=== PATIENT | male | born 1940 | race Two or more races ===

== ENCOUNTER 2016-08-30 07:12 | Inpatient (IN) | payer MEDICARE, BC, OTHER ==
[~2016-08-30] VITALS: Ht 165.1 cm; Wt 73.2 kg
[2016-08-30] MEDS ORDERED: KETOROLAC 30 MG/ML VIAL (J1885) As Ordered ONE (07:44)
[2016-08-30] MEDS ORDERED: ONDANSETRON 4MG/2ML VIAL (J2405) As Ordered ONE (07:44)
[2016-08-30] MEDS ORDERED: MORPHINE 2 MG/ML 1ML SYRINGE As Ordered ONE ×3 (08:56→13:22)
--- NOTE | 2016-08-30 09:04 | REP ---
Lumbar spine series: Five views. History: Pain. Findings: Five views of the lumbar spine show preserved vertebral body heights and normal alignment. Degenerative disc disease is seen throughout the lumbar spine. No fracture or collapse is seen. Pedicles and posterior elements are intact. There is no evidence of spondylolysis or spondylolisthesis. The discogenic spurring is only slightly more prominent than on a comparison study of March 30, 2009. Vascular calcification is noted in a normal caliber aorta. There is a mild levoconvex curvature unchanged from the comparison study. Mild facet hypertrophy is noted at L4-5 and L5-S1 bilaterally. Sacrum and SI joints are intact. Psoas margins are symmetric. There are healed fractures visible on the right at T11 and T10 ribs proximally. These were not visible in 2009. Impression: Degenerative disc disease diffusely. Mild facet hypertrophy. Changes slightly more prominent than on the 2009 prior study. No acute bony abnormality. Old healed rib fractures noted on the right at T11 and T10. Signed by Evert Romano MD 08/30/2016 09:24 A
[2016-08-30] MEDS ORDERED: ASPI1TAB PO (11:41)
[2016-08-30] MEDS ORDERED: HYDR200T3 PO (11:41)
[2016-08-30] MEDS ORDERED: RABE1TAB PO (11:41)
[2016-08-30] MEDS ORDERED: RAMI10CA PO (11:41)
[2016-08-30] MEDS ORDERED: FOLI1TAB2 PO (11:41)
[2016-08-30] MEDS ORDERED: METH2.5TA PO (11:41)
--- NOTE | 2016-08-30 13:58 | REP ---
Right hip series: Two views. History: Pain. Findings: AP and frog-leg views of the right hip are compared with the prior study from April 15, 2012. There is femoral acetabular spurring consistent with osteoarthritis. This is radiographically unchanged from the 2012 prior study. No erosive change is seen. Periarticular soft tissues are unremarkable. Impression: Right hip osteoarthritis. No fracture seen. No acute bony abnormality. Signed by Evert Romano MD 08/30/2016 03:00 P
[2016-08-30] MEDS ORDERED: PERCOCET 5MG/325MG TAB As Ordered ONE (14:07)
[2016-08-30 14:16] LABS: ANION GAP 8 MEQ/L (8-16); BLOOD UREA NITROGEN 25 MG/DL (7-18); CALCIUM LEVEL 8.7 MG/DL (8.8-10.2); CARBON DIOXIDE LEVEL 27 MEQ/L (21-32); CHLORIDE LEVEL 111 MEQ/L (98-107); GLUCOSE, FASTING 107 MG/DL (83-110); MAGNESIUM LEVEL 2.3 MG/DL (1.8-2.4); POTASSIUM SERUM 4.2 MEQ/L (3.5-5.1); SODIUM LEVEL 146 MEQ/L (136-145)
[2016-08-30 14:25] LABS: BASO % 0.2 % (0.0-1.0); EOS # 0.2 K/mm3 (0.0-0.50); EOS % 1.3 % (0.0-3.0); LARGE UNSTAINED CELL # 0.3 K/mm3 (0.0-0.4); LARGE UNSTAINED CELL % 2.3 % (0.0-4.0); LYMPH # 1.5 K/mm3 (1.5-4.5); LYMPH % 10.8 % (24.0-44.0); MEAN CORPUSCULAR HEMOGLOBIN 30.4 pg (27.0-33.0); MEAN CORPUSCULAR HGB CONC 32.3 g/dl (32.0-36.5); MEAN CORPUSCULAR VOLUME 94.2 fl (80.0-96.0); MONO # 1.3 K/mm3 (0.0-0.8); MONO % 9.7 % (0.0-5.0); NEUTROPHILS # 10.2 K/mm3 (1.8-7.7); NEUTROPHILS % 75.8 % (36.0-66.0); PLATELET COUNT, AUTOMATED 289 k/mm3 (150-450); RED CELL DISTRIBUTION WIDTH 13.5 % (11.5-14.5); WHITE BLOOD COUNT 13.5 K/mm3 (4.0-10.0)
[2016-08-30 14:49] LABS: CREATININE FOR GFR 1.23 MG/DL (0.70-1.30); GLOMERULAR FILTRATION RATE > 60.0 (>42)
[2016-08-30 15:11] LABS: ERYTHROCYTE SEDIMENTATION RATE 65 mm/hr (0-20)
--- NOTE | 2016-08-30 15:28 | HPE ---
DATE OF ADMISSION: 08/30/2016 PRIMARY CARE PROVIDER: Dr. Severiano Gann CHIEF COMPLAINT: Right-sided back pain. HISTORY OF PRESENT ILLNESS: This is a 76-year-old male patient with underlying medical history of rheumatoid arthritis, hypertension, gastroesophageal reflux disease (GERD). The patient presented to the hospital with right-sided back pain. As per patient on Saturday, the patient when he felt a pinch of pain going down his leg. The patient denies any fall. Denies any altered mental status. The patient subsequently drove home, but for the next 24 hours the patient was in the bed not able to do much walking, with significant pain with movement of right lower extremities. The patient denies any urinary incontinence or fecal incontinence. The patient denies any trauma or any strenuous activities. Denies any fevers or chills, dysuria. Denies any chest pain, pressure or discomfort. The patient denies any back pain in the past. ALLERGIES: SULFA antibiotics. PAST MEDICAL HISTORY: Rheumatoid arthritis. Hypertension. GERD. PAST SURGICAL HISTORY: Some facial cyst removal. SOCIAL HISTORY: The patient smokes a pack per day for 50 years. Agreeable to nicotine patch. The patient drinks alcohol, one beer once a month. FAMILY HISTORY: Noncontributory. HOME MEDICATION: - aspirin 81 mg by mouth nightly - folic acid 1 mg by mouth nightly - hydroxychloroquine 200 mg by mouth nightly - methotrexate 2.5 mg tablet, 7 tablets every Saturday - Rabeprazole 20 mg by mouth nightly - Ramipril 10 mg by mouth nightly REVIEW OF SYSTEMS: The patient denies any headache, lightheadedness, vision change, hearing change. Denies any fevers, chills. Denies any nausea, vomiting, shortness of breath, cough. Denies any chest pain, pressure or discomfort. Denies any palpitations. Denies any abdominal pain, diarrhea or constipation, dysuria or hematuria. Reported right hip pain with movement of right lower extremity. Sensation intact. No paresthesias bilateral. No bleeding or bruising. No depression or suicide ideation. PHYSICAL EXAMINATION: VITAL SIGNS: Temperature 97.4, pulse 72, respirations 20, blood pressure 141/67, pulse oximetry 93% on room air. GENERAL: The patient alert and oriented times three. In no acute distress. HEENT: Normocephalic, atraumatic. PULMONARY: Bilateral clear to auscultation. CARDIAC: Regular rate and rhythm. Normal S1, S2. ABDOMEN: Soft, nontender, nondistended. EXTREMITIES: No edema bilateral lower extremities. Right lower extremity straight leg test positive for significant pain. Left lower extremity straight leg test negative. Able to raise without any limitations. Significant point tenderness around the right side of patient's back around the right hip area and right flank. LABORATORY: WBC 13.5, hemoglobin and hematocrit 12.7/39.4, platelets 289. Chemistry: Sodium 146, potassium 4.2, chloride 111, bicarbonate 27, BUN 25, creatinine pending. Magnesium 2.3. X-rays of the hip and lumbar spine shows right hip osteoarthritis. No fracture seen. No bony abnormalities. X-ray of the lumbar spine shows degenerative disc disease diffusely. Mild facet hypertrophy. Change is slightly more pronounced compared to 2008. ASSESSMENT AND PLAN: This is a 76-year-old male patient with underlying medical history of rheumatoid arthritis, GERD, hypertension, smoker presented to the hospital with right-sided back pain and right hip pain. PROBLEM LIST: 1. Right-sided back pain. Right hip pain. X-rays appreciated. Will obtain MRI of the lumbosacral as well as the right hip. Physical therapy and pain management consulted. Continue pain medication as ordered. Bowel regimen is ordered. Will continue to follow. 2. Leukocytosis. Possible reactive versus infectious. Followup UA, urine cultures, blood cultures. Followup erythrocyte sedimentation rate, CRP. 3. History of rheumatoid arthritis. Continue home medications. 4. Hypertension. Continue home medications. 5. Smoking counseling provided. Nicotine patch. 6. GERD. Continue proton pump inhibitor (PPI). 7. Deep venous thrombosis (DVT) prophylaxis. Patient on heparin subcutaneous. DISPOSITION PLANNING: Pending pain management and additional imaging studies, physical therapy.
[2016-08-30] MEDS ORDERED: ACETAMINOPHEN 325 MG TAB As Ordered ONE (15:53)
--- NOTE | 2016-08-30 16:03 | REP ---
MRI LUMBAR SPINE WITHOUT CONTRAST: HISTORY: Back pain. Decreased signal intensity on T2-weighted images is present in the lumbar intervertebral discs. The L2-3 through L5-S1 intervertebral discs are decreased in height. These findings are consistent with disc degeneration. There is no disc bulge or herniation at the L1-2 level. The L1 nerves exit the neural foramina without compression. A diffuse disc bulge is present at the L2-3 level. There is hypertrophy of the ligamenta flava and posterior articulating facets. These findings produce mild central canal stenosis. The L2 nerves exit the neural foramina without compression. A diffuse disc bulge is present at the L3-4 level. There is hypertrophy of the ligamenta flava and posterior articulating facets. These findings produce mild central canal stenosis. The L3 nerves exit the neural foramina without compression. A diffuse disc bulge is present at the L4-5 level. There is hypertrophy of the ligamenta flava and posterior articulating facets. There are 3 mm of grade 1 spondylolisthesis of L4 on L5. These findings produce moderate central canal stenosis. The L4 nerves exit the neural foramina without compression. Fluid is present in the L4-5 facet joints. A diffuse disc bulge is present at the L5-S1 level. There is no thecal sac compression. There is hypertrophy of the posterior articulating facets. The L5 nerves exit the neural foramina without compression. The conus medullaris is normal in appearance terminating at the level of the T12-L1 intervertebral disc. Normal signal intensity is present in the lumbar vertebral bodies. A 4.9 cm cyst is present in the left kidney. IMPRESSION: 1. Minimal central canal stenosis at the L2-3 and L3-4 levels secondary to disc bulge, ligamentous and facet hypertrophy. 2. Moderate central canal stenosis at the L4-5 level secondary to disc bulge, ligamentous and facet hypertrophy and grade 1 spondylolisthesis. 3. Diffuse disc bulge at the L5-S1 level without thecal sac or nerve compression. 4. 4.9 cm left renal cyst. Ultrasound may be helpful for further evaluation. Signed by Brennen Monzon MD 08/30/2016 04:10 P
--- NOTE | 2016-08-30 16:24 | REP ---
MRI right hip without contrast: History: Right hip pain and back pain. Unable to ambulate. Comparison radiographs are from this date. Technique: Coronal bilateral T1 and T2-weighted scans are acquired. Axial coronal and sagittal high-resolution smaller field of view images are acquired with T1 and T2-weighted scanning. MRI findings: Cortical and medullary bone signal intensity are normal in the proximal femurs bilaterally. There is no evidence to suggest avascular necrosis. There is some acetabular and femoral head spurring bilaterally consistent with osteoarthritis. No significant hip joint effusion is seen on either side. No periarticular bursal fluid collection is seen. Incidental note is made of edema in the right paraspinal musculature at L4-S1 on the STIR coronal images. There is a large cyst at the top of the imaging field of view in the perirenal fat on the left consistent with a lower pole renal cyst. This measures 4.5 cm. Urinary bladder seminal vesicles and prostate are unremarkable. No abdominal wall defect is seen. No pelvic mass or adenopathy is observed. Small field of view right hip images show mild chondromalacia with areas of articular cartilage thinning. There is superior acetabular spurring and some early femoral head spurring. No definite labral cartilage tear is seen. No acute intra-articular or periarticular abnormality. Impression: Skeletal muscle edema in the dorsal paraspinal skeletal muscle adjacent at L4-S1 on the right side visible on STIR images. Uncertain significance. Question muscle strain. There is some mild right hip osteoarthritis with spurring and chondromalacia. No joint effusion or other acute musculoskeletal abnormality at the hip. Signed by Evert Romano MD 08/30/2016 04:53 P
--- NOTE | 2016-08-30 16:29 | EDDOCDS ---
Nurse's Notes [facility] Name: Balbir Lizama Age: 76 yrs Sex: Male : 1940 Arrival Date: 08/30/2016 Time: 07:12 Bed 15 Private MD: Diagnosis: Low back pain Presentation: 08/30 07:17 Presenting complaint: EMS states: patient has had right back pain since Saturday - was kcs doing some re-modeling when it happened feels like a pinch and goes down his leg. Mechanism of Injury: Lifting. Adult Sepsis Screening: Patient has new or worsening altered mentation (1 point). Patient has a respiratory rate of greater than or equal to 22 (1 point). Systolic blood pressure is less than or equal to 100 (1 point). Patient has a qSOFA score of 0- Negative Sepsis Screen. Suicide/Homicide risk assessment- the patient denies having any suicidal and/or homicidal ideations and does not present with any other emotional, behavioral or mental health complaints. Status: Patient is not a gas refrigerator servicer or dependent. Transition of care: patient was not received from another setting of care. Care prior to arrival: See EMS report. 07:17 Acuity: KINA Level 4 kcs 07:17 Method Of Arrival: Ambulance kcs Triage Assessment: 07:31 General: Appears uncomfortable, well developed, well nourished, well groomed, Behavior kcs is cooperative, pleasant. Pain: Location: right low back and down right leg Pain currently is 7 out of 10 on a pain scale. Quality of pain is described as pinching. The patient is triaged at the bedside. See Assessment in Nurses Notes section of ED record. Neurological: Level of Consciousness is awake, alert. Neurological: Moves all extremities. Speech is normal. Respiratory: Airway is patent Respiratory effort is even, unlabored, Respiratory pattern is regular, symmetrical. : Denies inability to void. Derm: Skin is intact, is healthy with good turgor, Skin is dry, Skin is normal. Historical: - Allergies: No known drug Allergies; - Home Meds: 1. Methotrexate (Anti-Rheumatic) 2.5 mg Oral tab once wkly on Saturday 2. ramipril 10 mg Oral cap 1 cap once daily 3. rabeprazole 20 mg oral TbEC 1 tab once daily 4. Lescol XL 80 mg Oral once daily 5. folic acid 1 mg Oral tab 1 tab once daily 6. aspirin 81 mg Oral tab 1 tab once daily 7. hydroxychloroquine 200 mg oral tab 1 tab once daily 8. ferrous sulfate 325 mg (65 mg iron) Oral cpER daily - PMHx: GERD; Hypertension; Arthritis; - PSHx: none; - Social history: Smoking status: Patient uses tobacco products, heavy tobacco smoker. No barriers to communication noted, The patient speaks fluent Kyrgyz. - Family history: Not pertinent. - : The pt / caregiver states he / she is not on anticoagulants. Home medication list is obtained from patient list. - Exposure Risk Screening:: None identified. Screenin:11 Screening information is obtained from the patient. Fall risk: At risk due to kcs immobility. Assistance ADL's: requires no assistance with activities of daily living. Abuse/DV Screen: The patient / caregiver reports he/she is: not in a situation that causes fear, pain or injury. Nutritional screening: No deficits noted. Advance Directives: Currently, there is a health care proxy, thinks it is a dough panner in [place]. home support is adequate. Assessment: 07:53 Reassessment: Patient with snoring respirations - talking very slowly and softly SaO2 = kcs 88% on RA - 2 liters O2 via NC applied and SaO2 increased to 91% - patient responds to verbal stimuli - provider informed. Call light on rail. Siderails up and at bedside.. General:. 08:08 Reassessment: patient states his pain = 4/10.. kcs 08:35 Reassessment: Patient returned from x-ray via stretcher - states pain = 4/10. Much more kcs alert and talking easily with . SaO2 on 2 liters = 99%.. 09:04 Reassessment: Patient medicated for continued pain in right low back = 4/10. aware we kcs will attempt to walk in about 15 minutes.. 10:30 Reassessment: clinical education coordinator attempted to walk patient but he could not even sit without kcs increased low back pain. Provider informed.. 10:51 Reassessment: Patient appears in no apparent distress at this time. reports was made to kr3 move on stretcher in attempt to get up which caused pain 05/14. 11:25 Reassessment: States still with right low back pain - made worse by trying to move kcs around and sitting up. Drinking juice and retaining. Respirations easy. Color = pink. Saline lock intact to LAC. is going home.. 11:56 Reassessment: Patient sleeping. Respirations easy. . kcs 12:33 Reassessment: Patient being evaluated by Dr. Euceda.. kcs 13:21 Reassessment: patient requesting more pain meds for continued low back pain and pain to kcs right leg = 02/11.. 14:04 Reassessment: Patient states no relief of pain - still 03/14. Patient has been to x-ray kcs again and is now going to MRI.. 15:58 Reassessment: Patient returned from MRI - now with fever - medicated and attempting to kcs eat some lunch. States his back pain is down to 01/12.. 16:01 Reassessment: 5 Tremaine Albright) contacted and given patient update with temp and meds..kcs 16:22 Reassessment: Patient appeared more comfortable until repositioned in bed and then back kcs pain got worse again = 03/14. Prior patient had felt improved enough that he thought about sitting on the side of the bed. Did eat half a sandwich and some fruit. is back at bedside. . General: Appears uncomfortable, well developed, well nourished, well groomed, Behavior is cooperative, pleasant. Pain: Location: right low back and down right leg Pain currently is 8 out of 10 on a pain scale. Neurological: Level of Consciousness is awake, alert. Respiratory: Airway is patent Respiratory effort is even, unlabored, Respiratory pattern is regular, symmetrical. Derm: Skin is intact, is healthy with good turgor, Skin is dry, Skin is normal. Vital Signs: 07:21 BP 141 / 67; Pulse 72; Resp 20; Temp 97.4(O); Pulse Ox 93% on R/A; Weight 68.04 kg (R); kcs Height 5 ft. 5 in. (165.10 cm) (R); Pain 7/10; 07:55 BP 156 / 79; Pulse 76; Resp 16; Pulse Ox 91% on 2 lpm NC; kcs 09:03 BP 151 / 78; Pulse 77; Resp 18; Pulse Ox 97% on 2 lpm NC; Pain 4/10; kcs 10:41 dem1 10:51 BP 175 / 76; Pulse 80; Resp 18; Pulse Ox 96% ; Pain 10/10; kr3 11:25 BP 139 / 68; Pulse 75; Resp 18; Pulse Ox 95% on R/A; Pain 6/10; kcs 13:31 BP 165 / 77; Pulse 72; Resp 20; Pulse Ox 92% on 2 lpm NC; Pain 8/10; kcs 13:54 Pain 8/10; kr3 14:11 Temp 99.6(O); kcs 15:51 Temp 101.5(TE); kcs 16:22 BP 133 / 67; Pulse 64; Resp 20; Temp 101.6(TE); Pulse Ox 91% on R/A; Pain 8/10; kcs 07:21 Body Mass Index 24.96 (68.04 kg, 165.10 cm) kcs 10:41 Patient refused to ambulate due to pain dem1 Vitals: 07:21 Log In Time N/A - ambulance arrival. kcs ED Course: 07:13 Patient visited by Dagamr Eubanks, Garnett Feeder. deg 07:13 Patient moved to Waiting deg 07:13 Patient moved to 15 deg 07:14 Brittani Madrigal MD is Attending Physician. sd1 07:15 Patient visited by Brittani Madrigal MD. sd1 07:20 Triage Initiated kcs 07:30 Inserted saline lock: 20 gauge in left antecubital area The patient tolerated the kcs procedure well. 08:11 Patient visited by Annette Rdz PCA. ct3 09:05 Spine. Lumbosacral, Complete Returned. EDMS 09:35 Patient visited by Annette Rdz PCA. ct3 10:41 Patient visited by Berry Ruiz. dem1 11:12 Jackie Euceda is Hospitalizing Provider. sd1 13:22 Patient visited by Mervat Hercules RN. kcs 14:11 The patient / caregiver is instructed regarding the plan of care and ED course. kcs 14:37 Hip, Ap,Lat Returned. EDMS 16:22 IV is patent, is intact. No procedures done that require assistance. kcs 16:23 MRI Spine, L.S. without con Returned. EDMS Administered Medications: 07:22 CANCELLED (Other Intervention Used): morphine 4 mg IVP every 15 minutes; Document pain sd1 score/vitals after each dose (Hold if SBP < 90mmHg) x2 07:51 Drug: ketorolac 15 mg [ketorolac 30 mg/mL (1 mL) injection solution (0.5 mL)] Route: kcs IVP; Site: left antecubital; 07:52 Drug: Ondansetron 4 mg [ondansetron HCl 2 mg/mL intravenous solution (2 mL)] Route: kcs IVP; Site: left antecubital; 07:56 Drug: Diazepam 5 mg [diazepam 5 mg/mL injection syringe (1 mL)] Route: IVP; Site: left kcs antecubital; 09:02 Drug: morphine 2 mg [morphine 2 mg/mL intravenous cartridge (1 mL)] Route: IVP; Site: kcs left antecubital; 10:51 Drug: morphine 2 mg [morphine 2 mg/mL intravenous cartridge (1 mL)] Route: IVP; Site: kr3 left antecubital; 13:25 Drug: morphine 2 mg [morphine 2 mg/mL intravenous cartridge (1 mL)] Route: IVP; Site: kcs left antecubital; 13:54 Follow up: Pain 8/10 Adult; Response: No significant change. kr3 14:10 Drug: oxyCODONE-acetaminophen 1 tabs [oxycodone-acetaminophen 5 mg-325 mg tablet (1 kcs tabs)] Route: PO; 15:58 Drug: Acetaminophen 650 mg [acetaminophen 325 mg tablet (2 tabs)] Route: PO; [facility] Order Results: Lab Order: CBC with Diff; SPEC'M 08/30/16 13:54 Test: WHITE BLOOD COUNT; Value: 13.5; Range: 4.0-10.0; Abnormal: Above high normal; Units: K/mm3; Status: F Test: RED BLOOD COUNT; Value: 4.18; Range: 4.30-6.10; Abnormal: Below low normal; Units: M/mm3; Status: F Test: HEMOGLOBIN; Value: 12.7; Range: 14.0-18.0; Abnormal: Below low normal; Units: g/dl; Status: F Test: HEMATOCRIT; Value: 39.4; Range: 42.0-52.0; Abnormal: Below low normal; Units: %; Status: F Test: MEAN CORPUSCULAR VOLUME; Value: 94.2; Range: 80.0-96.0; Units: fl; Status: F Test: MEAN CORPUSCULAR HEMOGLOBIN; Value: 30.4; Range: 27.0-33.0; Units: pg; Status: F Test: MEAN CORPUSCULAR HGB CONC; Value: 32.3; Range: 32.0-36.5; Units: g/dl; Status: F Test: RED CELL DISTRIBUTION WIDTH; Value: 13.5; Range: 11.5-14.5; Units: %; Status: F Test: PLATELET COUNT, AUTOMATED; Value: 289; Range: 150-450; Units: k/mm3; Status: F Test: NEUTROPHILS %; Value: 75.8; Range: 36.0-66.0; Abnormal: Above high normal; Units: %; Status: F Test: LYMPH %; Value: 10.8; Range: 24.0-44.0; Abnormal: Below low normal; Units: %; Status: F Test: MONO %; Value: 9.7; Range: 0.0-5.0; Abnormal: Above high normal; Units: %; Status: F Test: EOS %; Value: 1.3; Range: 0.0-3.0; Units: %; Status: F Test: BASO %; Value: 0.2; Range: 0.0-1.0; Units: %; Status: F Test: LARGE UNSTAINED CELL %; Value: 2.3; Range: 0.0-4.0; Units: %; Status: F Test: NEUTROPHILS #; Value: 10.2; Range: 1.8-7.7; Abnormal: Above high normal; Units: K/mm3; Status: F Test: LYMPH #; Value: 1.5; Range: 1.5-4.5; Units: K/mm3; Status: F Test: MONO #; Value: 1.3; Range: 0.0-0.8; Abnormal: Above high normal; Units: K/mm3; Status: F Test: EOS #; Value: 0.2; Range: 0.0-0.50; Units: K/mm3; Status: F Test: BASO #; Value: 0.0; Range: 0.0-0.2; Units: K/mm3; Status: F Test: LARGE UNSTAINED CELL #; Value: 0.3; Range: 0.0-0.4; Units: K/mm3; Status: F Lab Order: Sed Rate; SPEC'M 08/30/16 13:54 Test: ERYTHROCYTE SEDIMENTATION RATE; Value: 65; Range: 0-20; Abnormal: Above high normal; Units: mm/hr; Status: F Lab Order: BASIC METABOLIC PROFILE; SPEC'M 08/30/16 13:34 Test: GLUCOSE, FASTING; Value: 107; Range: 83-110; Units: MG/DL; Status: F Test: BLOOD UREA NITROGEN; Value: 25; Range: 7-18; Abnormal: Above high normal; Units: MG/DL; Status: F Test: CREATININE FOR GFR; Value: 1.23; Range: 0.70-1.30; Units: MG/DL; Status: F Test: SODIUM LEVEL; Value: 146; Range: 136-145; Abnormal: Above high normal; Units: MEQ/L; Status: F Test: POTASSIUM SERUM; Value: 4.2; Range: 3.5-5.1; Units: MEQ/L; Status: F Test: CHLORIDE LEVEL; Value: 111; Range: 98-107; Abnormal: Above high normal; Units: MEQ/L; Status: F Test: CARBON DIOXIDE LEVEL; Value: 27; Range: 21-32; Units: MEQ/L; Status: F Test: ANION GAP; Value: 8; Range: 8-16; Units: MEQ/L; Status: F Test: CALCIUM LEVEL; Value: 8.7; Range: 8.8-10.2; Abnormal: Below low normal; Units: MG/DL; Status: F Test: GLOMERULAR FILTRATION RATE; Value: > 60.0; Range: >42; Status: F Test: SODIUM LEVEL; Value: 146; Range: 136-145; Abnormal: Above high normal; Units: MEQ/L; Status: F Test: POTASSIUM SERUM; Value: 4.2; Range: 3.5-5.1; Units: MEQ/L; Status: F Test: CHLORIDE LEVEL; Value: 111; Range: 98-107; Abnormal: Above high normal; Units: MEQ/L; Status: F Test: CARBON DIOXIDE LEVEL; Value: 27; Range: 21-32; Units: MEQ/L; Status: F Test: ANION GAP; Value: 8; Range: 8-16; Units: MEQ/L; Status: F Test: CALCIUM LEVEL; Value: 8.7; Range: 8.8-10.2; Abnormal: Below low normal; Units: MG/DL; Status: F Test Note: ; Units are mL/min/1.73 m2 Chronic Kidney Disease Staging per NKF: Stage I & II GFR >=60 Normal to Mildly Decreased Stage III GFR 30-59 Moderately Decreased Stage IV GFR 15-29 Severely Decreased Stage V GFR <15 Very Little GFR Left ESRD GFR <15 on [facility]ER Lab Order: MAGNESIUM LEVEL; SPEC'M 08/30/16 13:34 Test: MAGNESIUM LEVEL; Value: 2.3; Range: 1.8-2.4; Units: MG/DL; Status: F Radiology Order: Spine. Lumbosacral, Complete Test: Spine. Lumbosacral, Complete REASON FOR EXAMINATION: pain; Lumbar spine series: Five views.; ; History: Pain.; ; Findings: Five views of the lumbar spine show preserved vertebral body heights; and normal alignment. Degenerative disc disease is seen throughout the lumbar; spine. No fracture or collapse is seen. Pedicles and posterior elements are; intact. There is no evidence of spondylolysis or spondylolisthesis. The; discogenic spurring is only slightly more prominent than on a comparison study of; March 30, 2009. Vascular calcification is noted in a normal caliber aorta.; There is a mild levoconvex curvature unchanged from the comparison study. Mild; facet hypertrophy is noted at L4-5 and L5-S1 bilaterally. Sacrum and SI joints; are intact. Psoas margins are symmetric. There are healed fractures visible on; the right at T11 and T10 ribs proximally. These were not visible in 2008.; ; Impression:; ; Degenerative disc disease diffusely. Mild facet hypertrophy. Changes slightly; more prominent than on the 2008 prior study. No acute bony abnormality. Old; healed rib fractures noted on the right at T11 and T10.; ; ; Signed by; Evert Romano MD 08/30/2016 09:24 A; Radiology Order: Hip, Ap,Lat Test: Hip, Ap,Lat REASON FOR EXAMINATION: pain; Right hip series: Two views.; ; History: Pain.; ; Findings: AP and frog-leg views of the right hip are compared with the prior; study from April 15, 2012. There is femoral acetabular spurring consistent; with osteoarthritis. This is radiographically unchanged from the 2012 prior; study. No erosive change is seen. Periarticular soft tissues are unremarkable.; ; Impression:; ; Right hip osteoarthritis. No fracture seen. No acute bony abnormality.; ; ; Signed by; Evert Romano MD 08/30/2016 03:00 P; Radiology Order: MRI Spine, L.S. without con Test: MRI Spine, L.S. without con REASON FOR EXAMINATION: back pain; MRI LUMBAR SPINE WITHOUT CONTRAST:; ; HISTORY: Back pain.; ; Decreased signal intensity on T2-weighted images is present in the lumbar; intervertebral discs. The L2-3 through L5-S1 intervertebral discs are decreased; in height. These findings are consistent with disc degeneration.; ; There is no disc bulge or herniation at the L1-2 level. The L1 nerves exit the; neural foramina without compression.; ; A diffuse disc bulge is present at the L2-3 level. There is hypertrophy of the; ligamenta flava and posterior articulating facets. These findings produce mild; central canal stenosis. The L2 nerves exit the neural foramina without; compression.; ; A diffuse disc bulge is present at the L3-4 level. There is hypertrophy of the; ligamenta flava and posterior articulating facets. These findings produce mild; central canal stenosis. The L3 nerves exit the neural foramina without; compression.; ; A diffuse disc bulge is present at the L4-5 level. There is hypertrophy of the; ligamenta flava and posterior articulating facets. There are 3 mm of grade 1; spondylolisthesis of L4 on L5. These findings produce moderate central canal; stenosis. The L4 nerves exit the neural foramina without compression. Fluid is; present in the L4-5 facet joints.; ; A diffuse disc bulge is present at the L5-S1 level. There is no thecal sac; compression. There is hypertrophy of the posterior articulating facets. The L5; nerves exit the neural foramina without compression.; ; The conus medullaris is normal in appearance terminating at the level of the; T12-L1 intervertebral disc. Normal signal intensity is present in the lumbar; vertebral bodies. A 4.9 cm cyst is present in the left kidney.; ; IMPRESSION:; ; 1. Minimal central canal stenosis at the L2-3 and L3-4 levels secondary to disc; bulge, ligamentous and facet hypertrophy.; ; 2. Moderate central canal stenosis at the L4-5 level secondary to disc bulge,; ligamentous and facet hypertrophy and grade 1 spondylolisthesis.; ; 3. Diffuse disc bulge at the L5-S1 level without thecal sac or nerve; compression.; ; ; 4. 4.9 cm left renal cyst. Ultrasound may be helpful for further evaluation.; ; ; Signed by; Brennen Monzon MD 08/30/2016 04:10 P; Outcome: 11:12 Decision to Hospitalize by Provider. sd1 14:20 Admission hand-off: Report Faxed. kcs 16:22 Discharge Assessment: Patient awake, alert and oriented x 3. No cognitive and/or kcs functional deficits noted. Patient verbalized understanding of disposition instructions. Patient awake and alert. patient administered narcotics - yes. Patient was admitted to the hospital or transferred to another facility. The following High Risk Discharge criteria are identified: None. Admitted to Med/Surg accompanied by tech, via stretcher, with chart. Condition: stable. MRI Study completed. Property :Personal belongings accompany Pt. 16:28 Patient left the ED. kcs Signatures: Dispatcher [employer] EDMS Brittani Madrigal MD MD sd1 Mervat Hercules, RN RN kcs Dagmar Eubanks, Garnett Feeder Unit deg Anne Marie Elder,RN RN kr3 Annette Rdz, MANAGER ENGINE MANAGER ENGINE ct3 Berry Ruiz1 Corrections: (The following items were deleted from the chart) 16:02 16:01 Reassessment: 5 Penaloza contacted and given patient update with temp and meds.. kcs kcs MTDD
--- NOTE | 2016-08-30 16:29 | EDDOCDS ---
Physician Documentation [facility] Name: Balbir Lizama Age: 76 yrs Sex: Male : 1940 Arrival Date: 08/30/2016 Time: 07:12 Bed 15 Private MD: Disposition: 08/30/16 11:12 Hospitalization ordered by Jackie Euceda for Inpatient Admission. Preliminary diagnosis is Low back pain. - Bed requested for 5 Pen[place]. - Status is Inpatient Admission. kcs - Condition is Stable. - Problem is new. - Symptoms are unchanged. Historical: - Allergies: No known drug Allergies; - Home Meds: 1. Methotrexate (Anti-Rheumatic) 2.5 mg Oral tab once wkly on Saturday 2. ramipril 10 mg Oral cap 1 cap once daily 3. rabeprazole 20 mg oral TbEC 1 tab once daily 4. Lescol XL 80 mg Oral once daily 5. folic acid 1 mg Oral tab 1 tab once daily 6. aspirin 81 mg Oral tab 1 tab once daily 7. hydroxychloroquine 200 mg oral tab 1 tab once daily 8. ferrous sulfate 325 mg (65 mg iron) Oral cpER daily - PMHx: GERD; Hypertension; Arthritis; - PSHx: none; - Social history: Smoking status: Patient uses tobacco products, heavy tobacco smoker. No barriers to communication noted, The patient speaks fluent Icelandic. - Family history: Not pertinent. - : The pt / caregiver states he / she is not on anticoagulants. Home medication list is obtained from patient list. - Exposure Risk Screening:: None identified. Vital Signs: 08/30 07:21 BP 141 / 67; Pulse 72; Resp 20; Temp 97.4(O); Pulse Ox 93% on R/A; Weight 68.04 kg / kcs 150 lbs (R); Height 5 ft. 5 in. (165.10 cm) (R); Pain 7/10; 07:55 BP 156 / 79; Pulse 76; Resp 16; Pulse Ox 91% on 2 lpm NC; kcs 09:03 BP 151 / 78; Pulse 77; Resp 18; Pulse Ox 97% on 2 lpm NC; Pain 4/10; kcs 10:41 dem1 10:51 BP 175 / 76; Pulse 80; Resp 18; Pulse Ox 96% ; Pain 10/10; kr3 11:25 BP 139 / 68; Pulse 75; Resp 18; Pulse Ox 95% on R/A; Pain 6/10; kcs 13:31 BP 165 / 77; Pulse 72; Resp 20; Pulse Ox 92% on 2 lpm NC; Pain 8/10; kcs 13:54 Pain 8/10; kr3 14:11 Temp 99.6(O); kcs 15:51 Temp 101.5(TE); kcs 16:22 BP 133 / 67; Pulse 64; Resp 20; Temp 101.6(TE); Pulse Ox 91% on R/A; Pain 8/10; kcs 07:21 Body Mass Index 24.96 (68.04 kg, 165.10 cm) kcs 10:41 Patient refused to ambulate due to pain dem1 MDM: 07:20 IV Saline Lock ordered. sd1 07:20 ketorolac 15 mg IVP once ordered. sd1 07:21 Ondansetron 4 mg IVP once ordered. sd1 07:21 Spine. Lumbosacral, Complete Ordered. EDMS 07:22 Diazepam 5 mg IVP once ordered. sd1 08:41 Financial registration complete. jp5 08:49 Misc. Nursing Order ordered. sd1 08:55 morphine 2 mg IVP every 15 minutes; Document pain score/vitals after each dose (Hold if sd1 SBP < 90mmHg) x3 ordered. 10:59 BED REQUEST+ADM ordered. EDMS 11:00 CBC with Diff Ordered. EDMS 11:00 Sed Rate Ordered. EDMS 13:15 PHYSICAL THERAPY EVAL & TREAT ordered. EDMS 13:15 Hip, Ap,Lat Ordered. EDMS 13:22 Admission / Observation Status ordered. EDMS 13:22 REGULAR DIET ordered. EDMS 13:23 BASIC METABOLIC PROFILE Ordered. EDMS 13:23 MAGNESIUM LEVEL Ordered. EDMS 13:24 MRI Spine, L.S. without con Ordered. EDMS 13:24 MRI-Hip WITHOUT CONTRAST Ordered. EDMS 14:06 oxyCODONE-acetaminophen 5 mg-325 mg 1 tabs PO once ordered. kcs 14:37 URINALYSIS Ordered. EDMS 14:37 BLOOD CULTURES Ordered. EDMS 14:37 BLOOD CULTURES Ordered. EDMS 14:37 URINE CULTURE Ordered. EDMS 15:52 Acetaminophen Tablet 650 mg PO once ordered. kcs Administered Medications: 07:22 CANCELLED (Other Intervention Used): morphine 4 mg IVP every 15 minutes; Document pain sd1 score/vitals after each dose (Hold if SBP < 90mmHg) x2 07:51 Drug: ketorolac 15 mg [ketorolac 30 mg/mL (1 mL) injection solution (0.5 mL)] Route: [facility] IVP; Site: left antecubital; 07:52 Drug: Ondansetron 4 mg [ondansetron HCl 2 mg/mL intravenous solution (2 mL)] Route: [facility] IVP; Site: left antecubital; 07:56 Drug: Diazepam 5 mg [diazepam 5 mg/mL injection syringe (1 mL)] Route: IVP; Site: left kcs antecubital; 09:02 Drug: morphine 2 mg [morphine 2 mg/mL intravenous cartridge (1 mL)] Route: IVP; Site: [facility] left antecubital; 10:51 Drug: morphine 2 mg [morphine 2 mg/mL intravenous cartridge (1 mL)] Route: IVP; Site: kr3 left antecubital; 13:25 Drug: morphine 2 mg [morphine 2 mg/mL intravenous cartridge (1 mL)] Route: IVP; Site: [facility] left antecubital; 13:54 Follow up: Pain 8/10 Adult; Response: No significant change. kr3 14:10 Drug: oxyCODONE-acetaminophen 1 tabs [oxycodone-acetaminophen 5 mg-325 mg tablet (1 kcs tabs)] Route: PO; 15:58 Drug: Acetaminophen 650 mg [acetaminophen 325 mg tablet (2 tabs)] Route: PO; [facility] Signatures: Dispatcher [employer] EDMS Brittani Madrigal MD MD sd1 Mervat Hercules RN RN kcs Donoghue, Joseph, COTTON BUYER COTTON BUYER jrd Sarah Woods jp5 Serg Pandey RN RN sa Robie, Kathleen RN kr3 The chart was reviewed and I authenticate all verbal orders and agree with the evaluation and treatment provided.Corrections: (The following items were deleted from the chart) 07:22 07:21 morphine 4 mg IVP every 15 minutes; Document pain score/vitals after each dose sd1 (Hold if SBP < 90mmHg) x2 ordered. sd1 13:24 13:14 MRI Spine, L.S. with con ordered. EDMS EDMS 13:24 13:14 MRI HIP WITH CONTRAST ordered. EDMS EDMS 13:42 11:00 BASIC METABOLIC PROFILE+LAB ordered. EDMS EDMS MTDD
[2016-08-30 16:45] VITALS: BP 166/73
[2016-08-30] MEDS: PANTOPRAZOLE 40MG TAB (PROTONIX) PO SCH (17:32)
[2016-08-30] MEDS: SENOKOT S TAB PO SCH ×2 (17:32→20:32)
[2016-08-30] MEDS: NICOTINE 21MG/24HR 1 EA TRANSDERMAL TD SCH (17:32)
[2016-08-30] MEDS: HEPARIN SOD (PORCINE) 5000 UNITS/ML VIAL SC SCH ×2 (17:32→20:32)
[2016-08-30] MEDS: PERCOCET 5MG/325MG TAB PO PRN ×2 (17:33→21:56)
[2016-08-30] MEDS: FOLIC ACID 1 MG TAB PO SCH (20:32)
[2016-08-30] MEDS: ASPIRIN 81 MG ENTERIC TAB PO SCH (20:33)
[2016-08-30] MEDS: RAMIPRIL 5 MG CAP PO SCH (20:33)
[2016-08-30] MEDS: HYDROXYCHLOROQUINE 200 MG TAB PO SCH (20:33)
[2016-08-30] MEDS ORDERED: PANTOPRAZOLE 20 MG TAB PO SCH (21:00)
[2016-08-30] MEDS: ONDANSETRON 4MG/2ML VIAL (J2405) IV PRN (21:56)
[2016-08-30 22:00] VITALS: BP 161/75
[2016-08-31] MEDS: PERCOCET 5MG/325MG TAB PO PRN ×4 (05:28→23:10)
[2016-08-31] MEDS: ONDANSETRON 4MG/2ML VIAL (J2405) IV PRN ×2 (05:28→14:59)
[2016-08-31] MEDS: HEPARIN SOD (PORCINE) 5000 UNITS/ML VIAL SC SCH ×3 (05:29→20:23)
[2016-08-31 06:00] VITALS: BP 171/61
[2016-08-31] MEDS: MORPHINE 2 MG/ML 1ML SYRINGE IV PRN ×2 (06:08→08:51)
[2016-08-31 07:08] LABS: ANION GAP 10 MEQ/L (8-16); BLOOD UREA NITROGEN 27 MG/DL (7-18); CALCIUM LEVEL 8.5 MG/DL (8.8-10.2); CARBON DIOXIDE LEVEL 23 MEQ/L (21-32); CHLORIDE LEVEL 107 MEQ/L (98-107); CREATININE FOR GFR 1.11 MG/DL (0.70-1.30); GLOMERULAR FILTRATION RATE > 60.0 (>42); GLUCOSE, FASTING 134 MG/DL (83-110); MAGNESIUM LEVEL 2.3 MG/DL (1.8-2.4); POTASSIUM SERUM 4.2 MEQ/L (3.5-5.1); SODIUM LEVEL 140 MEQ/L (136-145)
[2016-08-31 07:11] LABS: MEAN CORPUSCULAR HEMOGLOBIN 30.1 pg (27.0-33.0); MEAN CORPUSCULAR HGB CONC 32.9 g/dl (32.0-36.5); MEAN CORPUSCULAR VOLUME 91.6 fl (80.0-96.0); RED CELL DISTRIBUTION WIDTH 14.4 % (11.5-14.5)
--- NOTE | 2016-08-31 08:08 | IPNPDOC ---
Assessment/Plan Date Seen The patient was seen on 08/31/16. Problems Problems: (1) Low back pain radiating down leg Status: Acute Problem Text: Has moderate spinal canal stenosis at the l4 l5 level , no nerve compression noted in the MRI of the spine. MRi of the hip shows some muscle edema in the paraspinal region with possible spam will start the patient on lidoderm patch , tizanidine and continue percocet. Pain management and PT to see the patient. (2) Rheumatoid arthritis Status: Chronic Problem Text: continue home medications (3) Hypertension Status: Chronic Problem Text: continue home medication (4) GERD (gastroesophageal reflux disease) Status: Chronic Problem Text: continue PPI Plan / VTE VTE Prophylaxis Ordered?: Yes Subjective Review of Systems CC/HPI The patient is a 76-year-old male admitted with a reason for visit of Leg Weakness. Events since last encounter still with severe pain in the right lower back and inability to ambulate. denies any trauma or any tripping , said it started suddenly while he was walking he felt a pop then the pain came. no fever or chills, no chest pain or sob ,no abdominal pain nausea or vomiting. Objective Physical Examination General Exam: Positive: Alert, No Acute Distress Eye Exam: Positive: Conjunctiva & lids normal, EOMI, PERRLA, Negative: Sclera icteric ENT Exam: Positive: Atraumatic, Mucous membr. moist/pink, Pharynx Normal Neck Exam: Positive: Supple, Negative: JVD, thyromegaly Chest Exam: Positive: Clear to auscultation, Normal air movement Heart Exam: Positive: Normal S1, Normal S2, Rate Normal, Regular Rhythm, Negative: Murmurs, Rubs Abdomen Exam: Positive: Normal bowel sounds, Soft, Negative: Hepatospenomegaly, Tenderness Extremity Exam: Positive: Normal pulses, Negative: Clubbing, Cyanosis, Edema Neuro Exam: Positive: Normal Speech, Other (SLR positive at about 40 degree on the right leg. ), Sensation Intact, Strength at 5/5 X4 ext Vital Signs/I&O Vital Signs Date Time Temp Pulse Resp B/P Pulse Ox O2 Delivery O2 Flow Rate FiO2 08/31/16 06:18 18 08/31/16 06:00 99.7 77 171/61 98 Room Air 08/30/16 21:00 2.0 I&O- Last 24 Hours up to 6 AM 08/31/16 06:00 Intake Total 240 ml Output Total 0 ml Balance 240 ml Laboratory Data Labs 24H Laboratory Tests 2 08/30/16 13:34: Anion Gap 8, Blood Urea Nitrogen 25H, Creatinine 1.23, Sodium Level 146H, Potassium Level 4.2, Chloride Level 111H, Carbon Dioxide Level 27, Calcium Level 8.7L, Glomerular Filtration Rate > 60.0, Magnesium Level 2.3 08/30/16 13:54: White Blood Count 13.5H, Red Blood Count 4.18L, Hemoglobin 12.7L, Hematocrit 39.4L, Mean Corpuscular Volume 94.2, Mean Corpuscular Hemoglobin 30.4, Mean Corpuscular Hemoglobin Concent 32.3, Red Cell Distribution Width 13.5, Platelet Count 289, Neutrophils (%) (Auto) 75.8H, Lymphocytes (%) (Auto) 10.8L, Monocytes (%) (Auto) 9.7H, Eosinophils (%) (Auto) 1.3, Basophils (%) (Auto) 0.2 , Neutrophils # (Auto) 10.2H, Lymphocytes # (Auto) 1.5, Monocytes # (Auto) 1.3H , Eosinophils # (Auto) 0.2, Basophils # (Auto) 0.0, Erythrocyte Sedimentation Rate 65H, Large Unclassified Cells # 0.3, Large Unclassified Cells % 2.3 08/31/16 06:32: Anion Gap 10, Blood Urea Nitrogen 27H, Creatinine 1.11, Sodium Level 140, Potassium Level 4.2, Chloride Level 107, Carbon Dioxide Level 23, Calcium Level 8.5L, Glomerular Filtration Rate > 60.0, Magnesium Level 2.3, C-Reactive Protein , Quantitative 21.40H CBC/BMP Laboratory Tests 08/30/16 13:34 Calcium Level 8.7 L 08/30/16 13:54 Red Blood Count 4.18 L, Mean Corpuscular Volume 94.2, Mean Corpuscular Hemoglobin 30.4, Mean Corpuscular Hemoglobin Concent 32.3, Red Cell Distribution Width 13.5, Neutrophils (%) (Auto) 75.8 H, Lymphocytes (%) (Auto) 10.8 L, Monocytes (%) (Auto) 9.7 H, Eosinophils (%) (Auto) 1.3, Basophils (%) ( Auto) 0.2, Neutrophils # (Auto) 10.2 H, Lymphocytes # (Auto) 1.5, Monocytes # ( Auto) 1.3 H, Eosinophils # (Auto) 0.2, Basophils # (Auto) 0.0 08/31/16 06:32 Calcium Level 8.5 L, Red Blood Count 3.93 L, Mean Corpuscular Volume 91.6, Mean Corpuscular Hemoglobin 30.1, Mean Corpuscular Hemoglobin Concent 32.9, Red Cell Distribution Width 14.4 Microbiology Microbiology 08/30/16 Blood Culture, Received Pending 08/30/16 Blood Culture, Received Pending ROSE MARY CASTANON MD Aug 31, 2016 08:08
[2016-08-31] MEDS: NICOTINE 21MG/24HR 1 EA TRANSDERMAL TD SCH (08:40)
[2016-08-31] MEDS: tiZANidine 4 MG TAB PO SCH ×2 (08:41→20:25)
[2016-08-31] MEDS: LIDOCAINE 5% (LIDODERM) PATCH TD SCH (08:41)
[2016-08-31] MEDS: PANTOPRAZOLE 40MG TAB (PROTONIX) PO SCH (08:41)
[2016-08-31] MEDS: SENOKOT S TAB PO SCH ×2 (08:41→20:24)
[2016-08-31] MEDS ORDERED: VANCOMYCIN HCL 1,000 MG, VIAL MATE ADAPTER 1 EACH in D5W 250 ML IV ONE (11:00)
[2016-08-31 11:12] VITALS: BP 149/69
--- NOTE | 2016-08-31 11:25 | PHACANCOPD ---
PHARMACY VANCOMYCIN DOSING Pt Demographics Demographics Patient Age:76 , Weight:88.200 , Gender: male Adjusted Body Weight Date: 08/31/16, Adjusted Body Weight: [72.2] Kg Events Past 24 Hours Events Past 24 Hours: NO: Change in CrCl, Dialysis, Diuretic Therapy, Elevation in WBC, Fever, Other, Pending Diagnostics, Pending Procedures Vancomycin Vancomycin indication: bacterimia Vancomycin Target Ranges: 15-20 mcg/ml Vancomycin Load Y/N: Yes Load Dose Date Time Vancomycin Load Dose: 1.75g Date: 08/31/16 Time: 11:00 Vancomycin Dose Date: 08/31/16. Current Vancomycin Dose: [750mg q12h] Intermittent Dosing?: No Labs Labs Item Value Date Time Creatinine 1.23 MG/DL 08/30/16 1334 Creatinine 1.11 MG/DL 08/31/16 0632 White Blood Count 13.5 K/mm3 H 08/30/16 1354 White Blood Count 17.0 K/mm3 H 08/31/16 0632 Vital Signs Label Value Date Time Patient Temperature 99.7 degrees F 08/31/16 0600 Temperature Source Core 08/31/16 0600 Patient Temperature 99.7 degrees F 08/30/16 2200 Temperature Source Tympanic 08/30/16 2200 Micro Microbiology 08/31/16 Blood Culture, Received Pending 08/31/16 Blood Culture, Received Pending 08/30/16 Blood Culture - Preliminary, Resulted 08/30/16 Blood Culture - Preliminary, Resulted Creatinine Clearance Date:08/31/16. Creatinine Clearance: [60.2ml/min]. Pending Labs 08/31/16 blood culture pending Assessment and Plan Maintaining Current Dose?: Yes Reason for dose change: No Dose Change Pharmacist Note Pharmacist Note Date: 08/31/16. Pharmacist note: Pt is a 76 Y/o male being treated for bacterimia with a target trough of 15-20mcg/ml. Pt does not have a history of vancomycin therapy at [facility]. A loading dose of 1.75g was started at 11, maintenance will be 750mg every 12 hours starting at midnight. A trough was scheduled for 2300 07/02/17 we will continue to monitor and adjust as needed. [facility] Aug 31, 2016 11:25
[2016-08-31] MEDS: SUCRALFATE SUSP 1GM/10ML UD PO SCH ×3 (12:22→20:23)
[2016-08-31] MEDS: VANCOMYCIN HCL 750 MG, VIAL MATE ADAPTER 1 EACH in D5W 250 ML IV SCH ×2 (13:45→23:10)
[2016-08-31 14:00] VITALS: BP 151/71
[2016-08-31] MEDS: D5W/0.9% SODIUM CHLORIDE 1,000 ML IV SCH (14:58)
--- NOTE | 2016-08-31 17:38 | CR ---
DATE OF CONSULTATION: 08/31/2016 REFERRING PHYSICIAN: Lucille Herrera MD CHIEF COMPLAINT: 1. Right low back pain. 2. Right thigh pain. HISTORY OF PRESENT ILLNESS: Balbir is a 76-year-old gentleman who reports sudden onset of right low back and thigh pain after getting out of his truck 4 days ago. He has never had issues of severe back pain where he has had to seek medical attention, but states he became unable to walk. He was admitted yesterday. Hospital course has been complicated with elevated white count and coffee-ground emesis today. Today he is rating pain level as a 5/10. He is unable to walk or participate in physical therapy. He does find his current medications helpful at reducing his pain. He is anxious to go home. We did discuss briefly the possibility of trying some injections to see if we could help him, but unfortunately we would be unable to do due to elevated white count and potential systemic infection. We could discuss this further with him and see how he does next week in regards to white blood count and overall generalized health. PAST MEDICAL HISTORY: Rheumatoid arthritis, hypertension, gastroesophageal reflux disease. PAST SURGICAL HISTORY: Facial cyst removed. SOCIAL HISTORY: Smokes a pack per day for 50 years. Drinks alcohol, one beer occasionally. REVIEW OF SYSTEMS: 11-point review of systems is negative except for what is described in HPI. PHYSICAL EXAMINATION: Awake, alert, pleasant. No acute distress. Vital signs: 99.7, 80, 16, BP 149/69, O2 sats 94%. Cardiac: S1, S2, normal rate and rhythm. Respiratory: Lung sounds clear. Respirations nonlabored. Inspection of spine: Relatively nontender with palpation. Mild discomfort with palpation over the right buttock. The patient is having severe pain when moving from side to side. DIAGNOSTIC DATA: MRI of the LS spine and right hip are reviewed. ASSESSMENT: 1. Lumbar disc displacement. 2. Lumbar radiculopathy - right. 3. Sacroiliac joint pain. PLAN: I would recommend he be considered for possible injection therapy next week if his medical condition stabilizes. We will revisit this next week. His current medicine seems to be helping a little bit for him although increasing tizanidine dosage may be helpful to a 4 mg three times a day dosing. Thank you for allowing us participate in the care of your patient, Balbir Lizama. Should you have any questions please do not hesitate to contact us. Sincerely, Ashlyn Gomez, Family Nurse Practitioner [facility], [facility]
[2016-08-31] MEDS: PANTOPRAZOLE 40MG INJ (PROTONIX) (C9113) IV SCH (20:23)
[2016-08-31] MEDS: RAMIPRIL 5 MG CAP PO SCH (20:24)
[2016-08-31] MEDS: HYDROXYCHLOROQUINE 200 MG TAB PO SCH (20:24)
[2016-08-31] MEDS: FOLIC ACID 1 MG TAB PO SCH (20:24)
[2016-08-31] MEDS: **NOTE PATIENT COMMENT** MISC XX SCH (20:31)
[2016-08-31] MEDS: ASPIRIN 81 MG ENTERIC TAB PO SCH (20:31)
[2016-08-31 22:00] VITALS: BP 138/72
[2016-09-01 06:00] VITALS: BP 143/67
[2016-09-01 06:13] LABS: MEAN CORPUSCULAR HEMOGLOBIN 30.2 pg (27.0-33.0); MEAN CORPUSCULAR HGB CONC 32.6 g/dl (32.0-36.5); MEAN CORPUSCULAR VOLUME 92.6 fl (80.0-96.0); RED CELL DISTRIBUTION WIDTH 14.3 % (11.5-14.5); WHITE BLOOD COUNT 14.3 K/mm3 (4.0-10.0)
[2016-09-01 06:28] LABS: ANION GAP 10 MEQ/L (8-16); BLOOD UREA NITROGEN 24 MG/DL (7-18); CALCIUM LEVEL 8.2 MG/DL (8.8-10.2); CARBON DIOXIDE LEVEL 25 MEQ/L (21-32); CHLORIDE LEVEL 105 MEQ/L (98-107); CREATININE FOR GFR 1.18 MG/DL (0.70-1.30); GLOMERULAR FILTRATION RATE > 60.0 (>42); GLUCOSE, FASTING 113 MG/DL (83-110); MAGNESIUM LEVEL 2.3 MG/DL (1.8-2.4); POTASSIUM SERUM 4.1 MEQ/L (3.5-5.1); SODIUM LEVEL 140 MEQ/L (136-145)
[2016-09-01] MEDS: HEPARIN SOD (PORCINE) 5000 UNITS/ML VIAL SC SCH (06:30)
[2016-09-01] MEDS: D5W/0.9% SODIUM CHLORIDE 1,000 ML IV SCH ×2 (06:30→20:50)
[2016-09-01] MEDS: PANTOPRAZOLE 40MG INJ (PROTONIX) (C9113) IV SCH ×2 (08:33→19:56)
[2016-09-01] MEDS: NICOTINE 21MG/24HR 1 EA TRANSDERMAL TD SCH (08:33)
[2016-09-01] MEDS: LIDOCAINE 5% (LIDODERM) PATCH TD SCH (08:33)
[2016-09-01] MEDS: SUCRALFATE SUSP 1GM/10ML UD PO SCH ×4 (08:33→19:57)
[2016-09-01] MEDS: tiZANidine 4 MG TAB PO SCH ×3 (08:33→19:56)
[2016-09-01] MEDS: PERCOCET 5MG/325MG TAB PO PRN ×2 (08:34→18:05)
[2016-09-01] MEDS: SENOKOT S TAB PO SCH ×2 (08:34→19:56)
--- NOTE | 2016-09-01 09:42 | IPNPDOC ---
Assessment/Plan Date Seen The patient was seen on 09/01/16. Problems Problems: (1) Bacteremia Status: Acute Problem Text: / bottles positive for gram positive cocci in cultures , patient does not have any metal or plastic in the body will get echo. will get ct abdomen and pelvis and ct chest. will continue with vancomycin. (2) Coffee ground emesis Status: Acute Problem Text: possibly from acute gastritis will hold heparin , monitor hh. continue PPI and sucralfate. ct abdomen and pelvis , if continues will consult GI. (3) Low back pain radiating down leg Status: Acute Problem Text: Has moderate spinal canal stenosis at the l4 l5 level , no nerve compression noted in the MRI of the spine. MRi of the hip shows some muscle edema in the paraspinal region with possible spam will start the patient on lidoderm patch , tizanidine and continue percocet. Pain management following. (4) Rheumatoid arthritis Status: Chronic Problem Text: continue home medications (5) Hypertension Status: Chronic Problem Text: continue home medication (6) GERD (gastroesophageal reflux disease) Status: Chronic Problem Text: continue PPI and sucralfate. Plan / VTE VTE Prophylaxis Ordered?: Yes Subjective Review of Systems CC/HPI The patient is a 76-year-old male admitted with a reason for visit of Leg Weakness. Events since last encounter continues to have severe back pain inability to bear weight on the right leg, blood cultures remain positive , low grade fever , no skin breakdown noted. Had nausea and coffee ground emesis twice yesterday . no drop in hh. complains of persistent hiccoughs and epigastric discomfort which he attributes to his reflux. Objective Physical Examination General Exam: Positive: Alert, No Acute Distress Eye Exam: Positive: Conjunctiva & lids normal, EOMI, PERRLA, Negative: Sclera icteric ENT Exam: Positive: Atraumatic, Mucous membr. moist/pink, Pharynx Normal Neck Exam: Positive: Supple, Negative: JVD, thyromegaly Chest Exam: Positive: Clear to auscultation, Normal air movement Heart Exam: Positive: Normal S1, Normal S2, Rate Normal, Regular Rhythm, Negative: Murmurs, Rubs Abdomen Exam: Positive: Normal bowel sounds, Soft, Negative: Hepatospenomegaly, Tenderness Extremity Exam: Positive: Normal pulses, Negative: Clubbing, Cyanosis, Edema Neuro Exam: Positive: Normal Speech, Other (SLR positive at about 40 degree on the right leg. ), Sensation Intact, Strength at 5/5 X4 ext Vital Signs/I&O Vital Signs Date Time Temp Pulse Resp B/P Pulse Ox O2 Delivery O2 Flow Rate FiO2 09/01/16 09:06 16 09/01/16 06:00 99.4 86 143/67 92 Room Air 08/31/16 10:59 2.0 I&O- Last 24 Hours up to 6 AM 09/01/16 06:00 Intake Total 120 ml Output Total 1050 ml Balance -930 ml Laboratory Data Labs 24H Laboratory Tests 2 09/01/16 04:16: Urine Amorphous Sediment , Urine Appearance HAZY, Urine Color YELLOW, Urine pH 5.0, Urine Specific [place] 1.026, Urine Protein 1+H, Urine Glucose (UA) NEGATIVE, Urine Ketones TRACEH, Urine Urobilinogen 0.2, Urine Bilirubin NEGATIVE , Urine Leukocyte Esterase NEGATIVE, Urine Bacteria (Auto) NEGATIVE, Urine Blood NEGATIVE, Urine Calcium Carbonate Cryst(Auto) , Urine Calcium Oxalate Cryst (Auto) , Urine Calcium Phosphate Gerda (Auto) , Urine Cellular Casts , Urine Cystine Crystals , Urine Granular Casts (Auto) , Urine Hyaline Casts (Auto ) 0, Urine Leucine Crystals , Urine Mucus (Auto) SMALL, Urine Nitrite NEGATIVE, Urine Oval Fat Bodies (Auto) , Urine RBC (Auto) 4H, Urine Renal Epithelial Cells , Urine Sperm (Auto) , Urine Squamous Epithelial Cells 1, Urine Transitional Epithelial Cells , Urine Trichomonas (Auto) , Urine Triple Phosphate Cryst (Auto) , Urine Tyrosine Crystals , Urine Uric Acid Crystals ( Auto) , Urine WBC (Auto) 3, Urine Waxy Casts (Auto) , Urine Yeast-Like Cells ( Auto) 09/01/16 05:53: Anion Gap 10, Blood Urea Nitrogen 24H, Creatinine 1.18, Sodium Level 140, Potassium Level 4.1, Chloride Level 105, Carbon Dioxide Level 25, Calcium Level 8.2L, Glomerular Filtration Rate > 60.0, Magnesium Level 2.3 CBC/BMP Laboratory Tests 09/01/16 05:53 Calcium Level 8.2 L, Red Blood Count 3.67 L, Mean Corpuscular Volume 92.6, Mean Corpuscular Hemoglobin 30.2, Mean Corpuscular Hemoglobin Concent 32.6, Red Cell Distribution Width 14.3 Microbiology Microbiology 08/31/16 Blood Culture - Preliminary, Resulted 08/31/16 Blood Culture - Preliminary, Resulted 08/30/16 Blood Culture - Preliminary, Resulted Staphylococcus Aureus 08/30/16 Blood Culture - Preliminary, Resulted Staphylococcus Aureus 09/01/16 Urine Culture, Received Pending ROSE MARY CASTANON MD Sep 01, 2016 09:42
[2016-09-01] MEDS ORDERED: GASTROGRAFIN SOLUTION 30ML PO ONE (10:30)
[2016-09-01] MEDS ORDERED: GASTROGRAFIN SOLUTION 30ML (Q9963) PO ONE (11:00)
[2016-09-01] MEDS ORDERED: ISOVUE-370 76% 100ML VIAL (Q9967) As Ordered ONE (12:18)
[2016-09-01] MEDS: VANCOMYCIN HCL 750 MG, VIAL MATE ADAPTER 1 EACH in D5W 250 ML IV SCH (13:00)
[2016-09-01 14:00] VITALS: BP 154/68
--- NOTE | 2016-09-01 16:36 | PHACANCOPD ---
PHARMACY VANCOMYCIN DOSING Pt Demographics Demographics Patient Age:76 , Weight:88.500 , Gender: male Adjusted Body Weight Date: 08/31/16, Adjusted Body Weight: [72.2] Kg Vancomycin Vancomycin indication: bacterimia Vancomycin Target Ranges: 15-20 mcg/ml Vancomycin Load Y/N: Yes Load Dose Date Time Vancomycin Load Dose: 1.75g Date: 08/31/16 Time: 11:00 Vancomycin Dose Date: 08/31/16. Current Vancomycin Dose: [750mg q12h] Intermittent Dosing?: No Labs Micro Microbiology 08/31/16 Blood Culture - Preliminary, Resulted Staphylococcus Aureus 08/31/16 Blood Culture - Preliminary, Resulted Staphylococcus Aureus 08/30/16 Blood Culture - Preliminary, Resulted Staphylococcus Aureus 08/30/16 Blood Culture - Preliminary, Resulted Staphylococcus Aureus 09/01/16 Urine Culture, Received Pending Creatinine Clearance Date:08/31/16. Creatinine Clearance: [60.2ml/min]. Pending Labs 08/31/16 blood culture pending Assessment and Plan Maintaining Current Dose?: Yes Reason for dose change: No Dose Change Pharmacist Note Pharmacist Note 09/01/16: Trough rescheduled for 09/02/16 @ 1100, prior to the 5th dose for patient comfort, avoiding late night lab draws. We will follow-up on trough result tomorrow and make dose adjustments as needed. Susceptibility results of blood cultures still pending. Date: 08/31/16. Pharmacist note: Pt is a 76 Y/o male being treated for bacterimia with a target trough of 15-20mcg/ml. Pt does not have a history of vancomycin therapy at [facility]. A loading dose of 1.75g was started at 11, maintenance will be 750mg every 12 hours starting at midnight. A trough was scheduled for 2300 07/02/17 we will continue to monitor and adjust as needed. SON[facility] Sep 01, 2016 16:36
--- NOTE | 2016-09-01 17:29 | EDDOCDS ---
Nurse's Notes [facility] Name: Balbir Lizama Age: 76 yrs Sex: Male : 1940 Arrival Date: 08/30/2016 Time: 07:12 Bed 15 Private MD: Diagnosis: Low back pain Presentation: 08/30 07:17 Presenting complaint: EMS states: patient has had right back pain since Saturday - was kcs doing some re-modeling when it happened feels like a pinch and goes down his leg. Mechanism of Injury: Lifting. Adult Sepsis Screening: Patient has new or worsening altered mentation (1 point). Patient has a respiratory rate of greater than or equal to 22 (1 point). Systolic blood pressure is less than or equal to 100 (1 point). Patient has a qSOFA score of 0- Negative Sepsis Screen. Suicide/Homicide risk assessment- the patient denies having any suicidal and/or homicidal ideations and does not present with any other emotional, behavioral or mental health complaints. Status: Patient is not a learning services coordinator or dependent. Transition of care: patient was not received from another setting of care. Care prior to arrival: See EMS report. 07:17 Acuity: KINA Level 4 kcs 07:17 Method Of Arrival: Ambulance kcs Triage Assessment: 07:31 General: Appears uncomfortable, well developed, well nourished, well groomed, Behavior kcs is cooperative, pleasant. Pain: Location: right low back and down right leg Pain currently is 7 out of 10 on a pain scale. Quality of pain is described as pinching. The patient is triaged at the bedside. See Assessment in Nurses Notes section of ED record. Neurological: Level of Consciousness is awake, alert. Neurological: Moves all extremities. Speech is normal. Respiratory: Airway is patent Respiratory effort is even, unlabored, Respiratory pattern is regular, symmetrical. : Denies inability to void. Derm: Skin is intact, is healthy with good turgor, Skin is dry, Skin is normal. Historical: - Allergies: No known drug Allergies; - Home Meds: 1. Methotrexate (Anti-Rheumatic) 2.5 mg Oral tab once wkly on Saturday 2. ramipril 10 mg Oral cap 1 cap once daily 3. rabeprazole 20 mg oral TbEC 1 tab once daily 4. Lescol XL 80 mg Oral once daily 5. folic acid 1 mg Oral tab 1 tab once daily 6. aspirin 81 mg Oral tab 1 tab once daily 7. hydroxychloroquine 200 mg oral tab 1 tab once daily 8. ferrous sulfate 325 mg (65 mg iron) Oral cpER daily - PMHx: GERD; Hypertension; Arthritis; - PSHx: none; - Social history: Smoking status: Patient uses tobacco products, heavy tobacco smoker. No barriers to communication noted, The patient speaks fluent [place] Islander. - Family history: Not pertinent. - : The pt / caregiver states he / she is not on anticoagulants. Home medication list is obtained from patient list. - Exposure Risk Screening:: None identified. Screenin:11 Screening information is obtained from the patient. Fall risk: At risk due to kcs immobility. Assistance ADL's: requires no assistance with activities of daily living. Abuse/DV Screen: The patient / caregiver reports he/she is: not in a situation that causes fear, pain or injury. Nutritional screening: No deficits noted. Advance Directives: Currently, there is a health care proxy, thinks it is a mold carpenter in [place]. home support is adequate. Assessment: 07:53 Reassessment: Patient with snoring respirations - talking very slowly and softly SaO2 = kcs 88% on RA - 2 liters O2 via NC applied and SaO2 increased to 91% - patient responds to verbal stimuli - provider informed. Call light on rail. Siderails up and at bedside.. General:. 08:08 Reassessment: patient states his pain = 4/10.. kcs 08:35 Reassessment: Patient returned from x-ray via stretcher - states pain = 4/10. Much more kcs alert and talking easily with . SaO2 on 2 liters = 99%.. 09:04 Reassessment: Patient medicated for continued pain in right low back = 4/10. aware we kcs will attempt to walk in about 15 minutes.. 10:30 Reassessment: tank wagon operator attempted to walk patient but he could not even sit without kcs increased low back pain. Provider informed.. 10:51 Reassessment: Patient appears in no apparent distress at this time. reports was made to kr3 move on stretcher in attempt to get up which caused pain 05/14. 11:25 Reassessment: States still with right low back pain - made worse by trying to move kcs around and sitting up. Drinking juice and retaining. Respirations easy. Color = pink. Saline lock intact to LAC. is going home.. 11:56 Reassessment: Patient sleeping. Respirations easy. . kcs 12:33 Reassessment: Patient being evaluated by Dr. Euceda.. kcs 13:21 Reassessment: patient requesting more pain meds for continued low back pain and pain to kcs right leg = 02/11.. 14:04 Reassessment: Patient states no relief of pain - still 03/14. Patient has been to x-ray kcs again and is now going to MRI.. 15:58 Reassessment: Patient returned from MRI - now with fever - medicated and attempting to kcs eat some lunch. States his back pain is down to 01/12.. 16:01 Reassessment: 5 Tremaine Albright) contacted and given patient update with temp and meds..kcs 16:22 Reassessment: Patient appeared more comfortable until repositioned in bed and then back kcs pain got worse again = 03/14. Prior patient had felt improved enough that he thought about sitting on the side of the bed. Did eat half a sandwich and some fruit. is back at bedside. . General: Appears uncomfortable, well developed, well nourished, well groomed, Behavior is cooperative, pleasant. Pain: Location: right low back and down right leg Pain currently is 8 out of 10 on a pain scale. Neurological: Level of Consciousness is awake, alert. Respiratory: Airway is patent Respiratory effort is even, unlabored, Respiratory pattern is regular, symmetrical. Derm: Skin is intact, is healthy with good turgor, Skin is dry, Skin is normal. Vital Signs: 07:21 BP 141 / 67; Pulse 72; Resp 20; Temp 97.4(O); Pulse Ox 93% on R/A; Weight 68.04 kg (R); kcs Height 5 ft. 5 in. (165.10 cm) (R); Pain 7/10; 07:55 BP 156 / 79; Pulse 76; Resp 16; Pulse Ox 91% on 2 lpm NC; kcs 09:03 BP 151 / 78; Pulse 77; Resp 18; Pulse Ox 97% on 2 lpm NC; Pain 4/10; kcs 10:41 dem1 10:51 BP 175 / 76; Pulse 80; Resp 18; Pulse Ox 96% ; Pain 10/10; kr3 11:25 BP 139 / 68; Pulse 75; Resp 18; Pulse Ox 95% on R/A; Pain 6/10; kcs 13:31 BP 165 / 77; Pulse 72; Resp 20; Pulse Ox 92% on 2 lpm NC; Pain 8/10; kcs 13:54 Pain 8/10; kr3 14:11 Temp 99.6(O); kcs 15:51 Temp 101.5(TE); kcs 16:22 BP 133 / 67; Pulse 64; Resp 20; Temp 101.6(TE); Pulse Ox 91% on R/A; Pain 8/10; kcs 07:21 Body Mass Index 24.96 (68.04 kg, 165.10 cm) kcs 10:41 Patient refused to ambulate due to pain dem1 Vitals: 07:21 Log In Time N/A - ambulance arrival. kcs ED Course: 07:13 Patient visited by Dagmar Eubanks, Breeder Hen Service Technician. deg 07:13 Patient moved to Waiting deg 07:13 Patient moved to 15 deg 07:14 Brittani Madrigal MD is Attending Physician. sd1 07:15 Patient visited by Brittani Madrigal MD. sd1 07:20 Triage Initiated kcs 07:30 Inserted saline lock: 20 gauge in left antecubital area The patient tolerated the kcs procedure well. 08:11 Patient visited by Annette Rdz PCA. ct3 09:05 Spine. Lumbosacral, Complete Returned. EDMS 09:35 Patient visited by Annette Rdz PCA. ct3 10:41 Patient visited by Berry Ruiz. dem1 11:12 Jackie Euceda is Hospitalizing Provider. sd1 13:22 Patient visited by Mervat Hercules RN. kcs 14:11 The patient / caregiver is instructed regarding the plan of care and ED course. kcs 14:37 Hip, Ap,Lat Returned. EDMS 16:22 IV is patent, is intact. No procedures done that require assistance. kcs 16:23 MRI Spine, L.S. without con Returned. EDMS 08/31 08:55 T-Sheet-- Draft Copy was scanned into [employer] and attached to record. gb Administered Medications: 08/30 07:22 CANCELLED (Other Intervention Used): morphine 4 mg IVP every 15 minutes; Document pain sd1 score/vitals after each dose (Hold if SBP < 90mmHg) x2 07:51 Drug: ketorolac 15 mg [ketorolac 30 mg/mL (1 mL) injection solution (0.5 mL)] Route: kcs IVP; Site: left antecubital; 07:52 Drug: Ondansetron 4 mg [ondansetron HCl 2 mg/mL intravenous solution (2 mL)] Route: kcs IVP; Site: left antecubital; 07:56 Drug: Diazepam 5 mg [diazepam 5 mg/mL injection syringe (1 mL)] Route: IVP; Site: left kcs antecubital; 09:02 Drug: morphine 2 mg [morphine 2 mg/mL intravenous cartridge (1 mL)] Route: IVP; Site: kcs left antecubital; 10:51 Drug: morphine 2 mg [morphine 2 mg/mL intravenous cartridge (1 mL)] Route: IVP; Site: kr3 left antecubital; 13:25 Drug: morphine 2 mg [morphine 2 mg/mL intravenous cartridge (1 mL)] Route: IVP; Site: kcs left antecubital; 13:54 Follow up: Pain 8/10 Adult; Response: No significant change. kr3 14:10 Drug: oxyCODONE-acetaminophen 1 tabs [oxycodone-acetaminophen 5 mg-325 mg tablet (1 kcs tabs)] Route: PO; 15:58 Drug: Acetaminophen 650 mg [acetaminophen 325 mg tablet (2 tabs)] Route: PO; [facility] Order Results: Lab Order: CBC with Diff; SPEC'M 08/30/16 13:54 Test: WHITE BLOOD COUNT; Value: 13.5; Range: 4.0-10.0; Abnormal: Above high normal; Units: K/mm3; Status: F Test: RED BLOOD COUNT; Value: 4.18; Range: 4.30-6.10; Abnormal: Below low normal; Units: M/mm3; Status: F Test: HEMOGLOBIN; Value: 12.7; Range: 14.0-18.0; Abnormal: Below low normal; Units: g/dl; Status: F Test: HEMATOCRIT; Value: 39.4; Range: 42.0-52.0; Abnormal: Below low normal; Units: %; Status: F Test: MEAN CORPUSCULAR VOLUME; Value: 94.2; Range: 80.0-96.0; Units: fl; Status: F Test: MEAN CORPUSCULAR HEMOGLOBIN; Value: 30.4; Range: 27.0-33.0; Units: pg; Status: F Test: MEAN CORPUSCULAR HGB CONC; Value: 32.3; Range: 32.0-36.5; Units: g/dl; Status: F Test: RED CELL DISTRIBUTION WIDTH; Value: 13.5; Range: 11.5-14.5; Units: %; Status: F Test: PLATELET COUNT, AUTOMATED; Value: 289; Range: 150-450; Units: k/mm3; Status: F Test: NEUTROPHILS %; Value: 75.8; Range: 36.0-66.0; Abnormal: Above high normal; Units: %; Status: F Test: LYMPH %; Value: 10.8; Range: 24.0-44.0; Abnormal: Below low normal; Units: %; Status: F Test: MONO %; Value: 9.7; Range: 0.0-5.0; Abnormal: Above high normal; Units: %; Status: F Test: EOS %; Value: 1.3; Range: 0.0-3.0; Units: %; Status: F Test: BASO %; Value: 0.2; Range: 0.0-1.0; Units: %; Status: F Test: LARGE UNSTAINED CELL %; Value: 2.3; Range: 0.0-4.0; Units: %; Status: F Test: NEUTROPHILS #; Value: 10.2; Range: 1.8-7.7; Abnormal: Above high normal; Units: K/mm3; Status: F Test: LYMPH #; Value: 1.5; Range: 1.5-4.5; Units: K/mm3; Status: F Test: MONO #; Value: 1.3; Range: 0.0-0.8; Abnormal: Above high normal; Units: K/mm3; Status: F Test: EOS #; Value: 0.2; Range: 0.0-0.50; Units: K/mm3; Status: F Test: BASO #; Value: 0.0; Range: 0.0-0.2; Units: K/mm3; Status: F Test: LARGE UNSTAINED CELL #; Value: 0.3; Range: 0.0-0.4; Units: K/mm3; Status: F Lab Order: Sed Rate; SPEC'M 08/30/16 13:54 Test: ERYTHROCYTE SEDIMENTATION RATE; Value: 65; Range: 0-20; Abnormal: Above high normal; Units: mm/hr; Status: F Lab Order: BASIC METABOLIC PROFILE; SPEC'M 08/30/16 13:34 Test: GLUCOSE, FASTING; Value: 107; Range: 83-110; Units: MG/DL; Status: F Test: BLOOD UREA NITROGEN; Value: 25; Range: 7-18; Abnormal: Above high normal; Units: MG/DL; Status: F Test: CREATININE FOR GFR; Value: 1.23; Range: 0.70-1.30; Units: MG/DL; Status: F Test: SODIUM LEVEL; Value: 146; Range: 136-145; Abnormal: Above high normal; Units: MEQ/L; Status: F Test: POTASSIUM SERUM; Value: 4.2; Range: 3.5-5.1; Units: MEQ/L; Status: F Test: CHLORIDE LEVEL; Value: 111; Range: 98-107; Abnormal: Above high normal; Units: MEQ/L; Status: F Test: CARBON DIOXIDE LEVEL; Value: 27; Range: 21-32; Units: MEQ/L; Status: F Test: ANION GAP; Value: 8; Range: 8-16; Units: MEQ/L; Status: F Test: CALCIUM LEVEL; Value: 8.7; Range: 8.8-10.2; Abnormal: Below low normal; Units: MG/DL; Status: F Test: GLOMERULAR FILTRATION RATE; Value: > 60.0; Range: >42; Status: F Test: SODIUM LEVEL; Value: 146; Range: 136-145; Abnormal: Above high normal; Units: MEQ/L; Status: F Test: POTASSIUM SERUM; Value: 4.2; Range: 3.5-5.1; Units: MEQ/L; Status: F Test: CHLORIDE LEVEL; Value: 111; Range: 98-107; Abnormal: Above high normal; Units: MEQ/L; Status: F Test: CARBON DIOXIDE LEVEL; Value: 27; Range: 21-32; Units: MEQ/L; Status: F Test: ANION GAP; Value: 8; Range: 8-16; Units: MEQ/L; Status: F Test: CALCIUM LEVEL; Value: 8.7; Range: 8.8-10.2; Abnormal: Below low normal; Units: MG/DL; Status: F Test Note: ; Units are mL/min/1.73 m2 Chronic Kidney Disease Staging per NKF: Stage I & II GFR >=60 Normal to Mildly Decreased Stage III GFR 30-59 Moderately Decreased Stage IV GFR 15-29 Severely Decreased Stage V GFR <15 Very Little GFR Left ESRD GFR <15 on ASSORTMENT PLANNER Lab Order: MAGNESIUM LEVEL; SPEC'M 08/30/16 13:34 Test: MAGNESIUM LEVEL; Value: 2.3; Range: 1.8-2.4; Units: MG/DL; Status: F Radiology Order: Spine. Lumbosacral, Complete Test: Spine. Lumbosacral, Complete REASON FOR EXAMINATION: pain; Lumbar spine series: Five views.; ; History: Pain.; ; Findings: Five views of the lumbar spine show preserved vertebral body heights; and normal alignment. Degenerative disc disease is seen throughout the lumbar; spine. No fracture or collapse is seen. Pedicles and posterior elements are; intact. There is no evidence of spondylolysis or spondylolisthesis. The; discogenic spurring is only slightly more prominent than on a comparison study of; March 30, 2009. Vascular calcification is noted in a normal caliber aorta.; There is a mild levoconvex curvature unchanged from the comparison study. Mild; facet hypertrophy is noted at L4-5 and L5-S1 bilaterally. Sacrum and SI joints; are intact. Psoas margins are symmetric. There are healed fractures visible on; the right at T11 and T10 ribs proximally. These were not visible in 2008.; ; Impression:; ; Degenerative disc disease diffusely. Mild facet hypertrophy. Changes slightly; more prominent than on the 2008 prior study. No acute bony abnormality. Old; healed rib fractures noted on the right at T11 and T10.; ; ; Signed by; Evert Romano MD 08/30/2016 09:24 A; Radiology Order: Hip, Ap,Lat Test: Hip, Ap,Lat REASON FOR EXAMINATION: pain; Right hip series: Two views.; ; History: Pain.; ; Findings: AP and frog-leg views of the right hip are compared with the prior; study from April 15, 2012. There is femoral acetabular spurring consistent; with osteoarthritis. This is radiographically unchanged from the 2012 prior; study. No erosive change is seen. Periarticular soft tissues are unremarkable.; ; Impression:; ; Right hip osteoarthritis. No fracture seen. No acute bony abnormality.; ; ; Signed by; Evert Romano MD 08/30/2016 03:00 P; Radiology Order: MRI Spine, L.S. without con Test: MRI Spine, L.S. without con REASON FOR EXAMINATION: back pain; MRI LUMBAR SPINE WITHOUT CONTRAST:; ; HISTORY: Back pain.; ; Decreased signal intensity on T2-weighted images is present in the lumbar; intervertebral discs. The L2-3 through L5-S1 intervertebral discs are decreased; in height. These findings are consistent with disc degeneration.; ; There is no disc bulge or herniation at the L1-2 level. The L1 nerves exit the; neural foramina without compression.; ; A diffuse disc bulge is present at the L2-3 level. There is hypertrophy of the; ligamenta flava and posterior articulating facets. These findings produce mild; central canal stenosis. The L2 nerves exit the neural foramina without; compression.; ; A diffuse disc bulge is present at the L3-4 level. There is hypertrophy of the; ligamenta flava and posterior articulating facets. These findings produce mild; central canal stenosis. The L3 nerves exit the neural foramina without; compression.; ; A diffuse disc bulge is present at the L4-5 level. There is hypertrophy of the; ligamenta flava and posterior articulating facets. There are 3 mm of grade 1; spondylolisthesis of L4 on L5. These findings produce moderate central canal; stenosis. The L4 nerves exit the neural foramina without compression. Fluid is; present in the L4-5 facet joints.; ; A diffuse disc bulge is present at the L5-S1 level. There is no thecal sac; compression. There is hypertrophy of the posterior articulating facets. The L5; nerves exit the neural foramina without compression.; ; The conus medullaris is normal in appearance terminating at the level of the; T12-L1 intervertebral disc. Normal signal intensity is present in the lumbar; vertebral bodies. A 4.9 cm cyst is present in the left kidney.; ; IMPRESSION:; ; 1. Minimal central canal stenosis at the L2-3 and L3-4 levels secondary to disc; bulge, ligamentous and facet hypertrophy.; ; 2. Moderate central canal stenosis at the L4-5 level secondary to disc bulge,; ligamentous and facet hypertrophy and grade 1 spondylolisthesis.; ; 3. Diffuse disc bulge at the L5-S1 level without thecal sac or nerve; compression.; ; ; 4. 4.9 cm left renal cyst. Ultrasound may be helpful for further evaluation.; ; ; Signed by; Brennen Monzon MD 08/30/2016 04:10 P; Outcome: 11:12 Decision to Hospitalize by Provider. sd1 14:20 Admission hand-off: Report Faxed. kcs 16:22 Discharge Assessment: Patient awake, alert and oriented x 3. No cognitive and/or kcs functional deficits noted. Patient verbalized understanding of disposition instructions. Patient awake and alert. patient administered narcotics - yes. Patient was admitted to the hospital or transferred to another facility. The following High Risk Discharge criteria are identified: None. Admitted to Med/Surg accompanied by tech, via stretcher, with chart. Condition: stable. MRI Study completed. Property :Personal belongings accompany Pt. 16:28 Patient left the ED. kcs Signatures: Dispatcher [employer] EDBrittani Ortega MD MD sd1 Mervat Hercules, RN RN kcs Dagmar Eubanks, Breeder Hen Service Technician Unit deg Jaci Manzano, Reg Reg Anne Marie JaureguiRN RN kurt3 Annette Rdz, AREA OPERATIONS DIRECTOR AREA OPERATIONS DIRECTOR ct3 Berry Ruiz1 Corrections: (The following items were deleted from the chart) 16:02 16:01 Reassessment: 5 Penaloza contacted and given patient update with temp and meds.. david hernandez Chart Complete MTDD
--- NOTE | 2016-09-01 17:29 | EDDOCDS ---
Physician Documentation [facility] Name: Balbir Lizama Age: 76 yrs Sex: Male : 1940 Arrival Date: 08/30/2016 Time: 07:12 Bed 15 Private MD: Disposition: 08/30/16 11:12 Hospitalization ordered by Jackie Euceda for Inpatient Admission. Preliminary diagnosis is Low back pain. - Bed requested for 5 Penaloza. - Status is Inpatient Admission. kcs - Condition is Stable. - Problem is new. - Symptoms are unchanged. Historical: - Allergies: No known drug Allergies; - Home Meds: 1. Methotrexate (Anti-Rheumatic) 2.5 mg Oral tab once wkly on Saturday 2. ramipril 10 mg Oral cap 1 cap once daily 3. rabeprazole 20 mg oral TbEC 1 tab once daily 4. Lescol XL 80 mg Oral once daily 5. folic acid 1 mg Oral tab 1 tab once daily 6. aspirin 81 mg Oral tab 1 tab once daily 7. hydroxychloroquine 200 mg oral tab 1 tab once daily 8. ferrous sulfate 325 mg (65 mg iron) Oral cpER daily - PMHx: GERD; Hypertension; Arthritis; - PSHx: none; - Social history: Smoking status: Patient uses tobacco products, heavy tobacco smoker. No barriers to communication noted, The patient speaks fluent [place]. - Family history: Not pertinent. - : The pt / caregiver states he / she is not on anticoagulants. Home medication list is obtained from patient list. - Exposure Risk Screening:: None identified. Vital Signs: 08/30 07:21 BP 141 / 67; Pulse 72; Resp 20; Temp 97.4(O); Pulse Ox 93% on R/A; Weight 68.04 kg / kcs 150 lbs (R); Height 5 ft. 5 in. (165.10 cm) (R); Pain 7/10; 07:55 BP 156 / 79; Pulse 76; Resp 16; Pulse Ox 91% on 2 lpm NC; kcs 09:03 BP 151 / 78; Pulse 77; Resp 18; Pulse Ox 97% on 2 lpm NC; Pain 4/10; kcs 10:41 dem1 10:51 BP 175 / 76; Pulse 80; Resp 18; Pulse Ox 96% ; Pain 10/10; kr3 11:25 BP 139 / 68; Pulse 75; Resp 18; Pulse Ox 95% on R/A; Pain 6/10; kcs 13:31 BP 165 / 77; Pulse 72; Resp 20; Pulse Ox 92% on 2 lpm NC; Pain 8/10; kcs 13:54 Pain 8/10; kr3 14:11 Temp 99.6(O); kcs 15:51 Temp 101.5(TE); kcs 16:22 BP 133 / 67; Pulse 64; Resp 20; Temp 101.6(TE); Pulse Ox 91% on R/A; Pain 8/10; kcs 07:21 Body Mass Index 24.96 (68.04 kg, 165.10 cm) kcs 10:41 Patient refused to ambulate due to pain dem1 MDM: 07:20 IV Saline Lock ordered. sd1 07:20 ketorolac 15 mg IVP once ordered. sd1 07:21 Ondansetron 4 mg IVP once ordered. sd1 07:21 Spine. Lumbosacral, Complete Ordered. EDMS 07:22 Diazepam 5 mg IVP once ordered. sd1 08:41 Financial registration complete. jp5 08:49 Misc. Nursing Order ordered. sd1 08:55 morphine 2 mg IVP every 15 minutes; Document pain score/vitals after each dose (Hold if sd1 SBP < 90mmHg) x3 ordered. 10:59 BED REQUEST+ADM ordered. EDMS 11:00 CBC with Diff Ordered. EDMS 11:00 Sed Rate Ordered. EDMS 13:15 PHYSICAL THERAPY EVAL & TREAT ordered. EDMS 13:15 Hip, Ap,Lat Ordered. EDMS 13:22 Admission / Observation Status ordered. EDMS 13:22 REGULAR DIET ordered. EDMS 13:23 BASIC METABOLIC PROFILE Ordered. EDMS 13:23 MAGNESIUM LEVEL Ordered. EDMS 13:24 MRI Spine, L.S. without con Ordered. EDMS 13:24 MRI-Hip WITHOUT CONTRAST Ordered. EDMS 14:06 oxyCODONE-acetaminophen 5 mg-325 mg 1 tabs PO once ordered. kcs 14:37 URINALYSIS Ordered. EDMS 14:37 BLOOD CULTURES Ordered. EDMS 14:37 BLOOD CULTURES Ordered. EDMS 14:37 URINE CULTURE Ordered. EDMS 15:52 Acetaminophen Tablet 650 mg PO once ordered. kcs 08/31 08:55 T-Sheet-- Draft Copy was scanned into [employer] and attached to record. gb Administered Medications: 08/30 07:22 CANCELLED (Other Intervention Used): morphine 4 mg IVP every 15 minutes; Document pain sd1 score/vitals after each dose (Hold if SBP < 90mmHg) x2 07:51 Drug: ketorolac 15 mg [ketorolac 30 mg/mL (1 mL) injection solution (0.5 mL)] Route: [facility] IVP; Site: left antecubital; 07:52 Drug: Ondansetron 4 mg [ondansetron HCl 2 mg/mL intravenous solution (2 mL)] Route: kcs IVP; Site: left antecubital; 07:56 Drug: Diazepam 5 mg [diazepam 5 mg/mL injection syringe (1 mL)] Route: IVP; Site: left kcs antecubital; 09:02 Drug: morphine 2 mg [morphine 2 mg/mL intravenous cartridge (1 mL)] Route: IVP; Site: [facility] left antecubital; 10:51 Drug: morphine 2 mg [morphine 2 mg/mL intravenous cartridge (1 mL)] Route: IVP; Site: kr3 left antecubital; 13:25 Drug: morphine 2 mg [morphine 2 mg/mL intravenous cartridge (1 mL)] Route: IVP; Site: [facility] left antecubital; 13:54 Follow up: Pain 8/10 Adult; Response: No significant change. kr3 14:10 Drug: oxyCODONE-acetaminophen 1 tabs [oxycodone-acetaminophen 5 mg-325 mg tablet (1 kcs tabs)] Route: PO; 15:58 Drug: Acetaminophen 650 mg [acetaminophen 325 mg tablet (2 tabs)] Route: PO; [facility] Signatures: Dispatcher [employer] EDMS Brittani Madrigal MD MD sd1 Mervat Hercules RN RN kcs Jaci Manzano, Reg Reg gb Robbin Sheppard, JEWEL DIAMETER GAUGER JEWEL DIAMETER GAUGER d Sarah Woods jp5 Serg Pandey RN RN sa Robie, Kathleen RN kr3 The chart was reviewed and I authenticate all verbal orders and agree with the evaluation and treatment provided.Corrections: (The following items were deleted from the chart) 07:22 07:21 morphine 4 mg IVP every 15 minutes; Document pain score/vitals after each dose sd1 (Hold if SBP < 90mmHg) x2 ordered. sd1 : 13:14 MRI Spine, L.S. with con ordered. EDMS EDMS 13:14 MRI HIP WITH CONTRAST ordered. EDMS EDMS 13:42 11:00 BASIC METABOLIC PROFILE+LAB ordered. EDMS EDMS Attachments: 08/31 08:55 T-Sheet-- Draft Copy gb Chart Complete MTDD
--- NOTE | 2016-09-01 17:29 | EDDOCDS ---
Physician Documentation [facility] Name: Balbir Lizama Age: 76 yrs Sex: Male : 1940 Arrival Date: 08/30/2016 Time: 07:12 Bed 15 Private MD: Disposition: 08/30/16 11:12 Hospitalization ordered by Jackie Euceda for Inpatient Admission. Preliminary diagnosis is Low back pain. - Bed requested for 5 Pen[place]. - Status is Inpatient Admission. kcs - Condition is Stable. - Problem is new. - Symptoms are unchanged. Historical: - Allergies: No known drug Allergies; - Home Meds: 1. Methotrexate (Anti-Rheumatic) 2.5 mg Oral tab once wkly on Saturday 2. ramipril 10 mg Oral cap 1 cap once daily 3. rabeprazole 20 mg oral TbEC 1 tab once daily 4. Lescol XL 80 mg Oral once daily 5. folic acid 1 mg Oral tab 1 tab once daily 6. aspirin 81 mg Oral tab 1 tab once daily 7. hydroxychloroquine 200 mg oral tab 1 tab once daily 8. ferrous sulfate 325 mg (65 mg iron) Oral cpER daily - PMHx: GERD; Hypertension; Arthritis; - PSHx: none; - Social history: Smoking status: Patient uses tobacco products, heavy tobacco smoker. No barriers to communication noted, The patient speaks fluent Yemeni. - Family history: Not pertinent. - : The pt / caregiver states he / she is not on anticoagulants. Home medication list is obtained from patient list. - Exposure Risk Screening:: None identified. Vital Signs: 08/30 07:21 BP 141 / 67; Pulse 72; Resp 20; Temp 97.4(O); Pulse Ox 93% on R/A; Weight 68.04 kg / kcs 150 lbs (R); Height 5 ft. 5 in. (165.10 cm) (R); Pain 7/10; 07:55 BP 156 / 79; Pulse 76; Resp 16; Pulse Ox 91% on 2 lpm NC; kcs 09:03 BP 151 / 78; Pulse 77; Resp 18; Pulse Ox 97% on 2 lpm NC; Pain 4/10; kcs 10:41 dem1 10:51 BP 175 / 76; Pulse 80; Resp 18; Pulse Ox 96% ; Pain 10/10; kr3 11:25 BP 139 / 68; Pulse 75; Resp 18; Pulse Ox 95% on R/A; Pain 6/10; kcs 13:31 BP 165 / 77; Pulse 72; Resp 20; Pulse Ox 92% on 2 lpm NC; Pain 8/10; kcs 13:54 Pain 8/10; kr3 14:11 Temp 99.6(O); kcs 15:51 Temp 101.5(TE); kcs 16:22 BP 133 / 67; Pulse 64; Resp 20; Temp 101.6(TE); Pulse Ox 91% on R/A; Pain 8/10; kcs 07:21 Body Mass Index 24.96 (68.04 kg, 165.10 cm) kcs 10:41 Patient refused to ambulate due to pain dem1 MDM: 07:20 IV Saline Lock ordered. sd1 07:20 ketorolac 15 mg IVP once ordered. sd1 07:21 Ondansetron 4 mg IVP once ordered. sd1 07:21 Spine. Lumbosacral, Complete Ordered. EDMS 07:22 Diazepam 5 mg IVP once ordered. sd1 08:41 Financial registration complete. jp5 08:49 Misc. Nursing Order ordered. sd1 08:55 morphine 2 mg IVP every 15 minutes; Document pain score/vitals after each dose (Hold if sd1 SBP < 90mmHg) x3 ordered. 10:59 BED REQUEST+ADM ordered. EDMS 11:00 CBC with Diff Ordered. EDMS 11:00 Sed Rate Ordered. EDMS 13:15 PHYSICAL THERAPY EVAL & TREAT ordered. EDMS 13:15 Hip, Ap,Lat Ordered. EDMS 13:22 Admission / Observation Status ordered. EDMS 13:22 REGULAR DIET ordered. EDMS 13:23 BASIC METABOLIC PROFILE Ordered. EDMS 13:23 MAGNESIUM LEVEL Ordered. EDMS 13:24 MRI Spine, L.S. without con Ordered. EDMS 13:24 MRI-Hip WITHOUT CONTRAST Ordered. EDMS 14:06 oxyCODONE-acetaminophen 5 mg-325 mg 1 tabs PO once ordered. kcs 14:37 URINALYSIS Ordered. EDMS 14:37 BLOOD CULTURES Ordered. EDMS 14:37 BLOOD CULTURES Ordered. EDMS 14:37 URINE CULTURE Ordered. EDMS 15:52 Acetaminophen Tablet 650 mg PO once ordered. kcs 08/31 08:55 T-Sheet-- Draft Copy was scanned into MEDHOST and attached to record. gb Administered Medications: 08/30 07:22 CANCELLED (Other Intervention Used): morphine 4 mg IVP every 15 minutes; Document pain sd1 score/vitals after each dose (Hold if SBP < 90mmHg) x2 07:51 Drug: ketorolac 15 mg [ketorolac 30 mg/mL (1 mL) injection solution (0.5 mL)] Route: [facility] IVP; Site: left antecubital; 07:52 Drug: Ondansetron 4 mg [ondansetron HCl 2 mg/mL intravenous solution (2 mL)] Route: kcs IVP; Site: left antecubital; 07:56 Drug: Diazepam 5 mg [diazepam 5 mg/mL injection syringe (1 mL)] Route: IVP; Site: left kcs antecubital; 09:02 Drug: morphine 2 mg [morphine 2 mg/mL intravenous cartridge (1 mL)] Route: IVP; Site: [facility] left antecubital; 10:51 Drug: morphine 2 mg [morphine 2 mg/mL intravenous cartridge (1 mL)] Route: IVP; Site: kr3 left antecubital; 13:25 Drug: morphine 2 mg [morphine 2 mg/mL intravenous cartridge (1 mL)] Route: IVP; Site: [facility] left antecubital; 13:54 Follow up: Pain 8/10 Adult; Response: No significant change. kr3 14:10 Drug: oxyCODONE-acetaminophen 1 tabs [oxycodone-acetaminophen 5 mg-325 mg tablet (1 kcs tabs)] Route: PO; 15:58 Drug: Acetaminophen 650 mg [acetaminophen 325 mg tablet (2 tabs)] Route: PO; [facility] Signatures: Dispatcher [employer] EDMS Brittani Madrigal MD MD sd1 Mervat Hercules RN RN kcs Jaci Manzano, Reg Reg gb Robbin Sheppard, CHARGEMASTER ANALYST CHARGEMASTER ANALYST d Sarah Woods jp5 Serg Pandey RN RN sa Robie, Kathleen RN kr3 The chart was reviewed and I authenticate all verbal orders and agree with the evaluation and treatment provided.Corrections: (The following items were deleted from the chart) 07:22 07:21 morphine 4 mg IVP every 15 minutes; Document pain score/vitals after each dose sd1 (Hold if SBP < 90mmHg) x2 ordered. sd1 : 13:14 MRI Spine, L.S. with con ordered. EDMS EDMS 13:14 MRI HIP WITH CONTRAST ordered. EDMS EDMS 13:42 11:00 BASIC METABOLIC PROFILE+LAB ordered. EDMS EDMS Attachments: 08/31 08:55 T-Sheet-- Draft Copy gb Chart Complete MTDD
[2016-09-01] MEDS: FOLIC ACID 1 MG TAB PO SCH (19:56)
[2016-09-01] MEDS: ASPIRIN 81 MG ENTERIC TAB PO SCH (19:56)
[2016-09-01] MEDS: HYDROXYCHLOROQUINE 200 MG TAB PO SCH (19:57)
[2016-09-01] MEDS: RAMIPRIL 5 MG CAP PO SCH (19:57)
[2016-09-01] MEDS: **NOTE PATIENT COMMENT** MISC XX SCH (20:02)
[2016-09-01 22:00] VITALS: BP 129/76
[2016-09-02] MEDS: VANCOMYCIN HCL 750 MG, VIAL MATE ADAPTER 1 EACH in D5W 250 ML IV SCH (00:14)
--- NOTE | 2016-09-02 00:57 | ECGEPIP ---
Stationary ECG Study [facility] Test Date: 2016-09-01 Pat Name: EMMANUEL TRUJILLO Department: Room: [place] [address] Gender: M Neck Band Operator: DAGOBERTO : 1940 Requested By: ROSE MARY CASTANON Order Number: [id number] Reading MD: Bob Steel Measurements Intervals [place] Rate: 82 P: 48 MT: 163 QRS: -16 QRSD: 105 T: 31 QT: 369 QTc: 433 Interpretive Statements SINUS RHYTHM POSSIBLE INFERIOR MYOCARDIAL INFARCTION, PROBABLY OLD No prior tracing in the system Electronically Signed On 09-02-2016 0:57:44 EST by Bob Steel
[2016-09-02] MEDS: PERCOCET 5MG/325MG TAB PO PRN ×4 (04:45→20:39)
[2016-09-02 06:00] VITALS: BP 157/73
[2016-09-02 06:06] LABS: MEAN CORPUSCULAR HEMOGLOBIN 29.8 pg (27.0-33.0); MEAN CORPUSCULAR HGB CONC 32.9 g/dl (32.0-36.5); MEAN CORPUSCULAR VOLUME 90.5 fl (80.0-96.0); RED CELL DISTRIBUTION WIDTH 14.3 % (11.5-14.5); WHITE BLOOD COUNT 11.4 K/mm3 (4.0-10.0)
[2016-09-02 06:23] LABS: ANION GAP 9 MEQ/L (8-16); BLOOD UREA NITROGEN 22 MG/DL (7-18); CALCIUM LEVEL 7.9 MG/DL (8.8-10.2); CARBON DIOXIDE LEVEL 23 MEQ/L (21-32); CHLORIDE LEVEL 106 MEQ/L (98-107); CREATININE FOR GFR 1.16 MG/DL (0.70-1.30); GLOMERULAR FILTRATION RATE > 60.0 (>42); GLUCOSE, FASTING 118 MG/DL (83-110); MAGNESIUM LEVEL 2.4 MG/DL (1.8-2.4); POTASSIUM SERUM 3.5 MEQ/L (3.5-5.1); SODIUM LEVEL 138 MEQ/L (136-145)
[2016-09-02] MEDS: SENOKOT S TAB PO SCH ×2 (08:43→21:44)
[2016-09-02] MEDS: PANTOPRAZOLE 40MG INJ (PROTONIX) (C9113) IV SCH ×2 (08:43→21:43)
[2016-09-02] MEDS: LIDOCAINE 5% (LIDODERM) PATCH TD SCH (08:43)
[2016-09-02] MEDS: SUCRALFATE SUSP 1GM/10ML UD PO SCH ×4 (08:43→21:42)
[2016-09-02] MEDS: NICOTINE 21MG/24HR 1 EA TRANSDERMAL TD SCH (08:43)
[2016-09-02] MEDS: tiZANidine 4 MG TAB PO SCH ×3 (08:43→21:44)
[2016-09-02] MEDS: NAFCILLIN SOD 2 GM in D5W MINI-BAG PLUS 100 ML IV SCH ×3 (10:39→21:43)
--- NOTE | 2016-09-02 11:36 | IPNPDOC ---
Assessment/Plan Date Seen The patient was seen on 09/02/16. Problems Problems: (1) Sepsis Status: Acute Problem Text: source unidentified till now. Has MSSA in blood will continue with nafcillin awaiting echo , ct abdomen , pelvis and chest report. (2) Bacteremia Status: Acute Problem Text: / bottles positive for MSSA, Antibiotic changed to nafcillin. patient does not have any metal or plastic in the body will get echo. will get ct abdomen and pelvis and ct chest done. (3) Coffee ground emesis Status: Acute Problem Text: possibly from acute gastritis will hold heparin , monitor hh. continue PPI and sucralfate. ct abdomen and pelvis , if continues will consult GI. (4) Low back pain radiating down leg Status: Acute Problem Text: Has moderate spinal canal stenosis at the l4 l5 level , no nerve compression noted in the MRI of the spine. MRi of the hip shows some muscle edema in the paraspinal region with possible spam will start the patient on lidoderm patch , tizanidine and continue percocet. Pain management following. (5) Rheumatoid arthritis Status: Chronic Problem Text: continue home medications (6) Hypertension Status: Chronic Problem Text: continue home medication (7) GERD (gastroesophageal reflux disease) Status: Chronic Problem Text: continue PPI and sucralfate. Plan / VTE VTE Prophylaxis Ordered?: Yes Subjective Review of Systems CC/HPI The patient is a 76-year-old male admitted with a reason for visit of Leg Weakness. Events since last encounter febrile overnight with tmax of 101.4, no further coffee ground emesis, though continues to have the hiccoughs. Blood culture positive for MSSA. still unable to bear weight on the right leg and moving it makes it very painful Objective Physical Examination General Exam: Positive: Alert, No Acute Distress Eye Exam: Positive: Conjunctiva & lids normal, EOMI, PERRLA, Negative: Sclera icteric ENT Exam: Positive: Atraumatic, Mucous membr. moist/pink, Pharynx Normal Neck Exam: Positive: Supple, Negative: JVD, thyromegaly Chest Exam: Positive: Clear to auscultation, Normal air movement Heart Exam: Positive: Normal S1, Normal S2, Rate Normal, Regular Rhythm, Negative: Murmurs, Rubs Abdomen Exam: Positive: Normal bowel sounds, Soft, Negative: Hepatospenomegaly, Tenderness Extremity Exam: Positive: Normal pulses, Negative: Clubbing, Cyanosis, Edema Neuro Exam: Positive: Normal Speech, Other (SLR positive at about 40 degree on the right leg. ), Sensation Intact, Strength at 5/5 X4 ext Vital Signs/I&O Vital Signs Date Time Temp Pulse Resp B/P Pulse Ox O2 Delivery O2 Flow Rate FiO2 09/02/16 10:49 18 09/02/16 06:00 99.8 82 157/73 95 Room Air 08/31/16 10:59 2.0 I&O- Last 24 Hours up to 6 AM 09/02/16 06:00 Intake Total 3205 ml Output Total 1400 ml Balance 1805 ml Laboratory Data Labs 24H Laboratory Tests 2 09/02/16 05:44: Anion Gap 9, Blood Urea Nitrogen 22H, Creatinine 1.16, Sodium Level 138, Potassium Level 3.5, Chloride Level 106, Carbon Dioxide Level 23, Calcium Level 7.9L, Glomerular Filtration Rate > 60.0, Magnesium Level 2.4 CBC/BMP Laboratory Tests 09/02/16 05:44 Calcium Level 7.9 L, Red Blood Count 3.32 L, Mean Corpuscular Volume 90.5, Mean Corpuscular Hemoglobin 29.8, Mean Corpuscular Hemoglobin Concent 32.9, Red Cell Distribution Width 14.3 Microbiology Microbiology 08/31/16 Blood Culture - Final, Complete Staphylococcus Aureus 08/31/16 Blood Culture - Final, Complete Staphylococcus Aureus 08/30/16 Blood Culture - Final, Complete Staphylococcus Aureus 08/30/16 Blood Culture - Final, Complete Staphylococcus Aureus 09/01/16 Urine Culture, Received Pending ROSE MARY CASTANON MD Sep 02, 2016 11:36
[2016-09-02 14:00] VITALS: BP 152/70
[2016-09-02] MEDS: **NOTE PATIENT COMMENT** MISC XX SCH (21:00)
[2016-09-02] MEDS: ACETAMINOPHEN TAB 650MG DOSE (2X325MG) PO PRN (21:35)
[2016-09-02] MEDS: RAMIPRIL 5 MG CAP PO SCH (21:43)
[2016-09-02] MEDS: FOLIC ACID 1 MG TAB PO SCH (21:44)
[2016-09-02] MEDS: ASPIRIN 81 MG ENTERIC TAB PO SCH (21:44)
[2016-09-02] MEDS: HYDROXYCHLOROQUINE 200 MG TAB PO SCH (21:44)
[2016-09-02 22:00] VITALS: BP 164/75
[2016-09-02] MEDS: diphenhydrAMINE 25 MG CAP PO PRN (22:18)
[2016-09-03] MEDS: NAFCILLIN SOD 2 GM in D5W MINI-BAG PLUS 100 ML IV SCH ×5 (03:26→23:06)
[2016-09-03 06:00] VITALS: BP 163/78
[2016-09-03 06:38] LABS: MEAN CORPUSCULAR HEMOGLOBIN 29.9 pg (27.0-33.0); MEAN CORPUSCULAR HGB CONC 33.1 g/dl (32.0-36.5); MEAN CORPUSCULAR VOLUME 90.1 fl (80.0-96.0); RED CELL DISTRIBUTION WIDTH 14.5 % (11.5-14.5); WHITE BLOOD COUNT 9.6 K/mm3 (4.0-10.0)
[2016-09-03 06:48] LABS: ANION GAP 10 MEQ/L (8-16); BLOOD UREA NITROGEN 21 MG/DL (7-18); CALCIUM LEVEL 7.9 MG/DL (8.8-10.2); CARBON DIOXIDE LEVEL 24 MEQ/L (21-32); CHLORIDE LEVEL 105 MEQ/L (98-107); CREATININE FOR GFR 1.21 MG/DL (0.70-1.30); GLOMERULAR FILTRATION RATE > 60.0 (>42); GLUCOSE, FASTING 96 MG/DL (83-110); MAGNESIUM LEVEL 2.4 MG/DL (1.8-2.4); POTASSIUM SERUM 3.3 MEQ/L (3.5-5.1); SODIUM LEVEL 139 MEQ/L (136-145)
[2016-09-03] MEDS ORDERED: POTASSIUM CHLORIDE 10 MEQ SR TABLET PO ONE (07:30)
[2016-09-03] MEDS: SUCRALFATE SUSP 1GM/10ML UD PO SCH ×4 (08:18→20:58)
[2016-09-03] MEDS: PANTOPRAZOLE 40MG INJ (PROTONIX) (C9113) IV SCH ×2 (08:18→21:03)
[2016-09-03] MEDS: NICOTINE 21MG/24HR 1 EA TRANSDERMAL TD SCH (08:19)
[2016-09-03] MEDS: SENOKOT S TAB PO SCH ×2 (08:19→20:59)
[2016-09-03] MEDS: LIDOCAINE 5% (LIDODERM) PATCH TD SCH (08:19)
[2016-09-03] MEDS: tiZANidine 4 MG TAB PO SCH ×3 (08:19→21:01)
[2016-09-03] MEDS ORDERED: LIDOCAINE VISCOUS 2% SOLN 15ML UDC SS PRN (10:45)
--- NOTE | 2016-09-03 11:02 | REP ---
CT abdomen pelvis: This is performed in conjunction with the CT of the chest utilizing the same intravenous contrast bolus. Scanning is performed from the diaphragms to the pubic symphysis. There are no comparisons. The hepatic parenchyma is unremarkable. There is a small 5 mm polyps versus adherent calculus along the anterior wall of the gallbladder. The gallbladder is otherwise unremarkable. The pancreas and spleen are unremarkable. There is no biliary duct dilatation. The adrenals are unremarkable. There are bilateral renal cortical cysts. There are parapelvic renal cysts on the left. There are no renal calculi. There are no ureteral calculi. There is no hydronephrosis. No perinephric stranding. The largest renal cortical cyst on the left is at the lower pole measuring 4.8 cm. The largest renal cortical cyst on the right is at the mid pole measuring 4.6 cm. The abdominal aorta is unremarkable except for calcified atheroma. There is no retroperitoneal adenopathy. There is no bowel distension. Pelvis: The appendix is not identified as a discrete structure, however there is no pericecal inflammation. There is no ascites or adenopathy. Bladder is unremarkable. There is diverticulosis in the proximal sigmoid colon without diverticulitis. Impression: No ascites or adenopathy. Diverticulosis without diverticulitis. Multiple renal cysts. No hydronephrosis or calculus. Polyps versus adherent calculus in the anterior wall of the gallbladder. No biliary duct dilatation. No bowel distension or obstruction. Signed by Boyd Hewitt MD 09/01/2016 01:23 P
--- NOTE | 2016-09-03 11:02 | REP ---
CT of the chest with IV contrast: Comparison is 09/04/2008. There is a right lower lobe infiltrate. There is a small left lower lobe infiltrate. There are no pleural effusions. There are no masses or nodules. There are multiple small bulla throughout the lung levy. There are multiple normal-sized mediastinal nodes, not significantly changed. There is there is right hilar lymph node enlargement, unchanged from the prior study. Left hilus is unremarkable. Thoracic aorta is unremarkable. Cardiac size normal. There is no pericardial effusion. Impression: Bilateral lower lobe infiltrates. The infiltrate on the right is larger. Chronic in the enlarged right hilar nodes measuring up to 13 mm, unchanged. Chronic nonenlarged mediastinal nodes. Signed by Boyd Hewitt MD 09/01/2016 01:18 P
[2016-09-03] MEDS: PERCOCET 5MG/325MG TAB PO PRN (11:50)
[2016-09-03] MEDS ORDERED: cefTRIAXone SOD 1 GM in D5W MINI-BAG PLUS 50 ML IV SCH ×4 (12:00)
--- NOTE | 2016-09-03 12:20 | IPNPDOC ---
Assessment/Plan Date Seen The patient was seen on 09/03/16. Problems Problems: (1) Urine culture positive Status: Acute Problem Text: patient does not have any pyuria [place] [id number], no urinary symptoms so colonisation and will not treat. (2) Sepsis Status: Acute Problem Text: source unidentified till now. Has MSSA in blood will continue with nafcillin awaiting echo , ct abdomen , pelvis and chest done consulted ID repeat blood cultures today and daily (3) Bacteremia Status: Acute Problem Text: / bottles positive for MSSA, Antibiotic changed to nafcillin. patient does not have any metal or plastic in the body will get echo. ct abdomen and pelvis and ct chest done no collection / abscess or pneumonia, has some bilateral sub segmental atelectasis. CT scans reviewed with Dr Romano. will order US of the paraspinal muscle in the site of edema to look for collection. (4) Coffee ground emesis Status: Resolved Problem Text: possibly from acute gastritis will hold heparin , monitor hh. continue PPI and sucralfate. ct abdomen and pelvis , if continues will consult GI. (5) Low back pain radiating down leg Status: Acute Problem Text: Has moderate spinal canal stenosis at the l4 l5 level , no nerve compression noted in the MRI of the spine. MRi of the hip shows some muscle edema in the paraspinal region with possible spam will start the patient on lidoderm patch , tizanidine and continue percocet. Pain management following. (6) Rheumatoid arthritis Status: Chronic Problem Text: continue home medications (7) Hypertension Status: Chronic Problem Text: continue home medication (8) GERD (gastroesophageal reflux disease) Status: Chronic Problem Text: Has persistent hiccoughs will start lidocaine viscus. continue PPI and sucralfate. 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 Events since last encounter patient continues to have hiccoughs and low grade fever, persistent hip and buttock pain and unable to bear weight. Objective Physical Examination General Exam: Positive: Alert, No Acute Distress Eye Exam: Positive: Conjunctiva & lids normal, EOMI, PERRLA, Negative: Sclera icteric ENT Exam: Positive: Atraumatic, Mucous membr. moist/pink, Pharynx Normal Neck Exam: Positive: Supple, Negative: JVD, thyromegaly Chest Exam: Positive: Clear to auscultation, Normal air movement Heart Exam: Positive: Normal S1, Normal S2, Rate Normal, Regular Rhythm, Negative: Murmurs, Rubs Abdomen Exam: Positive: Normal bowel sounds, Soft, Negative: Hepatospenomegaly, Tenderness Extremity Exam: Positive: Normal pulses, Negative: Clubbing, Cyanosis, Edema Neuro Exam: Positive: Normal Speech, Other (SLR positive at about 40 degree on the right leg. ), Sensation Intact, Strength at 5/5 X4 ext Vital Signs/I&O Vital Signs Date Time Temp Pulse Resp B/P Pulse Ox O2 Delivery O2 Flow Rate FiO2 09/03/16 11:50 18 09/03/16 10:45 100.6 09/03/16 06:00 72 163/78 94 Room Air 08/31/16 10:59 2.0 I&O- Last 24 Hours up to 6 AM 09/03/16 06:00 Intake Total 1900 ml Output Total 1725 ml Balance 175 ml Laboratory Data Labs 24H Laboratory Tests 2 09/03/16 06:17: Anion Gap 10, C-Reactive Protein, Quantitative 18.80H, Blood Urea Nitrogen 21H, Creatinine 1.21, Sodium Level 139, Potassium Level 3.3L, Chloride Level 105, Carbon Dioxide Level 24, Calcium Level 7.9L, Erythrocyte Sedimentation Rate 126H , Glomerular Filtration Rate > 60.0, Magnesium Level 2.4 CBC/BMP Laboratory Tests 09/03/16 06:17 Calcium Level 7.9 L, Red Blood Count 3.28 L, Mean Corpuscular Volume 90.1, Mean Corpuscular Hemoglobin 29.9, Mean Corpuscular Hemoglobin Concent 33.1, Red Cell Distribution Width 14.5 Microbiology Microbiology 08/31/16 Blood Culture - Final, Complete Staphylococcus Aureus 08/31/16 Blood Culture - Final, Complete Staphylococcus Aureus 08/30/16 Blood Culture - Final, Complete Staphylococcus Aureus 08/30/16 Blood Culture - Final, Complete Staphylococcus Aureus 09/01/16 Urine Culture - Final, Complete Escherichia Coli ROSE MARY CASTANON MD Sep 03, 2016 12:20
[2016-09-03 14:00] VITALS: BP 168/76
--- NOTE | 2016-09-03 14:57 | REP ---
SOFT-TISSUE MUSCULOSKELETAL ULTRASOUND RIGHT PARASPINAL SOFT TISSUES AND RIGHT HIP PERIARTICULAR SOFT TISSUES: HISTORY: Staff bacteremia. Hip MR study from August 30, 2016 showed muscle edema in the right paraspinal musculature. No abnormality corresponding to this was seen on CT study from September 01, 2016. SONOGRAPHIC FINDINGS: Right paraspinal lumbosacral spine ultrasound shows a small quantity of fluid along the posterior aspect of the right L4-5 facet joint. Bony spurring and hypertrophy are seen. A small quantity of fluid is seen 1.6 x 0.8 cm. The patient was not particularly tender to scanning here. The adjacent and superficial soft tissues are unremarkable. Scanning over the periarticular regions of the hip shows no periarticular or intramuscular abnormality. IMPRESSION: Minimal fluid surrounding a hypertrophied right L4-5 facet joint. No evidence of soft tissue abscess or other significant finding. Signed by Evret Romano MD 09/03/2016 03:21 P
[2016-09-03] MEDS: ACETAMINOPHEN TAB 650MG DOSE (2X325MG) PO PRN ×2 (16:25→20:59)
--- NOTE | 2016-09-03 17:42 | CR.PDOC ---
[facility] Consultation Consultation DATE OF SERVICE: 09/03/16 CONSULTING DOCTOR: Dr. Herrera REASON FOR CONSULT: MSSA bacteremia HISTORY OF PRESENT ILLNESS: Patient is a 76-year-old male who presented to the hospital on 08/30 with a chief complaint of back pain. Patient says that his symptoms began a week and a half ago while walking out to his truck, going down some stairs. At that time he says he felt a pop in his back. He developed back pain which was progressively getting worse. He says that he went into the ER last Saturday due to worsening pain. He was complaining of pain in his right hip with pain radiation down his right leg. He says he has never had a pain like this before. He denies any history of joint replacement or artificial heart valves. Since being hospitalized he has had a lumbar x-ray which has shown degenerative disc disease. Lumbar spine MRI which shows disc bulges. Hip x-ray which shows right hip osteoarthritis. Chest CT which shows bilateral lower lobe infiltrates and CT of abdomen and pelvis which shows diverticulosis. Patient has had 4 blood cultures positive for MSSA, urine culture which grew 60,000 colony-forming units of Escherichia coli. Patient has also had complaint of coffee-ground hematemesis while being hospitalized. ALLERGIES: Sulfa CURRENT MEDICATIONS: Tylenol 650 mg by mouth every 4 hours when necessary for pain or fever Aspirin 81 mg by mouth daily at bedtime Diphenhydramine 25 mg by mouth daily at bedtime when necessary for insomnia Folic acid 1 mg by mouth daily at bedtime Hydroxychloroquine 200 mg by mouth daily at bedtime Lidoderm patch 1 patch topical daily 2% lidocaine 5 miles swish and swallow every 4 hours when necessary for sore throat Methotrexate 17.5 mg by mouth every Saturday Morphine sulfate 2 mg IV every 2 hours when necessary for pain Nafcillin 2 g IV every 6 hours Nicotine patch 21 mcg transdermal daily Zofran 4 mg IV every 6 hours when necessary for nausea or vomiting Percocet 5/325 mg by mouth every 4 hours when necessary for pain Protonix 40 mg IV twice a day Ramipril 10 mg by mouth daily at bedtime Senokot 1 tab by mouth twice a day Carafate 1 g by mouth every before meals, daily at bedtime Tizanidine 4 mg by mouth 3 times a day PAST MEDICAL HISTORY: Rheumatoid arthritis, hypertension, GERD PAST SURGICAL HISTORY: Facial cyst removal SOCIAL HISTORY: Patient smoked one pack a day for 50 years, occasionally drinks alcohol. He denies any history of IV/recreational drug use REVIEW OF SYSTEMS: Constitutional: Positive for fevers, denies chills or night sweats HEENT: Head: denies headaches, dizziness, light-headedness. Eyes: denies blurry vision, double vision. Ears: Positive for chronic hearing loss. Nose: denies sinus pain, pressure, rhinorrhea, postnasal drip. Throat: denies sore throat, cough, difficulty swallowing Cardiovascular: denies chest discomfort/pain, palpitations Respiratory: Positive for shortness of breath with activity Gastrointestinal: denies nausea, vomiting, diarrhea, constipation, abdominal pain, melena, hematochezia : denies dysuria, hematuria Musculoskeletal: Positive for right hip pain which patient said is improving but still having pain with activity Neurological: denies numbness, tingling, paresthesias Lymphatics: denies palpable lymph nodes or swollen glands Integumentary: denies any cuts, rashes, bruises Endocrine: denies polyuria, polydipsia. PHYSICAL EXAMINATION: Vitals: Temperature 99.3, pulse 72, respiratory rate 16, blood pressure 168/76, pulse ox 96% on room air General: Patient awake in bed, alert and oriented, verbal and able to answer questions appropriately. He does not appear to be in any acute distress HEENT: Head: normocephalic, atraumatic. Eyes: pupils equally reactive to light , conjunctiva are pink, sclera are nonicteric. Throat: buccal mucosa is pink and moist with no lesions in the oropharynx Respiratory: clear to auscultation bilaterally with no wheezes, rales, or rhonchi. Cardiovascular: regular rate and rhythm, with no murmurs, rubs or gallops. Abdomen: soft, nontender, nondistended, no hepatosplenomegaly appreciated. Bowel sounds present. Extremities: 5/5 strength in upper and lower extremities bilaterally, no swelling in either lower extremity bilaterally. Right SI joint tender to palpation, no fluctuant areas present over right hip or right SI joint. Dystrophic toenails present in upper and lower extremities Neurological: sensation intact and symmetrical in upper and lower extremities bilaterally Lymphatics: no palpable lymph nodes, swollen glands Integumentary: skin free from rashes, lesions, abrasions Vascular: pulses palpable and symmetrical in upper and lower extremities bilaterally LABORATORY DATA: CBC: White blood cells 9.6, H&H 9.8/29.6, platelets 233 ESR 126, up from 68 and 08/31 C-reactive protein 18.8, down from 21.4 on 08/31 Chemistry: Sodium 139, potassium 3.3, chloride 105, carbon index of 24, BUN 21, creatinine 1.21, glucose 96, calcium 7.9, magnesium 2.4 Urine analysis from 09/01: Color yellow, appearance hazy, pH 5.0, specific gravity 1.026, 1+ protein, trace ketones, 0.2 urobilinogen, 3 white blood cells , 4 red blood cells, 1 squamous epithelial cell. Negative for all of the following: Glucose, blood, nitrites, bilirubin, leukocyte esterase, bacteria MICROBOIOLOGY: Blood cultures 2 from 08/30 MSSA 1 cultures 2 from 08/31 MSSA Urine culture from 09/01 60,000 colony-forming units of Escherichia coli Blood cultures 2 from 09/03 pending ASSESSMENT: Patient is a 76-year-old male with MSSA bacteremia with unidentified source. PLAN: #1: MSSA bacteremia: Frequency of nafcillin will be increased to 2 g IV every 4 hours. We will decrease patient's weekly methotrexate as this is an immunosuppressive agent and could be exacerbating his symptoms. We will call patient's duck farmer tomorrow for further discussion about care. Patient will be requiring extended course of IV antibiotics and will require a PICC line once patient has negative cultures. #2: Coffee-ground hematemesis: Patient with complaint of episode of coffee- ground hematemesis. Patient will be further evaluated with stool Hemoccult, continue daily IV Protonix. #3: Asymptomatic bacteriuria: Patient's urine culture grew 60,000 colony- forming units of Escherichia coli: This represents asymptomatic bacteriuria, patient is not complaining of any urinary symptoms. No further treatment necessary. My preceptor for this patient encounter was physically present in the building during the encounter and was fully available. As needed, all aspects of the patient interview, examination, medical decision making process, and medical care plan development were reviewed and approved by the preceptor. Preceptor is aware and concurs with the plan as stated in the body of this note and will attest to such by his/her cosignature. Allergies Coded Allergies: Sulfa Antibiotics (Verified Allergy, Unknown, HIVES, 04/14/14) Home Medications Scheduled (Rabeprazole Sodium) 20 Mg Tab 20 MG PO QHS (Reported) Aspirin (Aspirin 81) 81 Mg Tab 81 MG PO QHS (Reported) Folic Acid (Folic Acid) 1 Mg Tab 1 MG PO QHS (Reported) Hydroxychloroquine Sulfate (Hydroxychloroquine Sulfat) 200 Mg Tab 200 MG PO QHS (Reported) Methotrexate (Methotrexate) 2.5 Mg Tab 7 TABS PO QWEEK (Reported) TUESDAYS Ramipril (Ramipril) 10 Mg Cap 10 MG PO QHS (Reported) RAFITA MADDEN DO Sep 03, 2016 17:42
--- NOTE | 2016-09-03 19:28 | ECHO ---
DATE OF PROCEDURE: 09/03/2016 REFERRING PHYSICIAN: Lucille Herrera MD INDICATION: Bacteremia. HEIGHT: 165 cm WEIGHT: 89 kg DIMENSIONS: IVS: 1.0 LV: 4.6 LVPW: 1.0 LA: 3.8 Aorta: 3.2 FINDINGS: The study is of good technical quality. Left ventricle is normal size and systolic function with estimated ejection fraction (EF) of 60-65%. Right ventricle is also normal size and systolic function. Both atria are probably mildly enlarged. Aortic valve is minimally sclerotic, but has normal mobility. Mitral valve, tricuspid valve and pulmonic valves all appear normal for patient's age. No pericardial effusion is noted. Inferior vena cava was reasonably well seen and is normal caliber. Aortic root is normal. Aortic arch and abdominal aorta were not well seen. Doppler interrogation reveals no aortic stenosis and minimal insufficiency. There is also trace mitral and trace tricuspid insufficiency. Calculated pulmonary artery pressure is in 30s corresponding to mild pulmonary hypertension. Pulmonic valve is functionally competent. Mitral inflow pattern and tissue Doppler imaging of mitral annulus reveal grade 2 diastolic dysfunction. CONCLUSIONS: 1. Study is of good technical quality. 2. Normal LV size and systolic function, grade 2 diastolic dysfunction. 3. Aortic sclerosis resulting in no significant stenosis and trace insufficiency. 4. Trace mitral insufficiency. 5. Trace tricuspid insufficiency, mild pulmonary hypertension. 6. Probably normal central venous pressure. COMMENT: Subacute bacterial endocarditis (SBE) prophylaxis is not recommended. No vegetations were seen. If high clinical suspicion for bacterial endocarditis is present then transesophageal echocardiogram will provide more detail.
[2016-09-03] MEDS: **NOTE PATIENT COMMENT** MISC XX SCH (21:00)
[2016-09-03] MEDS: ASPIRIN 81 MG ENTERIC TAB PO SCH (21:01)
[2016-09-03] MEDS: RAMIPRIL 5 MG CAP PO SCH (21:01)
[2016-09-03] MEDS: HYDROXYCHLOROQUINE 200 MG TAB PO SCH (21:02)
[2016-09-03] MEDS: FOLIC ACID 1 MG TAB PO SCH (21:03)
[2016-09-03] MEDS: diphenhydrAMINE 25 MG CAP PO PRN (21:05)
[2016-09-03 22:00] VITALS: BP 118/76
[2016-09-04] MEDS: NAFCILLIN SOD 2 GM in D5W MINI-BAG PLUS 100 ML IV SCH ×6 (03:24→22:49)
[2016-09-04 06:00] VITALS: BP 207/92
[2016-09-04 06:50] LABS: ANION GAP 10 MEQ/L (8-16); BLOOD UREA NITROGEN 17 MG/DL (7-18); CALCIUM LEVEL 8.4 MG/DL (8.8-10.2); CARBON DIOXIDE LEVEL 25 MEQ/L (21-32); CHLORIDE LEVEL 103 MEQ/L (98-107); CREATININE FOR GFR 1.14 MG/DL (0.70-1.30); GLOMERULAR FILTRATION RATE > 60.0 (>42); GLUCOSE, FASTING 95 MG/DL (83-110); MAGNESIUM LEVEL 2.3 MG/DL (1.8-2.4); POTASSIUM SERUM 3.3 MEQ/L (3.5-5.1); SODIUM LEVEL 138 MEQ/L (136-145)
[2016-09-04 07:00] LABS: MEAN CORPUSCULAR HEMOGLOBIN 29.7 pg (27.0-33.0); MEAN CORPUSCULAR HGB CONC 32.5 g/dl (32.0-36.5); MEAN CORPUSCULAR VOLUME 91.3 fl (80.0-96.0); RED CELL DISTRIBUTION WIDTH 14.4 % (11.5-14.5); WHITE BLOOD COUNT 11.5 K/mm3 (4.0-10.0)
[2016-09-04] MEDS: tiZANidine 4 MG TAB PO SCH ×3 (08:46→20:11)
[2016-09-04] MEDS: SUCRALFATE SUSP 1GM/10ML UD PO SCH ×4 (08:46→20:10)
[2016-09-04] MEDS: NICOTINE 21MG/24HR 1 EA TRANSDERMAL TD SCH (08:47)
[2016-09-04] MEDS: LIDOCAINE 5% (LIDODERM) PATCH TD SCH (08:47)
[2016-09-04] MEDS: SENOKOT S TAB PO SCH ×2 (08:48→20:11)
[2016-09-04] MEDS ORDERED: METHOTREXATE 2.5 MG TAB (J8610) PO SCH (09:00)
[2016-09-04] MEDS: PANTOPRAZOLE 40MG INJ (PROTONIX) (C9113) IV SCH ×2 (09:14→20:10)
[2016-09-04] MEDS: PERCOCET 5MG/325MG TAB PO PRN ×2 (09:24→20:11)
[2016-09-04] MEDS ORDERED: POTASSIUM CHLORIDE 10 MEQ SR TABLET PO ONE (12:45)
[2016-09-04 14:42] VITALS: BP 203/89
[2016-09-04] MEDS: ACETAMINOPHEN TAB 650MG DOSE (2X325MG) PO PRN (14:48)
[2016-09-04] MEDS: HYDROXYCHLOROQUINE 200 MG TAB PO SCH (20:11)
[2016-09-04] MEDS: RAMIPRIL 5 MG CAP PO SCH (20:11)
[2016-09-04] MEDS: ASPIRIN 81 MG ENTERIC TAB PO SCH (20:11)
[2016-09-04] MEDS: FOLIC ACID 1 MG TAB PO SCH (20:11)
[2016-09-04] MEDS: **NOTE PATIENT COMMENT** MISC XX SCH (20:11)
--- NOTE | 2016-09-04 21:55 | IPNPDOC ---
Assessment/Plan Date Seen The patient was seen on 09/04/16. Problems Problems: (1) Bacteremia Status: Acute Problem Text: 4/4 bottles positive for MSSA, Antibiotic changed to nafcillin. patient does not have any metal or plastic in the body (2) Urine culture positive Status: Acute Problem Text: patient does not have any pyuria [place] [id number], ecoli continue antibiotics (3) Sepsis Status: Resolved Problem Text: source unidentified till now. Has MSSA in blood will continue with nafcillin consulted ID (4) Coffee ground emesis Status: Resolved Problem Text: possibly from acute gastritis will hold heparin , monitor hh. continue PPI and sucralfate. hg stable, (5) Low back pain radiating down leg Status: Acute Problem Text: Has moderate spinal canal stenosis at the l4 l5 level , no nerve compression noted in the MRI of the spine. MRi of the hip shows some muscle edema in the paraspinal region with possible spam will start the patient on lidoderm patch , tizanidine and continue percocet. Pain management following. (6) Rheumatoid arthritis Status: Chronic Problem Text: continue home medications (7) Hypertension Status: Chronic Problem Text: continue home medication (8) GERD (gastroesophageal reflux disease) Status: Chronic Problem Text: Has persistent hiccoughs will start lidocaine viscus. continue PPI and sucralfate. 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 Constitutional: Denies: Chills, Fever, Malaise, Night Sweats, Weakness Objective Physical Examination General Exam: Positive: Alert, No Acute Distress Eye Exam: Positive: Conjunctiva & lids normal, EOMI, PERRLA, Negative: Sclera icteric ENT Exam: Positive: Atraumatic, Mucous membr. moist/pink, Pharynx Normal Neck Exam: Positive: Supple, Negative: JVD, thyromegaly Chest Exam: Positive: Clear to auscultation, Normal air movement Heart Exam: Positive: Normal S1, Normal S2, Rate Normal, Regular Rhythm, Negative: Murmurs, Rubs Abdomen Exam: Positive: Normal bowel sounds, Soft, Negative: Hepatospenomegaly, Tenderness Extremity Exam: Positive: Normal pulses, Negative: Clubbing, Cyanosis, Edema Neuro Exam: Positive: Normal Speech, Other (SLR positive at about 40 degree on the right leg. ), Sensation Intact, Strength at 5/5 X4 ext Vital Signs/I&O Vital Signs Date Time Temp Pulse Resp B/P Pulse Ox O2 Delivery O2 Flow Rate FiO2 09/04/16 20:44 18 09/04/16 20:11 203/89 09/04/16 16:05 100.1 09/04/16 14:42 78 98 Room Air 08/31/16 10:59 2.0 I&O- Last 24 Hours up to 6 AM 09/04/16 06:00 Intake Total 1910 ml Output Total 800 ml Balance 1110 ml Laboratory Data Labs 24H Laboratory Tests 2 09/04/16 06:28: Anion Gap 10, Blood Urea Nitrogen 17, Creatinine 1.14, Sodium Level 138, Potassium Level 3.3L, Chloride Level 103, Carbon Dioxide Level 25, Calcium Level 8.4L, Glomerular Filtration Rate > 60.0, Magnesium Level 2.3 CBC/BMP Laboratory Tests 09/04/16 06:28 Calcium Level 8.4 L, Red Blood Count 3.88 L, Mean Corpuscular Volume 91.3, Mean Corpuscular Hemoglobin 29.7, Mean Corpuscular Hemoglobin Concent 32.5, Red Cell Distribution Width 14.4 Microbiology Microbiology 09/04/16 Blood Culture, Received Pending 09/03/16 Blood Culture - Preliminary, Resulted No growth after 24 hours . All specim... 09/03/16 Blood Culture - Preliminary, Resulted No growth after 24 hours . All specim... 08/31/16 Blood Culture - Final, Complete Staphylococcus Aureus 08/31/16 Blood Culture - Final, Complete Staphylococcus Aureus 08/30/16 Blood Culture - Final, Complete Staphylococcus Aureus 08/30/16 Blood Culture - Final, Complete Staphylococcus Aureus 09/04/16 Stool Occult Blood (NEIL) - Final, Complete 09/01/16 Urine Culture - Final, Complete Escherichia Coli ESTHER PANDEY DO Sep 04, 2016 21:55 Staphylococcus Aureus 09/04/16 Stool Occult Blood (NEIL) - Final, Complete 09/01/16 Urine Culture - Final, Complete Escherichia Coli ESTHER PANDEY DO Sep 04, 2016 21:55
[2016-09-04 22:00] VITALS: BP 172/83
[2016-09-05] MEDS: diphenhydrAMINE 25 MG CAP PO PRN (02:07)
[2016-09-05] MEDS: ACETAMINOPHEN TAB 650MG DOSE (2X325MG) PO PRN ×4 (02:07→20:15)
[2016-09-05] MEDS: NAFCILLIN SOD 2 GM in D5W MINI-BAG PLUS 100 ML IV SCH ×6 (02:59→22:46)
[2016-09-05 06:00] VITALS: BP 158/73
[2016-09-05 06:49] LABS: MEAN CORPUSCULAR HEMOGLOBIN 29.3 pg (27.0-33.0); MEAN CORPUSCULAR HGB CONC 32.3 g/dl (32.0-36.5); MEAN CORPUSCULAR VOLUME 90.8 fl (80.0-96.0); RED CELL DISTRIBUTION WIDTH 13.5 % (11.5-14.5); WHITE BLOOD COUNT 11.4 K/mm3 (4.0-10.0)
[2016-09-05 07:04] LABS: ANION GAP 10 MEQ/L (8-16); BLOOD UREA NITROGEN 13 MG/DL (7-18); CARBON DIOXIDE LEVEL 25 MEQ/L (21-32); CHLORIDE LEVEL 105 MEQ/L (98-107); CREATININE FOR GFR 1.11 MG/DL (0.70-1.30); GLOMERULAR FILTRATION RATE > 60.0 (>42); GLUCOSE, FASTING 93 MG/DL (83-110); MAGNESIUM LEVEL 2.3 MG/DL (1.8-2.4); POTASSIUM SERUM 3.4 MEQ/L (3.5-5.1); SODIUM LEVEL 140 MEQ/L (136-145)
[2016-09-05] MEDS: SUCRALFATE SUSP 1GM/10ML UD PO SCH ×4 (07:27→20:09)
--- NOTE | 2016-09-05 07:54 | IPN ---
DATE: 09/04/2016 Mr. Lizama continues to complain of significant right-sided hip pain, where he describes the pain as mostly in the sacroiliac joint on the right side. He has difficulty stepping and walking as well. He has less difficulty sitting up. He has no nausea, vomiting or diarrhea. He had a temperature of 101.1 and feels very hot right now. Temperature is 101.1, pulse 78, respirations 16, blood pressure 203/89, oxygen saturation 98% on room air. Heart: Normal S1, S2. No murmurs appreciated. Lungs: Clear. No wheezes, rales or rhonchi. Abdomen: Soft, nontender. No hepatosplenomegaly. Right sacroiliac joint is significantly tender. Right hip: Patient has full hip flexion, abduction and adduction without difficulty, except for some tenderness. Knee flexion and extension are normal. Discs: No tenderness along midthoracic to lumbosacral spine. Labs: White count is 11.5, hemoglobin 11.5, hematocrit 35.4, platelets 220. Sedimentation rate is 126, increased from 68. Sodium 138, potassium 3.3, chloride 103, bicarbonate 25, BUN 17, creatinine 1.14, glucose 95, calcium 8.4, magnesium 2.3. Blood cultures, on 08/30/2016, two sets were positive for methicillin-susceptible Staphylococcus aureus (MSSA). 08/31/2016, there were also two sets positive for MSSA. On 09/03/2016, blood cultures were no growth after 24 hours. Stool hemoccult is positive. Urine culture had 60,000 Escherichia (E) coli, but patient is asymptomatic. Urinalysis had only 3 white cells. ASSESSMENT: 1. Staphylococcus aureus sepsis. Cultures positive for MSSA over 24 hours. He has four positive cultures with imaging study that is nonrevealing, although clinically the patient has right sacroiliitis and that could be possibly the joint that is infected, the sacroiliac joint. MRI of the right hip without contrast shows skeletal muscle edema in the dorsal paraspinal skeletal muscles adjacent to the L4 to S1. On the right side uncertain significance, question muscle strain. There is some mild right hip osteoarthritis and spurring and chondromalacia. No joint effusions are noted. No evidence of avascular necrosis. CT of the abdomen and pelvis showed no ascites, adenopathy, diverticulosis but no diverticulitis. Multiple renal cysts and a polyp, and a gallbladder. No bowel extension. Echocardiogram, done by Dr. Clayton, shows normal LV size, grade 2 diastolic dysfunction, aortic sclerosis, trace mitral insufficiency, trace tricuspid insufficiency. 2. Guiaic positive stool. The patient did complain of hematemesis with black vomiting most likely from peptic ulcer disease. He is on Protonix IV as well as Carafate 1 gram before meals and nightly. He has never had an endoscopy. PLAN: The patient will be continued on nafcillin 2 grams IV every 4 hours. Repeat blood cultures are negative in 24 hours. Discontinue all immunosuppressive therapy, including methotrexate and Remicade, for at least the next 8 weeks. The patient could continue on Plaquenil. Nafcillin 2 grams IV every 4 hours will be continued. He will need a peripherally inserted central catheter (PICC) line, home IV antibiotic. I would re-admit his right hip in the next couple of days. Please also consult orthopedics surgery to evaluate him. Sometimes imaging may be delayed and infection does not show up on imaging until 3 or 4 days after patient presents to the hospital. I would definitely look back into his right sacroiliac joint whether this is the source of infection. I will also order a PICC line for the morning for the morning.
[2016-09-05 08:30] VITALS: BP 157/79
[2016-09-05] MEDS: tiZANidine 4 MG TAB PO SCH ×3 (08:30→20:10)
[2016-09-05] MEDS: LIDOCAINE 5% (LIDODERM) PATCH TD SCH (08:31)
[2016-09-05] MEDS: NICOTINE 21MG/24HR 1 EA TRANSDERMAL TD SCH (08:34)
[2016-09-05] MEDS: SENOKOT S TAB PO SCH ×2 (09:00→20:09)
[2016-09-05] MEDS ORDERED: POTASSIUM CHLORIDE 10 MEQ SR TABLET PO ONE (12:15)
[2016-09-05] MEDS: PANTOPRAZOLE 40MG INJ (PROTONIX) (C9113) IV SCH ×2 (13:20→20:10)
[2016-09-05 14:00] VITALS: BP 151/82
[2016-09-05] MEDS ORDERED: SODIUM CHLORIDE 0.9% INJ 10 ML SYR IV PRN (14:00)
--- NOTE | 2016-09-05 16:34 | REP ---
Procedure: PICC line insertion with Jaci-Cristopher The procedure was performed under the direct supervision of Dr. Romano. The risks and benefits of the procedure were explained to the patient and informed consent was obtained. The right basilic vein was localized using ultrasound guidance. The skin was prepped and draped in a sterile fashion. 2% lidocaine was used as a local anesthetic. Using ultrasound guidance the basilic vein was cannulated and a 0.018 guidewire was inserted and advanced to the SVC using fluoroscopic guidance. The needle was removed and a 5.5 [place] dilator and peel-away sheath was inserted over the guide wire. A 5.5 [place] dual lumen catheter was cut to length of 44 cm. The dilator was removed and the catheter was inserted over the guide wire with the tip ending in the SVC. The peel-away sheath was removed and the catheter was flushed with heparinized saline as per Hospital protocol. The catheter was affixed to the skin and a sterile dressing was applied. The the patient tolerated the procedure well and there were no immediate complications. 0.2 minutes of fluoro time was utilized for this procedure. Reviewed by KAITLIN Chaudhary 09/05/2016 03:17 PSigned by Evert Romano MD 09/05/2016 04:25 P
[2016-09-05] MEDS: SODIUM CHLORIDE 0.9% INJ 10 ML SYR IV SCH (18:00)
[2016-09-05] MEDS: HYDROXYCHLOROQUINE 200 MG TAB PO SCH (20:09)
[2016-09-05] MEDS: ASPIRIN 81 MG ENTERIC TAB PO SCH (20:10)
[2016-09-05] MEDS: **NOTE PATIENT COMMENT** MISC XX SCH (20:10)
[2016-09-05] MEDS: FOLIC ACID 1 MG TAB PO SCH (20:10)
[2016-09-05] MEDS: RAMIPRIL 5 MG CAP PO SCH (20:15)
[2016-09-05 20:30] VITALS: BP 157/79
[2016-09-06] MEDS: NAFCILLIN SOD 2 GM in D5W MINI-BAG PLUS 100 ML IV SCH ×6 (03:28→22:55)
[2016-09-06 06:00] VITALS: BP 163/78
[2016-09-06] MEDS: SODIUM CHLORIDE 0.9% INJ 10 ML SYR IV SCH ×2 (06:53→12:04)
[2016-09-06] MEDS: SUCRALFATE SUSP 1GM/10ML UD PO SCH ×4 (06:54→21:08)
[2016-09-06] MEDS: ACETAMINOPHEN TAB 650MG DOSE (2X325MG) PO PRN ×2 (06:56→21:09)
[2016-09-06 06:57] LABS: MEAN CORPUSCULAR HEMOGLOBIN 29.3 pg (27.0-33.0); MEAN CORPUSCULAR HGB CONC 32.3 g/dl (32.0-36.5); MEAN CORPUSCULAR VOLUME 90.8 fl (80.0-96.0); RED CELL DISTRIBUTION WIDTH 13.5 % (11.5-14.5); WHITE BLOOD COUNT 13.2 K/mm3 (4.0-10.0)
[2016-09-06 07:21] LABS: ANION GAP 10 MEQ/L (8-16); BLOOD UREA NITROGEN 9 MG/DL (7-18); CALCIUM LEVEL 8.5 MG/DL (8.8-10.2); CARBON DIOXIDE LEVEL 25 MEQ/L (21-32); CHLORIDE LEVEL 104 MEQ/L (98-107); CREATININE FOR GFR 1.05 MG/DL (0.70-1.30); GLOMERULAR FILTRATION RATE > 60.0 (>42); GLUCOSE, FASTING 98 MG/DL (83-110); MAGNESIUM LEVEL 2.3 MG/DL (1.8-2.4); POTASSIUM SERUM 3.5 MEQ/L (3.5-5.1); SODIUM LEVEL 139 MEQ/L (136-145)
[2016-09-06] MEDS: LIDOCAINE 5% (LIDODERM) PATCH TD SCH (08:39)
[2016-09-06] MEDS: tiZANidine 4 MG TAB PO SCH ×3 (08:40→21:08)
[2016-09-06] MEDS: PERCOCET 5MG/325MG TAB PO PRN ×2 (08:40→13:48)
[2016-09-06] MEDS: NICOTINE 21MG/24HR 1 EA TRANSDERMAL TD SCH (08:40)
[2016-09-06] MEDS: SENOKOT S TAB PO SCH ×2 (09:00→21:00)
[2016-09-06] MEDS: PANTOPRAZOLE 40MG INJ (PROTONIX) (C9113) IV SCH ×2 (09:31→21:09)
[2016-09-06 14:00] VITALS: BP 170/81
--- NOTE | 2016-09-06 15:18 | IPNPDOC ---
Assessment/Plan Date Seen The patient was seen on 09/06/16. Problems Problems: (1) Bacteremia Status: Acute Problem Text: / bottles positive for MSSA, Antibiotic changed to nafcillin. patient does not have any metal or plastic in the body echo is negative ct abdomen and pelvis and ct chest done no collection / abscess or pneumonia, has some bilateral sub segmental atelectasis. MRI of the hip showed mild arthritis s/p picc line yesterday, will continue nafcillin (2) Urine culture positive Status: Acute Problem Text: patient does not have any pyuria [place] 10149, ecoli continue antibiotics (3) Sepsis Status: Resolved (4) Coffee ground emesis Status: Resolved Problem Text: possibly from acute gastritis (5) Low back pain radiating down leg Status: Acute Problem Text: Has moderate spinal canal stenosis at the l4 l5 level , no nerve compression noted in the MRI of the spine. MRi of the hip shows some muscle edema in the paraspinal region with possible spam will start the patient on lidoderm patch , tizanidine and continue percocet. Pain management following. (6) Rheumatoid arthritis Status: Chronic Problem Text: continue home medications (7) Hypertension Status: Chronic Problem Text: continue home medication (8) GERD (gastroesophageal reflux disease) Status: Chronic Problem Text: Has persistent hiccoughs continue lidocaine viscus. continue PPI and sucralfate. 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 Events since last encounter pt seen and examined, doing well, but still complaining of hip pain, had fever yesterday 101.1 General: Denies: Chills, Fatigue, Malaise, Night Sweats, Normal Appetite, Other Symptoms, ROS Unobtainable Constitutional: Reports: Chills, Fever Musculoskeletal: Reports: Joint Pain, Leg Pain Objective Physical Examination General Exam: Positive: Alert, No Acute Distress Eye Exam: Positive: Conjunctiva & lids normal, EOMI, PERRLA, Negative: Sclera icteric ENT Exam: Positive: Atraumatic, Mucous membr. moist/pink, Pharynx Normal Neck Exam: Positive: Supple, Negative: JVD, thyromegaly Chest Exam: Positive: Clear to auscultation, Normal air movement Heart Exam: Positive: Normal S1, Normal S2, Rate Normal, Regular Rhythm, Negative: Murmurs, Rubs Abdomen Exam: Positive: Normal bowel sounds, Soft, Negative: Hepatospenomegaly, Tenderness Extremity Exam: Positive: Normal pulses, Negative: Clubbing, Cyanosis, Edema Neuro Exam: Positive: Normal Speech, Other (SLR positive at about 40 degree on the right leg. ), Sensation Intact, Strength at 5/5 X4 ext Vital Signs/I&O Vital Signs Date Time Temp Pulse Resp B/P Pulse Ox O2 Delivery O2 Flow Rate FiO2 09/06/16 14:00 98.9 69 18 170/81 94 Room Air 08/31/16 10:59 2.0 I&O- Last 24 Hours up to 6 AM 09/06/16 06:00 Intake Total 140 ml Output Total 500 ml Balance -360 ml Laboratory Data Labs 24H Laboratory Tests 2 09/06/16 06:38: Anion Gap 10, Calcium Level 8.5L, Glomerular Filtration Rate > 60.0, Magnesium Level 2.3 CBC/BMP Laboratory Tests 09/06/16 06:38 Red Blood Count 3.86 L, Mean Corpuscular Volume 90.8, Mean Corpuscular Hemoglobin 29.3, Mean Corpuscular Hemoglobin Concent 32.3, Red Cell Distribution Width 13.5 Microbiology Microbiology 09/04/16 Blood Culture - Preliminary, Resulted No Growth after 48 hours. All Specime... 09/03/16 Blood Culture - Preliminary, Resulted No Growth after 72 hours. All specime... 09/03/16 Blood Culture - Preliminary, Resulted No Growth after 72 hours. All specime... 08/31/16 Blood Culture - Final, Complete Staphylococcus Aureus 08/31/16 Blood Culture - Final, Complete Staphylococcus Aureus 08/30/16 Blood Culture - Final, Complete Staphylococcus Aureus 08/30/16 Blood Culture - Final, Complete Staphylococcus Aureus 09/04/16 Stool Occult Blood (NEIL) - Final, Complete 09/01/16 Urine Culture - Final, Complete Escherichia Coli ESTHER PANDEY DO Sep 06, 2016 15:18
[2016-09-06 15:45] LABS: ALBUMIN 2.5 GM/DL (3.2-5.2); ALBUMIN/GLOBULIN RATIO 0.48 (1.00-1.93); ALKALINE PHOSPHATASE 72 U/L (45-117); ALT/SGPT 37 U/L (12-78); AST/SGOT 31 U/L (15-37); BILIRUBIN,DIRECT 0.1 MG/DL (0.0-0.2); BILIRUBIN,TOTAL 0.5 MG/DL (0.2-1.0); TOTAL PROTEIN 7.7 GM/DL (6.4-8.2)
[2016-09-06] MEDS: chlorproMAZINE 25 MG TAB (Q0161) PO SCH ×2 (16:36→21:09)
--- NOTE | 2016-09-06 19:47 | CR ---
DATE OF CONSULTATION: 09/06/2016 REASON FOR CONSULTATION: Right buttock pain with methicillin-sensitive Staphylococcus aureus sepsis. HISTORY OF THE PRESENT ILLNESS: He is a 76-year-old male who has a significant history of rheumatoid arthritis and psoriasis who is on methotrexate, Remicade, ramipril, and hydroxychloroquine, who is followed by his student support advisor, Dr. Carrillo, who has not really had troubles with hip pain or back pain in the past that he can recall but about a week or so prior to admission, he got out of his truck and he felt a pop sensation and he points to his right buttock area, posteriorly, and got back into his truck, drove home, hung out for a couple of days, his pain did not get better and eventually called the ambulance from [facility] and they took him to [facility] on Saturday where he was admitted, and complaining of pain in the right side of his back and buttock area, sometimes radiating down the back of his leg to some degree but without tingling or numbness into his toes. No bowel or bladder problems otherwise. There was no associated fevers or chills upon admission and so he was admitted to the hospital and found to have a white blood count of 13.5 and his C-reactive protein (CRP) was elevated at 18. Imaging studies in the emergency room of the hip showed some mild arthritis on the right side and lumbar spine shows some lower lumbar spondylosis in the posterior aspects of his back. He did have a back x-ray back in 2008, which was reviewed, so he has had some chronic back troubles in the past. During his hospital course, blood cultures came back positive for methicillin-sensitive Staphylococcus aureus. His sedimentation (sed) is 126, and he has continued to spike fevers. As of yesterday, his maximum temperature (T max) is 101.6. There has been no further fever since yesterday and CRP is trending down. But because of his persisting fevers and pain that was unexplained, Dr. Lemos from infectious disease asked me to consult. Otherwise, his past medical history is per the present illness, but he also has a history of high blood pressure and gastric reflux. Dr. Gann cares for him medically. Past surgical history is some facial cysts. He has been a smoker. He does not drink alcohol excessively. He is retired. HOME MEDICATIONS: - baby aspirin - folate - hydroxychloroquine - methotrexate - rabeprazole - ramipril - Remicade infusions REVIEW OF SYSTEMS: Health survey is otherwise unremarkable. PHYSICAL EXAMINATION: When I examined him in his hospital bed, he is a pleasant male. Presently, he is afebrile with stable vital signs. He complains mainly of pain into his right buttock area, somewhat around laterally at times where he has a lidocaine patch. He can do straight leg raising bilaterally, but the right side does cause discomfort and pain in the back of his right buttock area, just lateral to the ischial tuberosity. Distal neurovascular exam was normal. He has normal strength in dorsiflexion and plantar flexion of his feet. Normal sensation. Good pulses. No swelling of his ankles. No significant irritability with internal/external rotation of the right hip, but there is some mild soreness in the buttock when I do so. I had him stand and walk, and I examined his lumbar spine, it is nontender. There is some tenderness over the right sacroiliac (SI) joint and right buttock area. It is not tender over the trochanter. He can heel walk and toe walk. Imaging studies were reviewed in detail with the radiologist, Dr. Romano. We reviewed his MR scan and CT scan of his lumbar spine and right hip and really there are relatively benign findings. There is no definitive abscess that we could identify, there was no hip joint fluid that is consistent with an abscess or a septic hip. There are some renal cysts noted, which are chronic compared to prior CT scans done several years ago. There may be some mild fluid in one of the paralumbar muscles, but it is a soft call; we only see it on the coronal images of the MR scan, we do not really see it well on sagittal or axial imaging on the right side. LABORATORY STUDIES: His white count today is still elevated at 13.2, but his CRP is down to 12 and his blood cultures from 08/31/2016 were positive for Staphylococcus aureus and he had a urine culture the day after on 09/01/2016, positive for Escherichia (E) coli. IMPRESSION: Staphylococcus aureus sepsis with right buttock pain without clear evidence of abscess or source. It is unclear whether or not this episode of pain in his hip is related to the infection; it is still possible, but he seems to be getting somewhat better. He feels that he is better today than he was a couple of days ago and his CRP is trending down. I think it is best probably to continue to observe and keep on the present course of the IV antibiotics of nafcillin and trend his CRPs and follow him along clinically, and if he continues to improve, will continue to follow this. If he deteriorates or gets worse, or continues to have fevers, we should re-image with an MR scan of the right buttock and hip area. I discussed this in length and detail with Dr. Romano and Dr. Lemos and the infectious disease team. JOAN
--- NOTE | 2016-09-06 20:33 | IPN ---
DATE: 09/06/2016 SUBJECTIVE: The patient is a 76-year-old male who was admitted on 08/30/2016 with right sided hip pain and found to have methicillin sensitive Staphylococcus aureus (MSSA) bacteremia. He was seen today for infectious disease consultation. The patient was seen and examined at bedside. The patient says that he is feeling a little bit better today. He is still having some pain in his back and right hip. He does however say that he was able to walk a couple loops around the unit today and this is the first time that he has been able to do that. He has been having nightly fevers, but denies any redness or swelling around his hip or the buttock. OBJECTIVE: VITAL SIGNS: Temperature 98.9, maximum temperature (t-max) 101.6, heart rate 69 , respiratory rate 16, blood pressure 170/81, pulse oximetry 94% on room air. GENERAL: The patient is sitting up in bed, awake, alert and oriented. Verbal and able to answer questions appropriately. He does appear to have some pain with movement with transition. HEART: Regular rate and rhythm. S1, S2. No murmurs, rubs, clicks, or gallops. LUNGS: Clear to auscultation bilaterally. No wheezes, rales, or rhonchi. ABDOMEN: Active bowel sounds. Soft, nontender. No masses to palpation. EXTREMITIES: Right sided sacroiliac joint pain with movement, right sacroiliac joint and hip are nontender to palpation. SKIN: No erythema or skin changes present over right hip, right sacroiliac joint. LABORATORY DATA: Complete blood count (CBC) white blood cells 13.2, hemoglobin and hematocrit 11.3 and 35.0, platelets 411. Chemistry: Sodium 139, potassium 3.5, chloride 104, creatinine 1.05, glucose 98 , calcium 8.5. Liver profile: ALT 31, AST 37, alkaline phosphatase 72, total bilirubin 0.5, direct bilirubin 0.1, protein 7.7, albumin 2.5. C-reactive protein 12.1, this is down from 18.8 on 09/03/2016. Microbiology: Blood cultures times two from 09/03/2016 with no growth after 72 hours, blood culture times one from 09/04/2016 with no growth after 48 hours. ASSESSMENT: The patient with methicillin sensitive Staphylococcus aureus (MSSA) positive blood cultures. The patient is clinically improving, has been up and able to walk. PLAN: 1. MSSA positive blood culture. Repeat blood cultures at 72 hours and 48 hours are both negative. The patient is having some improvement. He is able to walk, was walking a couple of loops around the unit earlier today. C-reactive protein is improving. The patient has continued to have nightly fevers and white blood cell count is up today, up to 13.2. Due to the patient's continued fevers and leukocytosis, order was placed for orthopedic consultation for further evaluation. We will check daily C-reactive protein. We will continue to monitor the patient's laboratories. If the patient does not continue to improve over the weekend, we will revisit reimaging the patient on Saturday. The patient will continue on current dose of nafcillin 2 grams intravenously every 4 hours. 2. Intractable hiccups. Order placed for chlorpromazine 25 mg by mouth three times a day. My preceptor for this patient encounter was Dr. Lemos. The preceptor was physically present in the building during the encounter and was fully available. As needed, all aspects of the patient interview, examination, medical decision making process, and medical care plan development were reviewed and approved by the preceptor. The preceptor is aware and concurs with the plan as stated in the body of this note and will attest to such by his/her cosignature. JOAN
[2016-09-06] MEDS: **NOTE PATIENT COMMENT** MISC XX SCH (21:00)
[2016-09-06] MEDS: HYDROXYCHLOROQUINE 200 MG TAB PO SCH (21:08)
[2016-09-06 21:09] VITALS: BP 162/75
[2016-09-06] MEDS: FOLIC ACID 1 MG TAB PO SCH (21:09)
[2016-09-06] MEDS: RAMIPRIL 5 MG CAP PO SCH (21:09)
[2016-09-06] MEDS: ASPIRIN 81 MG ENTERIC TAB PO SCH (21:09)
[2016-09-06 22:00] VITALS: BP 162/75
[2016-09-07] MEDS: NAFCILLIN SOD 2 GM in D5W MINI-BAG PLUS 100 ML IV SCH ×3 (03:42→10:58)
[2016-09-07] MEDS: SODIUM CHLORIDE 0.9% INJ 10 ML SYR IV SCH (05:31)
[2016-09-07 06:00] VITALS: BP 160/79
[2016-09-07 06:06] LABS: BASO % 0.3 % (0.0-1.0); EOS # 0.7 K/mm3 (0.0-0.50); EOS % 5.7 % (0.0-3.0); LARGE UNSTAINED CELL # 0.4 K/mm3 (0.0-0.4); LYMPH # 2.1 K/mm3 (1.5-4.5); LYMPH % 17.1 % (24.0-44.0); MEAN CORPUSCULAR HEMOGLOBIN 29.4 pg (27.0-33.0); MEAN CORPUSCULAR HGB CONC 32.3 g/dl (32.0-36.5); MEAN CORPUSCULAR VOLUME 91.2 fl (80.0-96.0); PLATELET COUNT, AUTOMATED 459 k/mm3 (150-450); RED CELL DISTRIBUTION WIDTH 13.7 % (11.5-14.5); WHITE BLOOD COUNT 12.2 K/mm3 (4.0-10.0)
[2016-09-07 06:26] LABS: ALBUMIN 2.3 GM/DL (3.2-5.2); ALBUMIN/GLOBULIN RATIO 0.51 (1.00-1.93); ALKALINE PHOSPHATASE 66 U/L (45-117); ALT/SGPT 32 U/L (12-78); ANION GAP 11 MEQ/L (8-16); AST/SGOT 22 U/L (15-37); BILIRUBIN,TOTAL 0.5 MG/DL (0.2-1.0); BLOOD UREA NITROGEN 11 MG/DL (7-18); CALCIUM LEVEL 8.4 MG/DL (8.8-10.2); CARBON DIOXIDE LEVEL 24 MEQ/L (21-32); CHLORIDE LEVEL 106 MEQ/L (98-107); CREATININE FOR GFR 1.01 MG/DL (0.70-1.30); GLOMERULAR FILTRATION RATE > 60.0 (>42); GLUCOSE, FASTING 109 MG/DL (83-110); MAGNESIUM LEVEL 2.2 MG/DL (1.8-2.4); POTASSIUM SERUM 3.8 MEQ/L (3.5-5.1); SODIUM LEVEL 141 MEQ/L (136-145); TOTAL PROTEIN 6.8 GM/DL (6.4-8.2)
[2016-09-07] MEDS: ACETAMINOPHEN TAB 650MG DOSE (2X325MG) PO PRN (06:58)
[2016-09-07] MEDS: SUCRALFATE SUSP 1GM/10ML UD PO SCH ×2 (06:58→12:05)
[2016-09-07] MEDS: chlorproMAZINE 25 MG TAB (Q0161) PO SCH ×2 (08:03→15:01)
[2016-09-07] MEDS: tiZANidine 4 MG TAB PO SCH (10:58)
[2016-09-07] MEDS: SENOKOT S TAB PO SCH (10:58)
[2016-09-07] MEDS: PANTOPRAZOLE 40MG INJ (PROTONIX) (C9113) IV SCH (10:58)
[2016-09-07] MEDS: NICOTINE 21MG/24HR 1 EA TRANSDERMAL TD SCH (10:59)
[2016-09-07] MEDS: LIDOCAINE 5% (LIDODERM) PATCH TD SCH (11:00)
[2016-09-07 11:18] VITALS: BP 127/64
--- NOTE | 2016-09-07 13:11 | IPN ---
DATE: 09/07/2016 Mr. Lizama is anxious to go home. He wanted to go home today. He denies any nausea, vomiting or diarrhea. His hiccups seem to have improved. He had no fever last night, maximum temperature (t-max) was 99.6 and currently 97.7, pulse 80, respirations 20, blood pressure 127/64, oxygen sat 98% on room air. HEART: Normal S1, S2. No murmurs, rubs or gallops. LUNGS: Clear. No wheezes, rales, or rhonchi. ABDOMEN: Soft, nontender. No hepatosplenomegaly. BACK: No costovertebral angle tenderness. No lumbosacral tenderness, but he does have right sacroiliac tenderness along the sacroiliac joint. EXTREMITIES: No clubbing, cyanosis or edema. No calf tenderness. Straight leg raising on the right side is positive at 40 degrees, but he is much stronger. Hip joint and knee joint with full range of motion. SKIN: Psoriatic skin changes with multiple cracks, peeling of both palms, severe dystrophic changes of all nails. IMPRESSION: 1. Staphylococcus aureus sepsis with positive blood cultures and sacroiliac pain suggestive of the infected sacroiliitis. The patient has improved with IV nafcillin. Blood cultures were negative on September 03 and the patient will be continued on four weeks of IV antibiotics or negative culture, which would be 10/01/2016 end of therapy. C-reactive protein has decreased from 18.8 to 11. From an infectious disease standpoint, the patient is able to go home. 2. Rheumatoid arthritis. On Remicade and methotrexate, both have been held. Methotrexate has been held by himself 2 weeks prior to admission and Remicade was due to be given this week and it will need to be on hold for the next 4 to 6 weeks. 3. 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 The patient needs to followup with dermatology. He has not seen Rebeka Mills in over one year. That is probably the portal of entry of Staphylococcus aureus. Planned consult at [facility] for home IV antibiotics. The patient will be needing nafcillin 12 grams continuous infusion for a total of 4 weeks, negative culture on 09/03/2016, end of treatment 10/01/2016. Monitor weekly laboratories, including CBC, BMP, C-reactive protein and sedimentation rate. Followup with dermatology for psoriasis. Hold off on Remicade for the next 6 weeks. The case has been discussed with Dr. Pryor.
[2016-09-07] MEDS ORDERED: CHLOR25TA PO (13:31)
[2016-09-07] MEDS ORDERED: SUCR1SUS PO (13:31)
[2016-09-07 14:00] VITALS: BP 155/78
[2016-09-07] MEDS ORDERED: [UNRECOGNIZED DRUG - OTHER] TD (14:17)
--- NOTE | 2016-10-03 05:51 | DSES ---
DATE OF ADMISSION: 09/30/2016 DATE OF DISCHARGE: 09/07/2016 REASON FOR ADMISSION: Right side back pain. FINAL DIAGNOSES: 1. Bacteremia. 2. Positive urine culture. 3. Sepsis. SECONDARY DIAGNOSES: 1. Coffee-ground emesis. 2. Low back pain radiating down his legs. 3. Rheumatoid arthritis. 4. Hypertension. 5. Gastroesophageal reflux disease (GERD). 6. History of psoriasis. HISTORY OF PRESENT ILLNESS (HPI): Patient is a 76-year-old male presented to the hospital complaining of right-sided back pain. Patient stated he felt a pinch of pain going down his leg. Denied any falls. Denied any altered mental status. He was driving home that within the next 24 hours he was in bed, unable to toe walk, had significant pain with movement, particularly in the right lower extremity. Denies any urinary incontinence or fecal incontinence. Denies any trauma or strenuous activities. He denies any fevers, chills, dysuria. Denies any chest pain or pressure. He was admitted under hospitalist service. HOSPITAL COURSE: MRI was done of his back, which showed moderate spinal canal stenosis at L4-L5 but no nerve compression. MRI of the hip was also done, which showed some muscular edema and paraspinal region with possible spasms. He was started on a Lidoderm patch and a muscle relaxer as well as some Percocet. Pain management and physical therapy were also consulted for the patient. The following day patient had a mild temperature of 100.4. Blood cultures were obtained on 08/30/2016 and he was found to have Staphylococcus aureus in the blood times two sets. At that point, an echocardiogram was ordered. It was read by Dr. Clayton, which did not show any evidence of bacterial endocarditis as far as any valvular involvement. He says subacute bacterial endocarditis (SBE) prophylaxis was not recommended. No vegetations were seen. However, it was recommended if highly suspicious of bacterial endocarditis, which there was no need at this time. Repeat blood cultures were done on . Continued to showed two positive blood cultures of Staphylococcus aureus. At that time, Dr. Lemos was consulted for infectious disease. Patient was started on nafcillin and it was increased to 2 grams IV every 4 hours. His methotrexate was decreased. Peripherally inserted central catheter (PICC) line to be ordered once the blood cultures became negative. Patient also had positive urine culture for Escherichia (E) coli and he was also started on antibiotics. First set of blood cultures were negative on 09/03/2016. PICC line was placed at that time. He was felt to maybe having sacral iliac pain secondary to possible infected sacroiliitis. Orthopedic surgery was also consulted but felt like there was no need for any surgical intervention at this time. Patient was to continue IV antibiotics for 4 weeks. C-reactive protein started to trend down. If he was to get worse, we were going to re-image patient's hip. However, he continued to improve and re-imaging was not necessary. Once the patient's symptoms had improved and he was afebrile for more than 48 hours, he was discharged home. DISCHARGE INSTRUCTIONS: Patient was to followup with primary care provider in 1 week. He is to followup with Dr. Lemos. Diet: Low-sodium diet. Activities as tolerated. Discharge medications include chlorpromazine 25 mg by mouth three times a day for 20 tablets, nicotine kit, Carafate 1 gram by mouth before meals and at bedtime. Continue medications included aspirin 81 mg by mouth daily, folic acid 1 mg by mouth at bedtime, hydroxychloroquine 200 mg at bedtime, ramipril 10 mg at bedtime, rabeprazole 20 mg at bedtime. His methotrexate was discontinued and nafcillin was given four injections per Dr. Lemos's instruction. Discharge condition was stable.
== END 2016-09-07 18:10 | disposition home health service (06) | DRG 872 ==
LOC: M ED 07:12 → M ED INP 13:16 → M MS5PR 16:42
PROVIDERS: ADMIT Hospitalist; ATTEND Internal Medicine
PROC: 05HB33Z Insertion of Infusion Device into Right Basilic Vein, Percutaneous Approach (ICD-10-PCS; principal; 2016-09-05)
DX: A41.01 Sepsis due to Methicillin susceptible Staphylococcus aureus (principal); K92.0 Hematemesis; K28.9 Gastrojejunal ulcer, unspecified as acute or chronic, without hemorrhage or perforation; K29.00 Acute gastritis without bleeding; M51.16 Intervertebral disc disorders with radiculopathy, lumbar region; F17.210 Nicotine dependence, cigarettes, uncomplicated; M06.9 Rheumatoid arthritis, unspecified; I10 Essential (primary) hypertension; K21.9 Gastro-esophageal reflux disease without esophagitis; M16.11 Unilateral primary osteoarthritis, right hip; M51.36 Other intervertebral disc degeneration, lumbar region; L40.9 Psoriasis, unspecified; H91.93 Unspecified hearing loss, bilateral; M46.1 Sacroiliitis, not elsewhere classified; M43.16 Spondylolisthesis, lumbar region; R06.6 Hiccough; Z79.82 Long term (current) use of aspirin; Z79.899 Other long term (current) drug therapy

== ENCOUNTER → 2016-09-14 | Outpatient (REF) | payer MEDICARE, OTHER ==
[~2016-09-14] MED LIST: ASPI1TAB PO; CHLOR25TA PO; FOLI1TAB2 PO; HYDR200T3 PO; METH2.5TA PO; RABE1TAB PO; RAMI10CA PO; SUCR1SUS PO; [UNRECOGNIZED DRUG - OTHER] TD
[2016-09-14 14:29] LABS: BASO % 0.4 % (0.0-1.0); EOS # 0.4 K/mm3 (0.0-0.50); EOS % 4.6 % (0.0-3.0); LARGE UNSTAINED CELL # 0.3 K/mm3 (0.0-0.4); LYMPH # 1.4 K/mm3 (1.5-4.5); MEAN CORPUSCULAR HGB CONC 30.7 g/dl (32.0-36.5); MEAN CORPUSCULAR VOLUME 94.4 fl (80.0-96.0); MONO # 0.7 K/mm3 (0.0-0.8); MONO % 7.6 % (0.0-5.0); NEUTROPHILS # 5.9 K/mm3 (1.8-7.7); NEUTROPHILS % 68.4 % (36.0-66.0); PLATELET COUNT, AUTOMATED 744 k/mm3 (150-450); RED CELL DISTRIBUTION WIDTH 14.3 % (11.5-14.5); WHITE BLOOD COUNT 8.7 K/mm3 (4.0-10.0)
[2016-09-14 14:52] LABS: ANION GAP 8 MEQ/L (8-16); BLOOD UREA NITROGEN 19 MG/DL (7-18); CALCIUM LEVEL 8.6 MG/DL (8.8-10.2); CARBON DIOXIDE LEVEL 27 MEQ/L (21-32); CHLORIDE LEVEL 108 MEQ/L (98-107); CREATININE FOR GFR 1.17 MG/DL (0.70-1.30); GLOMERULAR FILTRATION RATE > 60.0 (>42); GLUCOSE, FASTING 155 MG/DL (83-110); POTASSIUM SERUM 4.4 MEQ/L (3.5-5.1); SODIUM LEVEL 143 MEQ/L (136-145)
[2016-09-14 15:25] LABS: ERYTHROCYTE SEDIMENTATION RATE 116 mm/hr (0-20)
== END | disposition home or self-care (01) ==
LOC: M SHH 14:14
PROVIDERS: ATTEND Internal Medicine Infectious Disease
DX: A41.01 Sepsis due to Methicillin susceptible Staphylococcus aureus (principal)

== ENCOUNTER → 2016-09-21 | Outpatient (REF) | payer MEDICARE, OTHER ==
[2016-09-21 14:48] LABS: BASO % 0.4 % (0.0-1.0); EOS # 0.6 K/mm3 (0.0-0.50); LARGE UNSTAINED CELL # 0.3 K/mm3 (0.0-0.4); LARGE UNSTAINED CELL % 4.1 % (0.0-4.0); LYMPH # 1.4 K/mm3 (1.5-4.5); LYMPH % 16.7 % (24.0-44.0); MEAN CORPUSCULAR HEMOGLOBIN 29.3 pg (27.0-33.0); MEAN CORPUSCULAR HGB CONC 31.5 g/dl (32.0-36.5); MONO # 0.8 K/mm3 (0.0-0.8); MONO % 9.8 % (0.0-5.0); NEUTROPHILS # 5.2 K/mm3 (1.8-7.7); PLATELET COUNT, AUTOMATED 474 k/mm3 (150-450); RED CELL DISTRIBUTION WIDTH 14.7 % (11.5-14.5); WHITE BLOOD COUNT 8.4 K/mm3 (4.0-10.0)
[2016-09-21 15:07] LABS: ANION GAP 8 MEQ/L (8-16); BLOOD UREA NITROGEN 14 MG/DL (7-18); CALCIUM LEVEL 8.4 MG/DL (8.8-10.2); CARBON DIOXIDE LEVEL 26 MEQ/L (21-32); CHLORIDE LEVEL 109 MEQ/L (98-107); CREATININE FOR GFR 1.09 MG/DL (0.70-1.30); GLOMERULAR FILTRATION RATE > 60.0 (>42); GLUCOSE, FASTING 90 MG/DL (83-110); POTASSIUM SERUM 4.4 MEQ/L (3.5-5.1); SODIUM LEVEL 143 MEQ/L (136-145)
[2016-09-21 15:21] LABS: ERYTHROCYTE SEDIMENTATION RATE 106 mm/hr (0-20)
== END | disposition home or self-care (01) ==
LOC: M SHH 14:33
PROVIDERS: ATTEND Internal Medicine Infectious Disease
DX: A41.01 Sepsis due to Methicillin susceptible Staphylococcus aureus (principal)

== ENCOUNTER → 2016-09-28 | Outpatient (REF) | payer MEDICARE, OTHER ==
[2016-09-28 14:09] LABS: BASO % 0.6 % (0.0-1.0); EOS # 0.9 K/mm3 (0.0-0.50); EOS % 12.2 % (0.0-3.0); LARGE UNSTAINED CELL # 0.2 K/mm3 (0.0-0.4); LARGE UNSTAINED CELL % 3.2 % (0.0-4.0); LYMPH % 13.1 % (24.0-44.0); MEAN CORPUSCULAR VOLUME 93.3 fl (80.0-96.0); MONO # 0.7 K/mm3 (0.0-0.8); MONO % 9.1 % (0.0-5.0); NEUTROPHILS # 4.7 K/mm3 (1.8-7.7); NEUTROPHILS % 61.7 % (36.0-66.0); PLATELET COUNT, AUTOMATED 333 k/mm3 (150-450); WHITE BLOOD COUNT 7.6 K/mm3 (4.0-10.0)
[2016-09-28 14:26] LABS: ERYTHROCYTE SEDIMENTATION RATE 77 mm/hr (0-20)
[2016-09-28 14:38] LABS: ANION GAP 10 MEQ/L (8-16); BLOOD UREA NITROGEN 11 MG/DL (7-18); CALCIUM LEVEL 8.1 MG/DL (8.8-10.2); CARBON DIOXIDE LEVEL 24 MEQ/L (21-32); CHLORIDE LEVEL 108 MEQ/L (98-107); CREATININE FOR GFR 1.12 MG/DL (0.70-1.30); GLOMERULAR FILTRATION RATE > 60.0 (>42); GLUCOSE, FASTING 176 MG/DL (83-110); POTASSIUM SERUM 3.9 MEQ/L (3.5-5.1); SODIUM LEVEL 142 MEQ/L (136-145)
== END ==
LOC: M SHH 13:42
PROVIDERS: ATTEND Internal Medicine Infectious Disease
DX: A41.2 Sepsis due to unspecified staphylococcus (principal)

== ENCOUNTER → 2016-10-18 | Outpatient (REF) | payer MEDICARE, OTHER ==
[2016-10-18 13:24] LABS: BASO % 0.4 % (0.0-1.0); EOS # 0.7 K/mm3 (0.0-0.50); EOS % 6.4 % (0.0-3.0); LARGE UNSTAINED CELL # 0.2 K/mm3 (0.0-0.4); LARGE UNSTAINED CELL % 1.9 % (0.0-4.0); LYMPH # 1.6 K/mm3 (1.5-4.5); LYMPH % 14.6 % (24.0-44.0); MEAN CORPUSCULAR HEMOGLOBIN 29.1 pg (27.0-33.0); MEAN CORPUSCULAR HGB CONC 30.8 g/dl (32.0-36.5); MEAN CORPUSCULAR VOLUME 94.5 fl (80.0-96.0); MONO # 0.9 K/mm3 (0.0-0.8); MONO % 8.2 % (0.0-5.0); NEUTROPHILS # 7.3 K/mm3 (1.8-7.7); NEUTROPHILS % 68.7 % (36.0-66.0); PLATELET COUNT, AUTOMATED 496 k/mm3 (150-450); RED CELL DISTRIBUTION WIDTH 14.9 % (11.5-14.5); WHITE BLOOD COUNT 10.6 K/mm3 (4.0-10.0)
[2016-10-18 13:57] LABS: ERYTHROCYTE SEDIMENTATION RATE 126 mm/hr (0-20)
== END ==
LOC: M SFHCPLAZ 11:16
PROVIDERS: ATTEND Internal Medicine Infectious Disease
DX: A41.01 Sepsis due to Methicillin susceptible Staphylococcus aureus (principal)
CPT/HCPCS: 36415; 85025; 85652; 86140; G0463

== ENCOUNTER → 2016-10-19 | Outpatient (CLI) | payer MEDICARE, OTHER ==
[2016-10-19 17:30] LABS: BASO % 0.4 % (0.0-1.0); EOS # 0.7 K/mm3 (0.0-0.50); EOS % 6.4 % (0.0-3.0); LARGE UNSTAINED CELL # 0.2 K/mm3 (0.0-0.4); LARGE UNSTAINED CELL % 1.9 % (0.0-4.0); LYMPH # 1.9 K/mm3 (1.5-4.5); LYMPH % 17.1 % (24.0-44.0); MEAN CORPUSCULAR HEMOGLOBIN 29.6 pg (27.0-33.0); MEAN CORPUSCULAR HGB CONC 31.5 g/dl (32.0-36.5); MEAN CORPUSCULAR VOLUME 94.2 fl (80.0-96.0); MONO # 0.8 K/mm3 (0.0-0.8); MONO % 7.3 % (0.0-5.0); NEUTROPHILS # 7.3 K/mm3 (1.8-7.7); NEUTROPHILS % 66.9 % (36.0-66.0); PLATELET COUNT, AUTOMATED 508 k/mm3 (150-450); RED CELL DISTRIBUTION WIDTH 14.9 % (11.5-14.5)
[2016-10-19 17:34] LABS: ANION GAP 8 MEQ/L (8-16); BLOOD UREA NITROGEN 13 MG/DL (7-18); CALCIUM LEVEL 8.3 MG/DL (8.8-10.2); CARBON DIOXIDE LEVEL 26 MEQ/L (21-32); CHLORIDE LEVEL 109 MEQ/L (98-107); CREATININE FOR GFR 1.07 MG/DL (0.70-1.30); GLOMERULAR FILTRATION RATE > 60.0 (>42); GLUCOSE, FASTING 99 MG/DL (83-110); POTASSIUM SERUM 4.2 MEQ/L (3.5-5.1); SODIUM LEVEL 143 MEQ/L (136-145)
== END ==
LOC: M WUC 13:54
PROVIDERS: ATTEND Internal Medicine Rheumatology
DX: L40.59 Other psoriatic arthropathy (principal); Z79.899 Other long term (current) drug therapy

== ENCOUNTER → 2016-10-23 | Outpatient (REF) | payer MEDICARE, OTHER ==
[2016-10-23 15:33] LABS: ALBUMIN 2.8 GM/DL (3.2-5.2); ALBUMIN/GLOBULIN RATIO 0.57 (1.00-1.93); ALKALINE PHOSPHATASE 72 U/L (45-117); ALT/SGPT 12 U/L (12-78); AST/SGOT 12 U/L (15-37); BILIRUBIN,DIRECT < 0.1 MG/DL (0.0-0.2); BILIRUBIN,TOTAL 0.4 MG/DL (0.2-1.0); TOTAL PROTEIN 7.7 GM/DL (6.4-8.2)
== END ==
LOC: M LABDRAWP 15:09
PROVIDERS: ATTEND Internal Medicine Rheumatology
DX: Z51.81 Encounter for therapeutic drug level monitoring (principal); Z79.899 Other long term (current) drug therapy; L40.59 Other psoriatic arthropathy

== ENCOUNTER → 2016-10-23 | Outpatient (REF) | payer MEDICARE, OTHER ==
[2016-10-23 15:29] LABS: BASO % 0.4 % (0.0-1.0); EOS # 0.8 K/mm3 (0.0-0.50); EOS % 6.9 % (0.0-3.0); LARGE UNSTAINED CELL # 0.2 K/mm3 (0.0-0.4); LARGE UNSTAINED CELL % 1.4 % (0.0-4.0); LYMPH % 15.3 % (24.0-44.0); MEAN CORPUSCULAR HGB CONC 31.8 g/dl (32.0-36.5); MEAN CORPUSCULAR VOLUME 94.4 fl (80.0-96.0); MONO % 8.7 % (0.0-5.0); NEUTROPHILS % 67.3 % (36.0-66.0); PLATELET COUNT, AUTOMATED 441 k/mm3 (150-450); RED CELL DISTRIBUTION WIDTH 14.5 % (11.5-14.5); WHITE BLOOD COUNT 11.9 K/mm3 (4.0-10.0)
[2016-10-23 16:09] LABS: ERYTHROCYTE SEDIMENTATION RATE 106 mm/hr (0-20)
== END ==
LOC: M LABDRAWP 15:11
PROVIDERS: ATTEND Internal Medicine Infectious Disease
DX: A41.01 Sepsis due to Methicillin susceptible Staphylococcus aureus (principal)

== ENCOUNTER → 2016-10-24 | Outpatient (CLI) | payer MEDICARE, OTHER ==
--- NOTE | 2016-10-24 10:29 | REP ---
Clinical: Pain. Technique: AP, lateral, bilateral oblique and sunrise views of the right and left knee. Comparison: 04/15/2012. Findings: Moderate tricompartmental changes including increase sclerosis to the tibial plateau and posterior margin of the patella with associated medial and patellofemoral joint space narrowing. Subtle cortical irregularities and early spurring/osteophyte formation along the margins of the joint identified bilaterally (left greater than right). No effusion. No evidence for acute fracture or dislocation. Impression: Moderate bilateral tricompartmental degenerative changes minimally more prominent of the left knee. Signed by Demetrius Delcid MD 10/24/2016 10:20 A
== END ==
LOC: M WUC 09:06
PROVIDERS: ATTEND Internal Medicine Rheumatology
DX: M25.561 Pain in right knee (principal); M17.0 Bilateral primary osteoarthritis of knee

== ENCOUNTER → 2016-10-30 | Outpatient (CLI) | payer MEDICARE, BC, OTHER ==
--- NOTE | 2016-10-30 19:38 | ECHO ---
DATE OF PROCEDURE: 10/30/2016 REFERRING PHYSICIAN: Dr. Lemos INDICATIONS: Methicillin susceptible Staphylococcus aureus septicemia. HEIGHT: 165 cm WEIGHT: 68 kg DIMENSIONS: IVS: 1.2 LV: 3.7 LVPW: 1.1 LA: 3.4 Aorta: 3.2 Mitral E velocity 56.3 cm/sec. E-prime septal velocity 6.0 cm/sec E-prime lateral velocity 7.9 cm/sec FINDINGS: Study is of excellent technical quality. Left ventricle is normal size and systolic function with estimated ejection fraction (EF) approximately 60-65% . Right ventricle is also of normal size and systolic function. Both atria appear normal. Aortic valve is tricuspid. It appears normal. I do not appreciate any distinct vegetations. Mitral valve also appears normal. Same applies for tricuspid and pulmonic valve. No pericardial effusion is noted. Inferior vena cava is normal size. Aortic root and aortic arch appear normal. Abdominal aorta was not well seen. Doppler interrogation reveals no aortic stenosis and mild insufficiency. There is also mild mitral insufficiency and no tricuspid and trace pulmonic insufficiency. Mitral inflow pattern and tissue Doppler imaging of mitral annulus reveal grade 1 diastolic dysfunction. CONCLUSIONS: 1. Study is of excellent technical quality. 2. Normal left ventricle (LV) size and systolic function, grade 1 diastolic dysfunction. 3. Trace aortic insufficiency. 4. Mild mitral insufficiency. 5. Trace pulmonic insufficiency under COMMENTS: No obvious vegetation is seen. Subacute bacterial endocarditis (SBE) prophylaxis is not recommended. If very high clinical suspicion for bacterial endocarditis is present, then transesophageal echocardiogram will provide more anatomical details. Compared to echocardiogram from 09/03/2016, there is no significant change. [facility]
== END ==
LOC: M CARPUL 09:28
PROVIDERS: ATTEND Internal Medicine Infectious Disease
DX: A41.01 Sepsis due to Methicillin susceptible Staphylococcus aureus (principal)

== ENCOUNTER → 2016-11-26 | Outpatient (CLI) | payer MEDICARE, BC, OTHER ==
[2016-11-26 18:25] LABS: ALBUMIN 3.1 GM/DL (3.2-5.2); ALBUMIN/GLOBULIN RATIO 0.76 (1.00-1.93); ALKALINE PHOSPHATASE 68 U/L (45-117); ALT/SGPT 16 U/L (12-78); ANION GAP 7 MEQ/L (8-16); AST/SGOT 10 U/L (15-37); BILIRUBIN,TOTAL 0.2 MG/DL (0.2-1.0); BLOOD UREA NITROGEN 18 MG/DL (7-18); CALCIUM LEVEL 8.1 MG/DL (8.8-10.2); CARBON DIOXIDE LEVEL 27 MEQ/L (21-32); CHLORIDE LEVEL 110 MEQ/L (98-107); CREATININE FOR GFR 1.16 MG/DL (0.70-1.30); GLOMERULAR FILTRATION RATE > 60.0 (>42); GLUCOSE, FASTING 105 MG/DL (83-110); POTASSIUM SERUM 4.2 MEQ/L (3.5-5.1); SODIUM LEVEL 144 MEQ/L (136-145); TOTAL PROTEIN 7.2 GM/DL (6.4-8.2)
[2016-11-26 18:44] LABS: BASO % 0.1 % (0.0-1.0); EOS # 0.2 K/mm3 (0.0-0.50); EOS % 1.5 % (0.0-3.0); LARGE UNSTAINED CELL # 0.1 K/mm3 (0.0-0.4); LARGE UNSTAINED CELL % 0.6 % (0.0-4.0); LYMPH # 1.1 K/mm3 (1.5-4.5); LYMPH % 7.9 % (24.0-44.0); MEAN CORPUSCULAR HEMOGLOBIN 27.5 pg (27.0-33.0); MEAN CORPUSCULAR VOLUME 91.7 fl (80.0-96.0); MONO # 0.6 K/mm3 (0.0-0.8); MONO % 4.7 % (0.0-5.0); NEUTROPHILS # 11.4 K/mm3 (1.8-7.7); NEUTROPHILS % 85.2 % (36.0-66.0); PLATELET COUNT, AUTOMATED 360 k/mm3 (150-450); RED CELL DISTRIBUTION WIDTH 15.6 % (11.5-14.5); WHITE BLOOD COUNT 13.4 K/mm3 (4.0-10.0)
[2016-11-26 19:33] LABS: ERYTHROCYTE SEDIMENTATION RATE 70 mm/hr (0-20)
== END ==
LOC: M WUC 10:58
PROVIDERS: ATTEND Internal Medicine Rheumatology
DX: Z51.81 Encounter for therapeutic drug level monitoring (principal); Z79.899 Other long term (current) drug therapy; L40.59 Other psoriatic arthropathy

== ENCOUNTER → 2017-01-10 | Outpatient (CLI) | payer MEDICARE, BC, OTHER ==
[2017-01-10 17:27] LABS: ALBUMIN 3.6 GM/DL (3.2-5.2); ALT/SGPT 18 U/L (12-78); BLOOD UREA NITROGEN 16 MG/DL (7-18); GLOMERULAR FILTRATION RATE > 60.0 (>42)
[2017-01-10 17:58] LABS: BASO % 0.2 % (0.0-1.0); EOS # 0.1 K/mm3 (0.0-0.50); EOS % 0.8 % (0.0-3.0); LARGE UNSTAINED CELL # 0.1 K/mm3 (0.0-0.4); LARGE UNSTAINED CELL % 1.2 % (0.0-4.0); LYMPH # 1.3 K/mm3 (1.5-4.5); LYMPH % 11.5 % (24.0-44.0); MEAN CORPUSCULAR HEMOGLOBIN 27.1 pg (27.0-33.0); MEAN CORPUSCULAR HGB CONC 30.2 g/dl (32.0-36.5); MEAN CORPUSCULAR VOLUME 89.8 fl (80.0-96.0); MONO # 0.6 K/mm3 (0.0-0.8); MONO % 5.1 % (0.0-5.0); NEUTROPHILS % 81.2 % (36.0-66.0); PLATELET COUNT, AUTOMATED 484 k/mm3 (150-450); RED CELL DISTRIBUTION WIDTH 16.8 % (11.5-14.5)
[2017-01-10 19:06] LABS: ERYTHROCYTE SEDIMENTATION RATE 62 mm/hr (0-20)
== END ==
LOC: M WUC 11:44
PROVIDERS: ATTEND Internal Medicine Rheumatology
DX: Z51.81 Encounter for therapeutic drug level monitoring (principal); Z79.899 Other long term (current) drug therapy; L40.59 Other psoriatic arthropathy

== ENCOUNTER → 2017-02-11 | Outpatient (CLI) | payer MEDICARE, BC, OTHER ==
[~2017-02-11] MED LIST changes: -FOLI1TAB2 PO; +FOLI1TAB4 PO; +NICO1KIT TD; -[UNRECOGNIZED DRUG - OTHER] TD
[2017-02-11 19:14] LABS: BASO % 0.3 % (0.0-1.0); EOS # 0.1 K/mm3 (0.0-0.50); EOS % 0.7 % (0.0-3.0); LARGE UNSTAINED CELL # 0.1 K/mm3 (0.0-0.4); MEAN CORPUSCULAR HEMOGLOBIN 25.9 pg (27.0-33.0); MEAN CORPUSCULAR HGB CONC 30.4 g/dl (32.0-36.5); MONO # 0.3 K/mm3 (0.0-0.8); MONO % 2.7 % (0.0-5.0); NEUTROPHILS # 10.6 K/mm3 (1.8-7.7); NEUTROPHILS % 87.3 % (36.0-66.0); PLATELET COUNT, AUTOMATED 425 k/mm3 (150-450); RED CELL DISTRIBUTION WIDTH 17.4 % (11.5-14.5); WHITE BLOOD COUNT 12.2 K/mm3 (4.0-10.0)
[2017-02-11 19:27] LABS: ALBUMIN 3.4 GM/DL (3.2-5.2); ALBUMIN/GLOBULIN RATIO 0.85 (1.00-1.93); BILIRUBIN,TOTAL 0.2 MG/DL (0.2-1.0); CALCIUM LEVEL 8.6 MG/DL (8.8-10.2); CREATININE FOR GFR 1.27 MG/DL (0.70-1.30); POTASSIUM SERUM 4.5 MEQ/L (3.5-5.1); TOTAL PROTEIN 7.4 GM/DL (6.4-8.2)
== END ==
LOC: M WUC 12:36
PROVIDERS: ATTEND Internal Medicine Rheumatology
DX: Z51.81 Encounter for therapeutic drug level monitoring (principal); Z79.899 Other long term (current) drug therapy; M05.79 Rheumatoid arthritis with rheumatoid factor of multiple sites without organ or systems involvement

== ENCOUNTER → 2017-03-14 | Outpatient (CLI) | payer MEDICARE, BC, OTHER ==
--- NOTE | 2017-03-14 10:33 | REP ---
LUMBAR SPINE, FIVE VIEWS: HISTORY: Osteoporosis. COMPARISON: 08/30/2016 There is no acute fracture. The intervertebral discs are decreased in height consistent with disc degeneration. Osteophytes are present throughout the lumbar spine. There is narrowing of the L5-S1 facet joints. There are 3 mm of grade 1 spondylolisthesis of L4 on L5. There are old fractures of the right T11 and T12 ribs. IMPRESSION: Degenerative change as described above. Signed by Brennen Monzon MD 03/14/2017 10:41 A
--- NOTE | 2017-03-14 10:45 | REP ---
RIGHT HIP, TWO VIEWS: HISTORY: Osteoporosis. COMPARISON: 08/30/2016. There is no acute fracture or dislocation. There is narrowing of the joint space with associated osteophyte formation. IMPRESSION: Degenerative change as described above. LEFT HIP, TWO VIEWS: There is no acute fracture or dislocation. There is narrowing of the joint space with associated osteophyte formation. IMPRESSION: Degenerative change as described above. Signed by Brennen Monzon MD 03/14/2017 10:49 A
== END ==
LOC: M WUC 09:19
PROVIDERS: ATTEND Internal Medicine Rheumatology
DX: M81.0 Age-related osteoporosis without current pathological fracture (principal); M16.0 Bilateral primary osteoarthritis of hip; M43.16 Spondylolisthesis, lumbar region; M25.78 Osteophyte, vertebrae

== ENCOUNTER → 2017-03-15 | Outpatient (CLI) | payer MEDICARE, BC, OTHER ==
[2017-03-15 14:10] LABS: ALBUMIN 3.3 GM/DL (3.2-5.2); ALT/SGPT 15 U/L (12-78); ANION GAP 6 MEQ/L (8-16); BLOOD UREA NITROGEN 19 MG/DL (7-18); CALCIUM LEVEL 8.3 MG/DL (8.8-10.2); CARBON DIOXIDE LEVEL 26 MEQ/L (21-32); CHLORIDE LEVEL 112 MEQ/L (98-107); CREATININE FOR GFR 1.11 MG/DL (0.70-1.30); GLOMERULAR FILTRATION RATE > 60.0 (>42); GLUCOSE, FASTING 103 MG/DL (83-110); POTASSIUM SERUM 4.4 MEQ/L (3.5-5.1); SODIUM LEVEL 144 MEQ/L (136-145)
[2017-03-15 14:15] LABS: BASO % 0.3 % (0.0-1.0); EOS # 0.2 K/mm3 (0.0-0.50); EOS % 2.6 % (0.0-3.0); LARGE UNSTAINED CELL # 0.1 K/mm3 (0.0-0.4); LARGE UNSTAINED CELL % 0.8 % (0.0-4.0); LYMPH # 1.5 K/mm3 (1.5-4.5); LYMPH % 15.9 % (24.0-44.0); MEAN CORPUSCULAR HEMOGLOBIN 26.1 pg (27.0-33.0); MEAN CORPUSCULAR HGB CONC 30.4 g/dl (32.0-36.5); MEAN CORPUSCULAR VOLUME 85.9 fl (80.0-96.0); MONO # 0.7 K/mm3 (0.0-0.8); MONO % 7.1 % (0.0-5.0); NEUTROPHILS # 6.7 K/mm3 (1.8-7.7); NEUTROPHILS % 73.3 % (36.0-66.0); PLATELET COUNT, AUTOMATED 400 k/mm3 (150-450); RED CELL DISTRIBUTION WIDTH 18.7 % (11.5-14.5); WHITE BLOOD COUNT 9.1 K/mm3 (4.0-10.0)
[2017-03-15 14:52] LABS: ERYTHROCYTE SEDIMENTATION RATE 70 mm/hr (0-20)
== END ==
LOC: M WUC 08:44
PROVIDERS: ATTEND Internal Medicine Rheumatology
DX: E11.9 Type 2 diabetes mellitus without complications (principal); L40.59 Other psoriatic arthropathy; Z79.899 Other long term (current) drug therapy; M81.0 Age-related osteoporosis without current pathological fracture

== ENCOUNTER → 2017-04-12 | Outpatient (CLI) | payer MEDICARE, BC, OTHER ==
[2017-04-12 09:26] LABS: BASO % 0.4 % (0.0-1.0); EOS # 0.3 K/mm3 (0.0-0.50); EOS % 3.6 % (0.0-3.0); LARGE UNSTAINED CELL # 0.2 K/mm3 (0.0-0.4); LARGE UNSTAINED CELL % 1.9 % (0.0-4.0); LYMPH # 1.1 K/mm3 (1.5-4.5); LYMPH % 13.8 % (24.0-44.0); MEAN CORPUSCULAR HEMOGLOBIN 25.9 pg (27.0-33.0); MEAN CORPUSCULAR HGB CONC 30.6 g/dl (32.0-36.5); MEAN CORPUSCULAR VOLUME 84.7 fl (80.0-96.0); MONO # 0.5 K/mm3 (0.0-0.8); MONO % 6.4 % (0.0-5.0); NEUTROPHILS # 6.1 K/mm3 (1.8-7.7); NEUTROPHILS % 73.9 % (36.0-66.0); PLATELET COUNT, AUTOMATED 387 k/mm3 (150-450); RED CELL DISTRIBUTION WIDTH 18.3 % (11.5-14.5); WHITE BLOOD COUNT 8.2 K/mm3 (4.0-10.0)
[2017-04-12 09:38] LABS: ALBUMIN 3.3 GM/DL (3.2-5.2); ALT/SGPT 18 U/L (12-78); BLOOD UREA NITROGEN 18 MG/DL (7-18); CREATININE FOR GFR 1.12 MG/DL (0.70-1.30); GLOMERULAR FILTRATION RATE > 60.0 (>42)
[2017-04-12 10:00] LABS: ERYTHROCYTE SEDIMENTATION RATE 62 mm/hr (0-20)
== END ==
LOC: M WUC 08:04
PROVIDERS: ATTEND Internal Medicine Rheumatology
DX: L40.59 Other psoriatic arthropathy (principal); Z79.899 Other long term (current) drug therapy

== ENCOUNTER → 2017-05-09 | Outpatient (CLI) | payer MEDICARE, BC, OTHER | LOC: M WUC 11:34 | PROVIDERS: ATTEND Internal Medicine Rheumatology | DX: R53.83 Other fatigue (principal); M06.09 Rheumatoid arthritis without rheumatoid factor, multiple sites; Z51.81 Encounter for therapeutic drug level monitoring; Z79.899 Other long term (current) drug therapy; D64.9 Anemia, unspecified ==

== ENCOUNTER → 2017-05-09 | Outpatient (CLI) | payer MEDICARE, BC, OTHER ==
[2017-05-09 17:36] LABS: FERRITIN 16 NG/ML (26-388); PERCENT SATURATION 24.4 % (19.7-50.0); TOTAL IRON BINDING CAPACITY 398 UG/DL (250-450)
[2017-05-09 17:38] LABS: FOLATE > 24.0 NG/ML (>5.4); VITAMIN B12 LEVEL 345 PG/ML (247-911)
[2017-05-09 17:46] LABS: RETIC HEMOGLOBIN EQUIVALENT 26.6 pg (24-36)
== END ==
LOC: M WUC 11:38
PROVIDERS: ATTEND Family Medicine
DX: D64.9 Anemia, unspecified (principal)

== ENCOUNTER → 2017-06-14 | Outpatient (CLI) | payer MEDICARE, BC, OTHER ==
[2017-06-14 12:33] LABS: BASO # 0.1 10^3/uL (0.0-0.2); BASO % 0.4 % (0.0-1.0); EOS # 0.3 10^3/uL (0.0-0.50); EOS % 2.3 % (0.0-3.0); IMMATURE GRANULOCYTE % 0.6 % (0-0); LYMPH # 1.6 10^3/uL (1.5-4.5); MEAN CORPUSCULAR HEMOGLOBIN 26.4 pg (27.0-33.0); MEAN CORPUSCULAR HGB CONC 29.9 g/dl (32.0-36.5); MEAN CORPUSCULAR VOLUME 88.3 fl (80.0-96.0); MONO # 1.2 10^3/uL (0.0-0.8); MONO % 8.7 % (0.0-5.0); NEUTROPHILS # 10.1 10^3/uL (1.8-7.7); PLATELET COUNT, AUTOMATED 362 10^3/uL (150-450); RED CELL DISTRIBUTION WIDTH 21.2 % (11.5-14.5); WHITE BLOOD COUNT 13.2 10^3/uL (4.0-10.0)
[2017-06-14 12:43] LABS: ALBUMIN 3.5 GM/DL (3.2-5.2); BLOOD UREA NITROGEN 15 MG/DL (7-18); CREATININE FOR GFR 1.07 MG/DL (0.70-1.30); GLOMERULAR FILTRATION RATE > 60.0 (>42)
[2017-06-14 13:22] LABS: ERYTHROCYTE SEDIMENTATION RATE 51 mm/hr (0-20)
== END ==
LOC: M WUC 09:40
PROVIDERS: ATTEND Internal Medicine Rheumatology
DX: Z51.81 Encounter for therapeutic drug level monitoring (principal); Z79.899 Other long term (current) drug therapy; L40.59 Other psoriatic arthropathy

== ENCOUNTER → 2017-07-05 | Outpatient (REF) | payer MEDICARE, OTHER ==
[2017-07-05 14:52] LABS: RETIC HEMOGLOBIN EQUIVALENT 30.5 pg (24-36); RETICULOCYTE % 1.3 % (0.5-1.5)
[2017-07-05 14:56] LABS: REASON FOR REVIEW COMPREHENSIVE REVIEW
[2017-07-05 15:07] LABS: FERRITIN 16 NG/ML (26-388); PERCENT SATURATION 31.9 % (19.7-50.0); TOTAL IRON BINDING CAPACITY 427 UG/DL (250-450); TOTAL PROTEIN 7.6 GM/DL (6.4-8.2)
[2017-07-05 15:11] LABS: VITAMIN B12 LEVEL 345 PG/ML (247-911)
[2017-07-05 16:42] LABS: PRETREATED FOLATE FOR RBCFOL 19.6 NG/ML
[2017-07-08 14:04] LABS: ALBUMIN 4.14 GM/DL (3.29-5.55); ALBUMIN % 54.5 % (55.8-66.1)
[2017-07-11 00:06] LABS: FREE KAPPA LIGHT CHAINS SERUM 22.2 mg/L (3.3-19.4); FREE LAMBDA LIGHT CHAINS SERUM 16.2 mg/L (5.7-26.3); KAPPA/LAMBDA RATIO SERUM 1.37 (0.26-1.65); SOLUBLE TRANSFERRIN RECEPTOR 34.4 nmol/L (12.2-27.3)
== END ==
LOC: M LAB REF 12:27
PROVIDERS: ATTEND Internal Medicine Medical Oncology
DX: D64.9 Anemia, unspecified (principal)

== ENCOUNTER → 2017-07-19 | Outpatient (CLI) | payer MEDICARE, OTHER ==
[2017-07-19 13:43] LABS: ANION GAP 7 MEQ/L (8-16); BLOOD UREA NITROGEN 20 MG/DL (7-18); CALCIUM LEVEL 8.9 MG/DL (8.8-10.2); CARBON DIOXIDE LEVEL 28 MEQ/L (21-32); CHLORIDE LEVEL 108 MEQ/L (98-107); CREATININE FOR GFR 1.16 MG/DL (0.70-1.30); GLOMERULAR FILTRATION RATE > 60.0 (>42); GLUCOSE, FASTING 101 MG/DL (83-110); POTASSIUM SERUM 4.3 MEQ/L (3.5-5.1); SODIUM LEVEL 143 MEQ/L (136-145)
== END ==
LOC: M WUC 10:21
PROVIDERS: ATTEND Internal Medicine Endocrinology, Diabetes & Metabolism
DX: M85.89 Other specified disorders of bone density and structure, multiple sites (principal)

== ENCOUNTER → 2017-07-19 | Outpatient (CLI) | payer MEDICARE, OTHER ==
--- NOTE | 2017-07-19 12:03 | REP ---
PA and lateral chest: Comparison is 11/15/2015. The lung levy are clear. The cardiac size is normal The addy, mediastinum, and bony thorax are unremarkable. Impression: Negative PA and lateral chest. There is no interval change. Signed by Boyd Hewitt MD 07/19/2017 11:55 A
== END ==
LOC: M WUC 10:12
PROVIDERS: ATTEND Internal Medicine Rheumatology
DX: M35.9 Systemic involvement of connective tissue, unspecified (principal); M85.89 Other specified disorders of bone density and structure, multiple sites

== ENCOUNTER → 2017-08-23 | Outpatient (CLI) | payer MEDICARE, OTHER ==
[2017-08-23 20:41] LABS: BLOOD UREA NITROGEN 19 MG/DL (7-18)
[2017-08-23 20:41] LABS: C REACTIVE PROTEIN QUANTITATIV 0.88 MG/DL (0.00-0.30); CREATININE FOR GFR 1.25 MG/DL (0.70-1.30); GLOMERULAR FILTRATION RATE 59.9 (>42)
[2017-08-23 21:00] LABS: BASO % 0.3 % (0.0-1.0); EOS # 0.1 10^3/uL (0.0-0.50); EOS % 1.2 % (0.0-3.0); HEMATOCRIT 33.6 % (42.0-52.0); HEMOGLOBIN 10.2 g/dl (14.0-18.0); IMMATURE GRANULOCYTE % 0.3 % (0-0); LYMPH # 1.6 10^3/uL (1.5-4.5); LYMPH % 17.6 % (24.0-44.0); MEAN CORPUSCULAR HEMOGLOBIN 27.2 pg (27.0-33.0); MEAN CORPUSCULAR HGB CONC 30.4 g/dl (32.0-36.5); MEAN CORPUSCULAR VOLUME 89.6 fl (80.0-96.0); MONO # 0.8 10^3/uL (0.0-0.8); MONO % 8.9 % (0.0-5.0); NEUTROPHILS # 6.5 10^3/uL (1.8-7.7); NEUTROPHILS % 71.7 % (36.0-66.0); PLATELET COUNT, AUTOMATED 386 10^3/uL (150-450); RED BLOOD COUNT 3.75 10^6/uL (4.30-6.10); RED CELL DISTRIBUTION WIDTH 18.7 % (11.5-14.5)
[2017-08-23 21:23] LABS: ERYTHROCYTE SEDIMENTATION RATE 46 mm/hr (0-20)
== END ==
LOC: M WUC 16:16
DX: L40.59 Other psoriatic arthropathy (principal); Z51.81 Encounter for therapeutic drug level monitoring; Z79.899 Other long term (current) drug therapy; M85.89 Other specified disorders of bone density and structure, multiple sites
CPT/HCPCS: 82040

== ENCOUNTER → 2017-08-23 | Outpatient (CLI) | payer MEDICARE, OTHER ==
[2017-08-23 20:59] LABS: ANION GAP 8 MEQ/L (8-16); BLOOD UREA NITROGEN 20 MG/DL (7-18); CALCIUM LEVEL 8.9 MG/DL (8.8-10.2); CARBON DIOXIDE LEVEL 26 MEQ/L (21-32); CHLORIDE LEVEL 110 MEQ/L (98-107); CREATININE FOR GFR 1.21 MG/DL (0.70-1.30); GLOMERULAR FILTRATION RATE > 60.0 (>42); GLUCOSE, FASTING 92 MG/DL (83-110); POTASSIUM SERUM 4.4 MEQ/L (3.5-5.1); SODIUM LEVEL 144 MEQ/L (136-145)
== END ==
LOC: M WUC 16:12
DX: M85.89 Other specified disorders of bone density and structure, multiple sites (principal)

== ENCOUNTER 2017-08-30 10:05 | Outpatient (CLI) | payer BC, MEDICARE, OTHER ==
[2017-08-30] MEDS: ZOLEDRONIC ACID 5 MG in APPROPRIATE DILUENT 1 EA IV (10:31)
== END 2017-08-30 11:40 | disposition home or self-care (01) ==
LOC: M INFU 10:05
DX: M85.89 Other specified disorders of bone density and structure, multiple sites (principal); Z79.82 Long term (current) use of aspirin; Z79.52 Long term (current) use of systemic steroids; Z79.899 Other long term (current) drug therapy; Z88.2 Allergy status to sulfonamides
CPT/HCPCS: 96365

== ENCOUNTER → 2017-11-07 | Outpatient (REF) | payer MEDICARE, OTHER ==
[2017-11-07 15:48] LABS: ANION GAP 9 MEQ/L (8-16); BLOOD UREA NITROGEN 18 MG/DL (7-18); CALCIUM LEVEL 8.3 MG/DL (8.8-10.2); CARBON DIOXIDE LEVEL 25 MEQ/L (21-32); CHLORIDE LEVEL 110 MEQ/L (98-107); CREATININE FOR GFR 1.29 MG/DL (0.70-1.30); GLOMERULAR FILTRATION RATE 57.8 (>42); GLUCOSE, FASTING 221 MG/DL (70-100); POTASSIUM SERUM 4.4 MEQ/L (3.5-5.1); SODIUM LEVEL 144 MEQ/L (136-145)
== END ==
LOC: M LABDRAW1 14:16
DX: M85.89 Other specified disorders of bone density and structure, multiple sites (principal); M05.70 Rheumatoid arthritis with rheumatoid factor of unspecified site without organ or systems involvement
CPT/HCPCS: 82306

== ENCOUNTER → 2017-11-08 | Outpatient (REF) | payer MEDICARE, OTHER ==
[2017-11-08 14:19] LABS: VITAMIN B12 LEVEL 552 PG/ML (247-911)
[2017-11-08 14:33] LABS: FERRITIN 14 NG/ML (26-388); IRON (FE) 93 UG/DL (65-175); PERCENT SATURATION 20.8 % (19.7-50.0); TOTAL IRON BINDING CAPACITY 447 UG/DL (250-450)
[2017-11-12 00:06] LABS: HOMOCYST(E)INE SERUM 13.6 umol/L (0.0-15.0)
[2017-11-12 00:06] LABS: METHYLMALONIC ACID 270 nmol/L (0-378)
== END ==
LOC: M LAB REF 13:32
DX: D64.9 Anemia, unspecified (principal)
CPT/HCPCS: 83550

== ENCOUNTER → 2018-06-05 | Outpatient (REF) | payer MEDICARE, OTHER ==
[2018-06-05 14:10] LABS: BASO % 0.3 % (0.0-1.0); EOS # 0.3 10^3/uL (0.0-0.50); EOS % 3.6 % (0.0-3.0); HEMOGLOBIN 10.4 g/dl (13.5-17.5); IMMATURE GRANULOCYTE % 0.8 % (0-3.0); LYMPH % 11.3 % (24.0-44.0); MEAN CORPUSCULAR HEMOGLOBIN 28.3 pg (27.0-33.0); MEAN CORPUSCULAR HGB CONC 31.5 g/dl (32.0-36.5); MEAN CORPUSCULAR VOLUME 89.9 fl (80.0-96.0); MONO # 1.4 10^3/uL (0.0-0.8); MONO % 15.6 % (0.0-5.0); NEUTROPHILS # 6.3 10^3/uL (1.8-7.7); NEUTROPHILS % 68.4 % (36.0-66.0); PLATELET COUNT, AUTOMATED 355 10^3/uL (150-450); RED BLOOD COUNT 3.67 10^6/uL (4.30-6.10); RED CELL DISTRIBUTION WIDTH 20.2 % (11.5-14.5); WHITE BLOOD COUNT 9.2 10^3/uL (4.0-10.0)
[2018-06-05 14:21] LABS: ALBUMIN 3.4 GM/DL (3.2-5.2); ALBUMIN/GLOBULIN RATIO 0.87 (1.00-1.93); ALKALINE PHOSPHATASE 85 U/L (45-117); ALT/SGPT 40 U/L (12-78); ANION GAP 7 MEQ/L (8-16); AST/SGOT 28 U/L (7-37); BILIRUBIN,TOTAL 0.3 MG/DL (0.2-1.0); BLOOD UREA NITROGEN 21 MG/DL (7-18); C REACTIVE PROTEIN QUANTITATIV 1.28 MG/DL (0.00-0.30); CALCIUM LEVEL 8.5 MG/DL (8.8-10.2); CARBON DIOXIDE LEVEL 25 MEQ/L (21-32); CHLORIDE LEVEL 112 MEQ/L (98-107); CREATININE FOR GFR 1.14 MG/DL (0.70-1.30); GLOMERULAR FILTRATION RATE > 60.0 (>42); GLUCOSE, FASTING 85 MG/DL (70-100); POTASSIUM SERUM 4.8 MEQ/L (3.5-5.1); SODIUM LEVEL 144 MEQ/L (136-145); TOTAL PROTEIN 7.3 GM/DL (6.4-8.2)
[2018-06-05 14:49] LABS: ERYTHROCYTE SEDIMENTATION RATE 63 mm/hr (0-20)
[2018-06-06 09:30] LABS: HEPATITIS B SURFACE ANTIBODY NEGATIVE (POSITIVE)
[2018-06-06 09:41] LABS: HEPATITIS B SURFACE ANTIGEN NEGATIVE (NEGATIVE)
[2018-06-06 10:09] LABS: HEPATITIS C VIRUS ABY INDEX 0.1 INDEX (<0.8)
[2018-06-07 00:08] LABS: ANTI-SMOOTH MUSCLE ANTIBODY 14 Units (0-19)
[2018-06-07 00:08] LABS: ANA (HEP2) Negative (.); HEPATITIS B CORE ANTIBODY IGG Negative (Negative)
== END ==
LOC: M SFHCLERA 10:20
DX: M06.09 Rheumatoid arthritis without rheumatoid factor, multiple sites (principal)
CPT/HCPCS: 80053

== ENCOUNTER → 2018-06-05 | Outpatient (CLI) | payer MEDICARE, OTHER | LOC: M LRY 10:34 | DX: M19.041 Primary osteoarthritis, right hand (principal); M25.741 Osteophyte, right hand; M19.042 Primary osteoarthritis, left hand; M06.09 Rheumatoid arthritis without rheumatoid factor, multiple sites; R05 Cough | CPT/HCPCS: 71046; 80053 ==

== ENCOUNTER → 2018-09-01 | Outpatient (REF) | payer MEDICARE, OTHER ==
[~2018-09-01] MED LIST changes: +CHLO25TA38 PO; +FOLI1TAB11 PO; -FOLI1TAB4 PO; +HYDROCODONE PO; +METH2.5T48 PO; -METH2.5TA PO; +METH50IN8 IM; +PRED5TA PO; -RAMI10CA PO; +RAMI1CAP26 PO; +VITATAB74 PO
[2018-09-01 19:08] LABS: BASO # 0.1 10^3/uL (0.0-0.2); BASO % 0.6 % (0.0-1.0); EOS # 0.6 10^3/uL (0.0-0.50); EOS % 6.8 % (0.0-3.0); HEMATOCRIT 33.4 % (42.0-52.0); HEMOGLOBIN 10.2 g/dl (13.5-17.5); LYMPH # 1.8 10^3/uL (1.5-4.5); LYMPH % 19.7 % (24.0-44.0); MEAN CORPUSCULAR HEMOGLOBIN 26.9 pg (27.0-33.0); MEAN CORPUSCULAR HGB CONC 30.5 g/dl (32.0-36.5); MEAN CORPUSCULAR VOLUME 88.1 fl (80.0-96.0); MONO # 0.7 10^3/uL (0.0-0.8); MONO % 8.1 % (0.0-5.0); NEUTROPHILS # 5.8 10^3/uL (1.8-7.7); NEUTROPHILS % 64.5 % (36.0-66.0); PLATELET COUNT, AUTOMATED 390 10^3/uL (150-450); RED BLOOD COUNT 3.79 10^6/uL (4.30-6.10)
[2018-09-01 19:09] LABS: ALBUMIN 3.6 GM/DL (3.2-5.2); ALT/SGPT 20 U/L (12-78); BILIRUBIN,TOTAL 0.2 MG/DL (0.2-1.0); BLOOD UREA NITROGEN 17 MG/DL (7-18); C REACTIVE PROTEIN QUANTITATIV 0.72 MG/DL (0.00-0.30); CALCIUM LEVEL 8.5 MG/DL (8.8-10.2); CARBON DIOXIDE LEVEL 24 MEQ/L (21-32); CHLORIDE LEVEL 115 MEQ/L (98-107); CREATININE FOR GFR 1.16 MG/DL (0.70-1.30); GLOMERULAR FILTRATION RATE > 60.0 (>42); GLUCOSE, FASTING 74 MG/DL (70-100); POTASSIUM SERUM 4.6 MEQ/L (3.5-5.1); SODIUM LEVEL 146 MEQ/L (136-145); TOTAL PROTEIN 7.2 GM/DL (6.4-8.2)
[2018-09-01 21:59] LABS: ERYTHROCYTE SEDIMENTATION RATE 52 mm/hr (0-20)
== END ==
LOC: M SFHCPLAZ 14:29
PROVIDERS: ATTEND Internal Medicine Rheumatology
DX: M06.09 Rheumatoid arthritis without rheumatoid factor, multiple sites (principal)
CPT/HCPCS: 36415; 80053; 85025; 85652; 86140; G0463

== ENCOUNTER → 2018-09-11 | Outpatient (CLI) | payer MEDICARE, BC, OTHER ==
--- NOTE | 2018-09-12 10:01 | REP ---
CT CHEST WITHOUT CONTRAST: HISTORY: Shortness of breath. Comparison chest x-ray is from June 05, 2018. CT FINDINGS: There are mild emphysematous changes in the lung apices. There is mild hyperinflation. Minimal interstitial and linear fibrotic changes are seen in the bases bilaterally. There are subpleural interstitial fibrotic areas in the right upper lobe posterolaterally in the right lower lobe. No significant pulmonary nodule is seen. There is a granulomatous calcification in the right lower lobe posteriorly. No pleural or pericardial effusion is seen. Vascular calcification is noted extensively at the coronary arteries. No hilar or mediastinal mass or adenopathy is observed. No extrathoracic mass is seen. There are cysts in the kidneys bilaterally. Normal adrenals are seen. Visualized upper abdominal structures are otherwise unremarkable. No bony destructive lesion is appreciated. IMPRESSION: Evidence of COPD changes with scattered areas of fibrosis. Coronary artery vascular calcification. No acute cardiopulmonary disease seen. Electronically Signed by Evert Romano MD 09/12/2018 03:32 P
== END ==
LOC: M RAD 14:16
PROVIDERS: ATTEND Internal Medicine Rheumatology
DX: R06.09 Other forms of dyspnea (principal)

== ENCOUNTER → 2018-09-25 | Outpatient (CLI) | payer MEDICARE, BC, OTHER ==
--- NOTE | 2018-09-25 08:24 | PFTRPT ---
Height: 65.00 Inches Weight: 148.00 Lbs BSA: 1.74 Diagnosis: R06.02 DATE OF PROCEDURE: 09/25/2018 ORDERED BY: Dr. Naomi Ndiaye Spirometry: Study of excellent technical quality. Forced vital capacity normal. FEV1 in proportion. Obstructive index is, therefore, normal. Flow Volume Loop: Expiratory limb of the flow volume loop is normal. Lung Volumes: Total lung capacity normal. Residual volume is generally in proportion. Diffusing Capacity: Diffusing capacity is significantly reduced but does correct for alveolar volume. Hemoglobin: No hemoglobin available for correction. IMPRESSION: Mild diffusing capacity impairment requires clinical correlation. MTDD
== END ==
LOC: M CARPUL 07:41
PROVIDERS: ATTEND Internal Medicine Rheumatology
DX: R06.02 Shortness of breath (principal)

== ENCOUNTER → 2018-10-10 | Outpatient (CLI) | payer MEDICARE, BC, OTHER ==
[2018-10-10 12:42] LABS: BASO % 0.5 % (0.0-1.0); EOS # 0.5 10^3/uL (0.0-0.50); HEMATOCRIT 33.6 % (42.0-52.0); HEMOGLOBIN 10.2 g/dl (13.5-17.5); LYMPH # 1.4 10^3/uL (1.5-4.5); LYMPH % 18.6 % (24.0-44.0); MEAN CORPUSCULAR HEMOGLOBIN 27.1 pg (27.0-33.0); MEAN CORPUSCULAR HGB CONC 30.4 g/dl (32.0-36.5); MEAN CORPUSCULAR VOLUME 89.1 fl (80.0-96.0); MONO # 0.8 10^3/uL (0.0-0.8); MONO % 9.9 % (0.0-5.0); NEUTROPHILS % 64.6 % (36.0-66.0); PLATELET COUNT, AUTOMATED 299 10^3/uL (150-450); RED BLOOD COUNT 3.77 10^6/uL (4.30-6.10); WHITE BLOOD COUNT 7.7 10^3/uL (4.0-10.0)
[2018-10-10 13:00] LABS: ALBUMIN 3.2 GM/DL (3.2-5.2); BILIRUBIN,TOTAL 0.2 MG/DL (0.2-1.0); C REACTIVE PROTEIN QUANTITATIV 0.48 MG/DL (0.00-0.30); CALCIUM LEVEL 8.2 MG/DL (8.8-10.2); CREATININE FOR GFR 1.45 MG/DL (0.70-1.30); GLOMERULAR FILTRATION RATE 50.4 (>42); POTASSIUM SERUM 4.1 MEQ/L (3.5-5.1); TOTAL PROTEIN 6.9 GM/DL (6.4-8.2)
[2018-10-10 13:52] LABS: ERYTHROCYTE SEDIMENTATION RATE 51 mm/hr (0-20)
== END ==
LOC: M WUC 09:01
PROVIDERS: ATTEND Internal Medicine Rheumatology
DX: M06.09 Rheumatoid arthritis without rheumatoid factor, multiple sites (principal)

== ENCOUNTER → 2018-11-28 | Outpatient (CLI) | payer MEDICARE, BC, OTHER ==
[~2018-11-28] MED LIST changes: -ASPI1TAB PO; +ASPI81TA26 PO
--- NOTE | 2018-12-05 08:20 | SLEEPHOME ---
DATE OF PROCEDURE: 11/28/2018 ORDERED BY: Dr. Villela. Diagnostic home sleep testing was performed due to concern for the obstructive sleep apnea syndrome. For testing, a nocturnal T3 respiratory monitoring device was used. Continuous record was made of pulse, oxygen saturation, airflow, chest and abdominal strain, and body position. 10 hours and 59 minutes of data were reviewed. There were 7 hours and 27 minutes marked as time in bed. During the interval marked time in bed, there were 232 respiratory events identified of 10 seconds in duration or greater for a respiratory event index of 31.1. The events were primarily obstructive though 43 central and mixed apneas were seen. Baseline pulse rate 74 beats per minute, pulse rate ranged from 23 up to 99 beats per minute. Baseline saturation 92%. Saturations fell to 71%. Testing was performed in both the supine and non-supine positions. IMPRESSION: Abnormal home sleep testing with repetitive respiratory events and oxygen desaturations to 71% with a respiratory event index of 31.1 is consistent with the obstructive sleep apnea syndrome. RECOMMENDATION: The patient should be encouraged to undergo formal sleep evaluation and in laboratory pressure titration.
== END ==
LOC: M SLEEP HO 10:08
PROVIDERS: ATTEND Internal Medicine Pulmonary Disease
DX: R40.0 Somnolence (principal)

== ENCOUNTER → 2019-01-01 | Outpatient (CLI) | payer MEDICARE, BC, OTHER ==
--- NOTE | 2019-01-05 16:25 | SLEEPCENT ---
DATE OF PROCEDURE: 01/01/2019 ORDERED BY: Dr. Villela Nocturnal polysomnography was performed for the titration of pressure therapy in this patient with a clinical diagnosis of obstructive sleep apnea syndrome confirmed by home testing revealing a respiratory event index of 31.1. For testing the patient was fit with a ResMed Quattro full-face mask of small size; 4 cm of water pressure were applied to the circuit and the lights were extinguished. 7 hours and 52 minutes of data were reviewed. There were 301 minutes of sleep identified. Sleep latency was mildly prolonged 49 minutes. Rapid eye movement (REM) latency was short at 45 minutes. Sleep architecture was fair with 4 REM cycles noted. There was a period of wake around 2 a.m. resulting in reduced sleep efficiency of 66.4%. The patient's electrocardiogram showed sinus rhythm with an average heart rate of 70 beats per minute. Rate ranged 60-100. Electroencephalogram (EEG) showed some alpha intrusion into non REM stages. Persistence of respiratory events prompted an increase in CPAP pressure from 4 to 8. A brief trial of bilevel pressure was instituted but was not well tolerated. Best sleep was seen on CPAP pressure of 8 cm. Significant limb activity persisted. There were at least 3 trains of 30 events. Limb movement arousal index was 11.7. IMPRESSION: 1. Obstructive sleep apnea syndrome (G47.33). 2. Possible periodic limb movement disorder (G47.61). Limb movement arousal index 11.7. RECOMMENDATIONS: Nightly use of pressure therapy 8 cm of water should be sufficient to address much of the patient's respiratory sleep disruption. Should symptoms persist, interventions to reduce the frequency arousal from limb activity may also be helpful.
== END ==
LOC: M SLEEP 19:33
PROVIDERS: ATTEND Internal Medicine Pulmonary Disease
DX: G47.33 Obstructive sleep apnea (adult) (pediatric) (principal)

== ENCOUNTER → 2019-01-22 | Outpatient (REF) | payer MEDICARE, OTHER | LOC: M SFHCPLAZ 08:20 | PROVIDERS: ATTEND Internal Medicine Rheumatology | DX: M06.09 Rheumatoid arthritis without rheumatoid factor, multiple sites (principal); Z53.8 Procedure and treatment not carried out for other reasons ==

== ENCOUNTER → 2019-02-12 | Outpatient (REF) | payer MEDICARE, OTHER ==
[2019-02-12 13:19] LABS: HEMATOCRIT 32.3 % (42.0-52.0); HEMOGLOBIN 10.1 g/dl (13.5-17.5); MEAN CORPUSCULAR HEMOGLOBIN 29.1 pg (27.0-33.0); MEAN CORPUSCULAR HGB CONC 31.3 g/dl (32.0-36.5); MEAN CORPUSCULAR VOLUME 93.1 fl (80.0-96.0); PLATELET COUNT, AUTOMATED 274 10^3/uL (150-450); RED BLOOD COUNT 3.47 10^6/uL (4.30-6.10); WHITE BLOOD COUNT 7.7 10^3/uL (4.0-10.0)
[2019-02-12 14:37] LABS: ALBUMIN 3.5 GM/DL (3.2-5.2); ALT/SGPT 17 U/L (12-78); BILIRUBIN,DIRECT < 0.1 MG/DL (0.0-0.2); BILIRUBIN,TOTAL 0.1 MG/DL (0.2-1.0); CHOLESTEROL LEVEL 161 MG/DL (<200); CHOLESTEROL RISK RATIO 3.833 (<5); HDL CHOLESTEROL 42 MG/DL (>40); LDL CHOLESTEROL 83 MG/DL (<100); NON-HDL-C 119 MG/DL; TOTAL PROTEIN 7.3 GM/DL (6.4-8.2); TRIGLYCERIDES LEVEL 180 MG/DL (<150)
== END ==
LOC: M SFHCPLAZ 11:39
PROVIDERS: ATTEND Dermatology
DX: Z79.899 Other long term (current) drug therapy (principal)

== ENCOUNTER → 2019-02-26 | Outpatient (CLI) | payer MEDICARE, OTHER ==
[2019-02-26 12:50] LABS: BASO # 0.1 10^3/uL (0.0-0.2); BASO % 0.6 % (0.0-1.0); EOS # 0.4 10^3/uL (0.0-0.50); EOS % 4.3 % (0.0-3.0); HEMATOCRIT 33.2 % (42.0-52.0); HEMOGLOBIN 10.3 g/dl (13.5-17.5); LYMPH # 1.9 10^3/uL (1.5-4.5); LYMPH % 21.4 % (24.0-44.0); MEAN CORPUSCULAR HEMOGLOBIN 27.9 pg (27.0-33.0); MONO # 1.5 10^3/uL (0.0-0.8); MONO % 16.9 % (0.0-5.0); NEUTROPHILS # 4.9 10^3/uL (1.8-7.7); NEUTROPHILS % 56.6 % (36.0-66.0); PLATELET COUNT, AUTOMATED 332 10^3/uL (150-450); RED BLOOD COUNT 3.69 10^6/uL (4.30-6.10); WHITE BLOOD COUNT 8.6 10^3/uL (4.0-10.0)
[2019-02-26 13:23] LABS: ERYTHROCYTE SEDIMENTATION RATE 50 mm/hr (0-20)
[2019-02-26 13:25] LABS: ALBUMIN 3.7 GM/DL (3.2-5.2); BILIRUBIN,TOTAL 0.3 MG/DL (0.2-1.0); C REACTIVE PROTEIN QUANTITATIV 0.56 MG/DL (0.00-0.30); CALCIUM LEVEL 9.4 MG/DL (8.8-10.2); CREATININE FOR GFR 1.34 MG/DL (0.70-1.30); GLOMERULAR FILTRATION RATE 55.2 (>42); POTASSIUM SERUM 4.2 MEQ/L (3.5-5.1); TOTAL PROTEIN 7.7 GM/DL (6.4-8.2)
== END ==
LOC: M WUC 10:43
PROVIDERS: ATTEND Internal Medicine Rheumatology
DX: M06.09 Rheumatoid arthritis without rheumatoid factor, multiple sites (principal)

== ENCOUNTER → 2019-05-22 | Outpatient (CLI) | payer MEDICARE, OTHER ==
[2019-05-22 13:44] LABS: BASO % 0.4 % (0.0-1.0); EOS # 0.4 10^3/uL (0.0-0.5); EOS % 4.3 % (0.0-3.0); HEMATOCRIT 36.4 % (42.0-52.0); HEMOGLOBIN 11.2 g/dl (13.5-17.5); LYMPH # 1.7 10^3/uL (1.5-5.0); LYMPH % 17.6 % (24.0-44.0); MEAN CORPUSCULAR HEMOGLOBIN 28.6 pg (27.0-33.0); MEAN CORPUSCULAR HGB CONC 30.8 g/dl (32.0-36.5); MEAN CORPUSCULAR VOLUME 92.9 fl (80.0-96.0); MONO # 0.9 10^3/uL (0.0-0.8); MONO % 9.3 % (0.0-5.0); NEUTROPHILS # 6.5 10^3/uL (1.5-8.5); NEUTROPHILS % 68.1 % (36.0-66.0); PLATELET COUNT, AUTOMATED 305 10^3/uL (150-450); RED BLOOD COUNT 3.92 10^6/uL (4.30-6.10); WHITE BLOOD COUNT 9.5 10^3/uL (4.0-10.0)
[2019-05-22 14:09] LABS: ALBUMIN 3.8 GM/DL (3.2-5.2); BILIRUBIN,TOTAL 0.3 MG/DL (0.2-1.0); C REACTIVE PROTEIN QUANTITATIV 0.77 MG/DL (0.00-0.30); CALCIUM LEVEL 9.3 MG/DL (8.8-10.2); CREATININE FOR GFR 1.35 MG/DL (0.70-1.30); GLOMERULAR FILTRATION RATE 54.7 (>42); POTASSIUM SERUM 4.4 MEQ/L (3.5-5.1); TOTAL PROTEIN 7.7 GM/DL (6.4-8.2)
[2019-05-22 14:17] LABS: ERYTHROCYTE SEDIMENTATION RATE 41 mm/hr (0-20)
== END ==
LOC: M WUC 10:53
PROVIDERS: ATTEND Internal Medicine Rheumatology
DX: M06.09 Rheumatoid arthritis without rheumatoid factor, multiple sites (principal)

== ENCOUNTER → 2019-07-21 | Outpatient (REF) | payer MEDICARE, OTHER ==
[2019-07-21 12:35] LABS: BASO # 0.1 10^3/uL (0.0-0.2); BASO % 0.8 % (0.0-1.0); EOS # 0.4 10^3/uL (0.0-0.5); EOS % 5.4 % (0.0-3.0); HEMATOCRIT 35.8 % (42.0-52.0); HEMOGLOBIN 11.3 g/dl (13.5-17.5); LYMPH % 26.8 % (24.0-44.0); MEAN CORPUSCULAR HEMOGLOBIN 29.5 pg (27.0-33.0); MEAN CORPUSCULAR HGB CONC 31.6 g/dl (32.0-36.5); MEAN CORPUSCULAR VOLUME 93.5 fl (80.0-96.0); MONO # 0.9 10^3/uL (0.0-0.8); MONO % 11.3 % (0.0-5.0); NEUTROPHILS # 4.2 10^3/uL (1.5-8.5); NEUTROPHILS % 55.4 % (36.0-66.0); PLATELET COUNT, AUTOMATED 305 10^3/uL (150-450); RED BLOOD COUNT 3.83 10^6/uL (4.30-6.10); WHITE BLOOD COUNT 7.6 10^3/uL (4.0-10.0)
[2019-07-21 12:49] LABS: ALBUMIN 3.8 GM/DL (3.2-5.2); ALT/SGPT 26 U/L (12-78); BILIRUBIN,TOTAL 0.6 MG/DL (0.2-1.0); BLOOD UREA NITROGEN 25 MG/DL (7-18); C REACTIVE PROTEIN QUANTITATIV 0.61 MG/DL (0.00-0.30); CALCIUM LEVEL 9.1 MG/DL (8.8-10.2); CARBON DIOXIDE LEVEL 27 MEQ/L (21-32); CHLORIDE LEVEL 108 MEQ/L (98-107); CREATININE FOR GFR 1.55 MG/DL (0.70-1.30); GLOMERULAR FILTRATION RATE 46.5 (>42); GLUCOSE, FASTING 85 MG/DL (70-100); POTASSIUM SERUM 4.3 MEQ/L (3.5-5.1); RHEUMATOID FACTOR QUANT < 10.0 IU/ML (<15.0); SODIUM LEVEL 141 MEQ/L (136-145); TOTAL PROTEIN 7.6 GM/DL (6.4-8.2)
[2019-07-21 13:04] LABS: ERYTHROCYTE SEDIMENTATION RATE 43 mm/hr (0-20)
[2019-07-22 13:26] LABS: HEPATITIS B SURFACE ANTIBODY NEGATIVE (POSITIVE)
[2019-07-22 13:37] LABS: HEPATITIS B SURFACE ANTIGEN NEGATIVE (NEGATIVE)
[2019-07-22 14:05] LABS: HEPATITIS C VIRUS ABY INDEX 0.2 INDEX (<0.8)
[2019-07-24 00:07] LABS: CYCLIC CITRULLINATED PEPTIDE 8 units (0-19); HEPATITIS B CORE ANTIBODY IGG Negative (Negative)
== END ==
LOC: M SFHCRHEU 08:49
PROVIDERS: ATTEND Internal Medicine Rheumatology
DX: M19.90 Unspecified osteoarthritis, unspecified site (principal); J84.112 Idiopathic pulmonary fibrosis
CPT/HCPCS: 36415; 80053; 85025; 85652; 86140; 86200; 86431; 86704; 86706; 86803; 87340; G0463

== ENCOUNTER → 2019-08-07 | Outpatient (CLI) | payer MEDICARE, OTHER ==
--- NOTE | 2019-08-07 08:51 | REP ---
Clinical: Pain. Technique: Single frontal view of the pelvis. Findings: No acute fracture or dislocation is appreciated. Moderate arthritic changes to the bilateral hips includes increased sclerosis to the acetabulae with marginal spurring and joint space narrowing. Impression: Early moderate degenerative changes to the bilateral hips. Electronically Signed by Demetrius Delcid MD 08/07/2019 08:42 A
--- NOTE | 2019-08-07 08:52 | REP ---
Clinical: Pain. Technique: AP and lateral views of the right and left hand. Findings: Osseous structures, joint spaces, and surrounding soft tissues are essentially normal for age. No overt osteoarthritic or inflammatory arthritic changes are appreciated. No acute fracture or dislocation. Impression: Essentially age-appropriate bilateral hand radiographs Electronically Signed by Demetrius Delcid MD 08/07/2019 08:43 A
== END ==
LOC: M WUC 08:19
PROVIDERS: ATTEND Internal Medicine Rheumatology
DX: M19.90 Unspecified osteoarthritis, unspecified site (principal)

== ENCOUNTER → 2019-09-29 | Outpatient (CLI) | payer MEDICARE, BC, OTHER ==
[~2019-09-29] MED LIST changes: +SUCR1ORA PO; -SUCR1SUS PO
--- NOTE | 2019-09-29 08:50 | REP ---
BILATERAL SHOULDER SERIES: Six views. HISTORY: Pain. FINDINGS: Three views of the right shoulder demonstrate glenohumeral and acromioclavicular joint osteoarthritis with spur formation. There is diffuse osteopenia. No acute bony abnormality is seen. Periarticular soft tissues are unremarkable. On the left, there is AC joint and glenohumeral joint osteoarthritic spurring as well. Periarticular soft tissues are unremarkable on the left. 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 Diffuse osteopenia. Electronically Signed by Evert Romano MD 09/29/2019 10:59 A
[2019-09-29 10:09] LABS: BASO % 0.4 % (0.0-1.0); EOS # 0.5 10^3/uL (0.0-0.5); HEMATOCRIT 34.6 % (42.0-52.0); HEMOGLOBIN 10.7 g/dl (13.5-17.5); LYMPH # 3.8 10^3/uL (1.5-5.0); LYMPH % 40.7 % (24.0-44.0); MEAN CORPUSCULAR HEMOGLOBIN 27.6 pg (27.0-33.0); MEAN CORPUSCULAR HGB CONC 30.9 g/dl (32.0-36.5); MEAN CORPUSCULAR VOLUME 89.4 fl (80.0-96.0); MONO # 0.9 10^3/uL (0.0-0.8); MONO % 9.9 % (0.0-5.0); NEUTROPHILS # 4.1 10^3/uL (1.5-8.5); NEUTROPHILS % 43.4 % (36.0-66.0); PLATELET COUNT, AUTOMATED 339 10^3/uL (150-450); RED BLOOD COUNT 3.87 10^6/uL (4.30-6.10); WHITE BLOOD COUNT 9.4 10^3/uL (4.0-10.0)
[2019-09-29 10:19] LABS: ALBUMIN 3.1 GM/DL (3.2-5.2); BILIRUBIN,TOTAL 0.2 MG/DL (0.2-1.0); C REACTIVE PROTEIN QUANTITATIV 1.37 MG/DL (0.00-0.30); CALCIUM LEVEL 8.3 MG/DL (8.8-10.2); CREATININE FOR GFR 1.46 MG/DL (0.70-1.30); GLOMERULAR FILTRATION RATE 49.8 (>42); POTASSIUM SERUM 4.1 MEQ/L (3.5-5.1); TOTAL PROTEIN 7.4 GM/DL (6.4-8.2)
[2019-09-29 10:30] LABS: ERYTHROCYTE SEDIMENTATION RATE 56 mm/hr (0-20)
== END ==
LOC: M WUC 08:18
PROVIDERS: ATTEND Internal Medicine
DX: L40.50 Arthropathic psoriasis, unspecified (principal)

== ENCOUNTER → 2020-01-11 | Outpatient (CLI) | payer MEDICARE, BC, OTHER ==
[2020-01-11 12:50] LABS: BASO % 0.3 % (0.0-1.0); EOS # 0.5 10^3/uL (0.0-0.5); EOS % 6.1 % (0.0-3.0); HEMATOCRIT 32.2 % (42.0-52.0); HEMOGLOBIN 10.1 g/dl (13.5-17.5); LYMPH # 2.6 10^3/uL (1.5-5.0); LYMPH % 29.3 % (24.0-44.0); MEAN CORPUSCULAR HEMOGLOBIN 27.2 pg (27.0-33.0); MEAN CORPUSCULAR HGB CONC 31.4 g/dl (32.0-36.5); MEAN CORPUSCULAR VOLUME 86.8 fl (80.0-96.0); MONO % 11.4 % (0.0-5.0); NEUTROPHILS # 4.6 10^3/uL (1.5-8.5); NEUTROPHILS % 52.4 % (36.0-66.0); PLATELET COUNT, AUTOMATED 307 10^3/uL (150-450); RED BLOOD COUNT 3.71 10^6/uL (4.30-6.10); WHITE BLOOD COUNT 8.7 10^3/uL (4.0-10.0)
[2020-01-11 13:21] LABS: ALBUMIN 3.5 GM/DL (3.2-5.2); ALT/SGPT 23 U/L (12-78); BILIRUBIN,TOTAL 0.2 MG/DL (0.2-1.0); BLOOD UREA NITROGEN 15 MG/DL (7-18); C REACTIVE PROTEIN QUANTITATIV 0.38 MG/DL (0.00-0.30); CALCIUM LEVEL 8.5 MG/DL (8.8-10.2); CARBON DIOXIDE LEVEL 26 MEQ/L (21-32); CHLORIDE LEVEL 111 MEQ/L (98-107); CREATININE FOR GFR 1.22 MG/DL (0.70-1.30); GLOMERULAR FILTRATION RATE > 60.0 (>42); GLUCOSE, FASTING 122 MG/DL (70-100); POTASSIUM SERUM 4.1 MEQ/L (3.5-5.1); SODIUM LEVEL 142 MEQ/L (136-145); TOTAL PROTEIN 7.8 GM/DL (6.4-8.2)
[2020-01-11 14:01] LABS: ERYTHROCYTE SEDIMENTATION RATE 56 mm/hr (0-20)
== END ==
LOC: M WUC 10:30
PROVIDERS: ATTEND Internal Medicine
DX: L40.50 Arthropathic psoriasis, unspecified (principal)

== ENCOUNTER → 2020-02-09 | Outpatient (CLI) | payer MEDICARE, BC, OTHER ==
[2020-02-09 09:46] LABS: BASO % 0.2 % (0.0-1.0); EOS # 0.4 10^3/uL (0.0-0.5); EOS % 4.6 % (0.0-3.0); HEMATOCRIT 29.9 % (42.0-52.0); HEMOGLOBIN 9.1 g/dl (13.5-17.5); LYMPH # 2.5 10^3/uL (1.5-5.0); LYMPH % 30.5 % (24.0-44.0); MEAN CORPUSCULAR HEMOGLOBIN 26.6 pg (27.0-33.0); MEAN CORPUSCULAR HGB CONC 30.4 g/dl (32.0-36.5); MEAN CORPUSCULAR VOLUME 87.4 fl (80.0-96.0); MONO # 0.9 10^3/uL (0.0-0.8); MONO % 11.5 % (0.0-5.0); NEUTROPHILS # 4.2 10^3/uL (1.5-8.5); NEUTROPHILS % 52.5 % (36.0-66.0); PLATELET COUNT, AUTOMATED 255 10^3/uL (150-450); RED BLOOD COUNT 3.42 10^6/uL (4.30-6.10); WHITE BLOOD COUNT 8.1 10^3/uL (4.0-10.0)
[2020-02-09 10:07] LABS: ERYTHROCYTE SEDIMENTATION RATE 52 mm/hr (0-20)
[2020-02-09 10:14] LABS: ALBUMIN 3.3 GM/DL (3.2-5.2); ALT/SGPT 19 U/L (12-78); BILIRUBIN,TOTAL 0.2 MG/DL (0.2-1.0); BLOOD UREA NITROGEN 24 MG/DL (7-18); C REACTIVE PROTEIN QUANTITATIV < 0.30 MG/DL (0.00-0.30); CALCIUM LEVEL 8.5 MG/DL (8.8-10.2); CARBON DIOXIDE LEVEL 23 MEQ/L (21-32); CHLORIDE LEVEL 114 MEQ/L (98-107); CREATININE FOR GFR 1.36 MG/DL (0.70-1.30); GLOMERULAR FILTRATION RATE 54.1 (>42); GLUCOSE, FASTING 96 MG/DL (70-100); POTASSIUM SERUM 4.1 MEQ/L (3.5-5.1); SODIUM LEVEL 145 MEQ/L (136-145); TOTAL PROTEIN 7.6 GM/DL (6.4-8.2)
== END ==
LOC: M WUC 08:24
PROVIDERS: ATTEND Internal Medicine
DX: L40.50 Arthropathic psoriasis, unspecified (principal)

== ENCOUNTER → 2020-06-23 | Outpatient (CLI) | payer MEDICARE, OTHER, BC ==
[2020-06-23 19:47] LABS: PERCENT SATURATION 5.3 % (19.7-50.0)
[2020-06-23 19:56] LABS: FOLATE 21.1 NG/ML
== END ==
LOC: M WUC 15:14
PROVIDERS: ATTEND Family Medicine
DX: D64.9 Anemia, unspecified (principal)

== ENCOUNTER → 2020-06-28 | Outpatient (CLI) | payer MEDICARE, OTHER, BC ==
[2020-06-28 12:19] LABS: BASO % 0.4 % (0.0-1.0); EOS # 0.6 10^3/uL (0.0-0.5); EOS % 6.2 % (0.0-3.0); HEMATOCRIT 26.5 % (42.0-52.0); HEMOGLOBIN 7.7 g/dl (13.5-17.5); LYMPH # 2.3 10^3/uL (1.5-5.0); LYMPH % 23.9 % (24.0-44.0); MEAN CORPUSCULAR HEMOGLOBIN 24.1 pg (27.0-33.0); MEAN CORPUSCULAR HGB CONC 29.1 g/dl (32.0-36.5); MEAN CORPUSCULAR VOLUME 83.1 fl (80.0-96.0); MONO # 1.2 10^3/uL (0.0-0.8); MONO % 12.6 % (0.0-5.0); NEUTROPHILS # 5.3 10^3/uL (1.5-8.5); NEUTROPHILS % 56.1 % (36.0-66.0); PLATELET COUNT, AUTOMATED 369 10^3/uL (150-450); RED BLOOD COUNT 3.19 10^6/uL (4.30-6.10); WHITE BLOOD COUNT 9.4 10^3/uL (4.0-10.0)
== END ==
LOC: M WUC 09:26
PROVIDERS: ATTEND Family Medicine
DX: D64.9 Anemia, unspecified (principal)

== ENCOUNTER → 2020-08-08 | Outpatient (CLI) | payer MEDICARE, OTHER, BC ==
[2020-08-08 13:02] LABS: BASO % 0.4 % (0.0-1.0); EOS # 0.5 10^3/uL (0.0-0.5); EOS % 5.3 % (0.0-3.0); HEMATOCRIT 35.7 % (42.0-52.0); HEMOGLOBIN 10.4 g/dl (13.5-17.5); LYMPH # 2.1 10^3/uL (1.5-5.0); LYMPH % 22.6 % (24.0-44.0); MEAN CORPUSCULAR HEMOGLOBIN 26.4 pg (27.0-33.0); MEAN CORPUSCULAR HGB CONC 29.1 g/dl (32.0-36.5); MEAN CORPUSCULAR VOLUME 90.6 fl (80.0-96.0); MONO % 10.8 % (0.0-5.0); NEUTROPHILS # 5.5 10^3/uL (1.5-8.5); NEUTROPHILS % 60.3 % (36.0-66.0); PLATELET COUNT, AUTOMATED 333 10^3/uL (150-450); RED BLOOD COUNT 3.94 10^6/uL (4.30-6.10); WHITE BLOOD COUNT 9.1 10^3/uL (4.0-10.0)
[2020-08-08 13:29] LABS: ERYTHROCYTE SEDIMENTATION RATE 56 mm/hr (0-20)
[2020-08-08 13:31] LABS: ALBUMIN 3.7 GM/DL (3.2-5.2); ALT/SGPT 24 U/L (12-78); BILIRUBIN,TOTAL 0.2 MG/DL (0.2-1.0); BLOOD UREA NITROGEN 17 MG/DL (7-18); C REACTIVE PROTEIN QUANTITATIV 0.71 MG/DL (0.00-0.30); CALCIUM LEVEL 8.7 MG/DL (8.8-10.2); CARBON DIOXIDE LEVEL 26 MEQ/L (21-32); CHLORIDE LEVEL 112 MEQ/L (98-107); CREATININE FOR GFR 1.35 MG/DL (0.70-1.30); FERRITIN 32 NG/ML (26-388); GLOMERULAR FILTRATION RATE 54.4 (>42); GLUCOSE, FASTING 102 MG/DL (70-100); IRON (FE) 41 UG/DL (65-175); PERCENT SATURATION 10.1 % (19.7-50.0); SODIUM LEVEL 143 MEQ/L (136-145); TOTAL IRON BINDING CAPACITY 405 UG/DL (250-450); TOTAL PROTEIN 7.7 GM/DL (6.4-8.2)
[2020-08-08 13:39] LABS: FOLATE > 24.0 NG/ML; VITAMIN B12 LEVEL 356 PG/ML
[2020-08-09 12:10] LABS: ALBUMIN 4.01 GM/DL (3.29-5.55); ALBUMIN % 52.1 % (55.8-66.1); ALPHA-1-GLOBULIN % 4.2 % (2.9-4.9); ALPHA-1-GLOBULINS 0.32 GM/DL (0.17-0.41); ALPHA-2-GLOBULINS 0.82 GM/DL (0.42-0.99); ALPHA-2-GLOBULINS % 10.7 % (7.1-11.8); BETA-1-GLOBULINS 0.51 GM/DL (0.28-0.60); BETA-1-GLOBULINS % 6.6 % (4.7-7.2); BETA-2-GLOBULINS 0.48 GM/DL (0.19-0.55); BETA-2-GLOBULINS % 6.2 % (3.2-6.5); GAMMA GLOBULIN % 20.2 % (11.1-18.8); GAMMA GLOBULINS 1.56 GM/DL (0.65-1.58)
== END ==
LOC: M WUC 10:36
PROVIDERS: ATTEND Internal Medicine
DX: L40.50 Arthropathic psoriasis, unspecified (principal); D64.9 Anemia, unspecified

== ENCOUNTER → 2020-12-21 | Outpatient (CLI) | payer MEDICARE, OTHER, BC ==
[~2020-12-21] MED LIST changes: -RABE1TAB PO; +RABE1TAB4 PO
[2020-12-21 11:44] LABS: BASO % 0.5 % (0.0-1.0); EOS # 0.4 10^3/uL (0.0-0.5); EOS % 4.3 % (0.0-3.0); HEMATOCRIT 36.9 % (42.0-52.0); HEMOGLOBIN 11.7 g/dl (13.5-17.5); LYMPH % 24.3 % (24.0-44.0); MEAN CORPUSCULAR HEMOGLOBIN 30.4 pg (27.0-33.0); MEAN CORPUSCULAR HGB CONC 31.7 g/dl (32.0-36.5); MEAN CORPUSCULAR VOLUME 95.8 fl (80.0-96.0); MONO % 12.3 % (2.0-8.0); NEUTROPHILS # 4.9 10^3/uL (1.5-8.5); PLATELET COUNT, AUTOMATED 288 10^3/uL (150-450); RED BLOOD COUNT 3.85 10^6/uL (4.30-6.10); WHITE BLOOD COUNT 8.4 10^3/uL (4.0-10.0)
[2020-12-21 12:20] LABS: ALBUMIN 3.7 GM/DL (3.2-5.2); BILIRUBIN,TOTAL 0.3 MG/DL (0.2-1.0); C REACTIVE PROTEIN QUANTITATIV 0.58 MG/DL (0.00-0.30); CALCIUM LEVEL 8.7 MG/DL (8.8-10.2); CREATININE FOR GFR 1.33 MG/DL (0.70-1.30); GLOMERULAR FILTRATION RATE 55.4 (>42); POTASSIUM SERUM 4.2 MEQ/L (3.5-5.1); TOTAL PROTEIN 7.6 GM/DL (6.4-8.2)
[2020-12-21 12:26] LABS: ERYTHROCYTE SEDIMENTATION RATE 51 mm/hr (0-20)
== END ==
LOC: M WUC 10:23
PROVIDERS: ATTEND Internal Medicine Rheumatology
DX: L40.50 Arthropathic psoriasis, unspecified (principal)

== ENCOUNTER → 2021-05-15 | Outpatient (CLI) | payer MEDICARE, BC, OTHER ==
--- NOTE | 2021-05-15 08:50 | REP ---
INDICATION: NICOTINE DEPENDENCE. COMPARISON: 09/11/2018 standard noncontrast enhanced chest CT TECHNIQUE: Axial noncontrast images from the thoracic inlet to the upper abdomen using low-dose lung screening technique (LDCT). As per the protocol only lung window images were sent to the read station for interpretation. FINDINGS: Note is again made of a partially calcified nodule in the left upper lobe. This is unchanged. Note is again made of a pleural base calcified granuloma in the left lower lobe. This is unchanged. There is mild cylindrical bronchiectasis status quo. There are mild emphysematous changes which appear stable. Grossly, the mediastinum and pulmonary addy are unchanged. Grossly, the imaged upper abdomen and imaged osseous structures are unchanged. IMPRESSION: Stable lung rads category [address] low-dose screening CT examination of the lungs. <Electronically signed by Portillo Kam > 05/15/21 [id number]
== END ==
LOC: M RAD 07:49
PROVIDERS: ATTEND Internal Medicine Pulmonary Disease
DX: Z87.891 Personal history of nicotine dependence (principal); F17.218 Nicotine dependence, cigarettes, with other nicotine-induced disorders

== ENCOUNTER → 2021-07-18 | Outpatient (CLI) | payer MEDICARE, BC, OTHER ==
[2021-07-18 12:13] LABS: BASO % 0.3 % (0.0-1.0); EOS # 0.3 10^3/uL (0.0-0.5); HEMATOCRIT 40.6 % (42.0-52.0); LYMPH # 2.4 10^3/uL (1.5-5.0); LYMPH % 27.2 % (24.0-44.0); MEAN CORPUSCULAR HEMOGLOBIN 31.1 pg (27.0-33.0); MEAN CORPUSCULAR VOLUME 97.1 fl (80.0-96.0); MONO # 1.3 10^3/uL (0.0-0.8); NEUTROPHILS # 4.9 10^3/uL (1.5-8.5); NEUTROPHILS % 55.1 % (36.0-66.0); PLATELET COUNT, AUTOMATED 284 10^3/uL (150-450); RED BLOOD COUNT 4.18 10^6/uL (4.30-6.10)
[2021-07-18 12:41] LABS: ALBUMIN 3.6 GM/DL (3.2-5.2); BILIRUBIN,TOTAL 0.3 MG/DL (0.2-1.0); C REACTIVE PROTEIN QUANTITATIV 0.3 MG/DL (0.00-0.30); CREATININE FOR GFR 1.37 MG/DL (0.70-1.30); GLOMERULAR FILTRATION RATE 53.4 (>42); POTASSIUM SERUM 4.2 MEQ/L (3.5-5.1); TOTAL PROTEIN 7.9 GM/DL (6.4-8.2)
[2021-07-18 12:46] LABS: ERYTHROCYTE SEDIMENTATION RATE 46 mm/hr (0-20)
== END ==
LOC: M WUC 10:05
PROVIDERS: ATTEND Internal Medicine Rheumatology
DX: L40.50 Arthropathic psoriasis, unspecified (principal); Z79.899 Other long term (current) drug therapy

== ENCOUNTER → 2021-11-24 | Outpatient (CLI) | payer MEDICARE, BC, OTHER ==
[2021-11-24 16:45] LABS: BASO % 0.3 % (0.0-1.0); EOS # 0.3 10^3/uL (0.0-0.5); EOS % 4.3 % (0.0-3.0); HEMATOCRIT 40.6 % (42.0-52.0); HEMOGLOBIN 12.8 g/dl (13.5-17.5); LYMPH # 2.2 10^3/uL (1.5-5.0); LYMPH % 30.5 % (24.0-44.0); MEAN CORPUSCULAR HEMOGLOBIN 30.3 pg (27.0-33.0); MEAN CORPUSCULAR HGB CONC 31.5 g/dl (32.0-36.5); MEAN CORPUSCULAR VOLUME 96.2 fl (80.0-96.0); MONO # 0.5 10^3/uL (0.0-0.8); MONO % 6.9 % (2.0-8.0); NEUTROPHILS # 4.2 10^3/uL (1.5-8.5); NEUTROPHILS % 57.6 % (36.0-66.0); PLATELET COUNT, AUTOMATED 301 10^3/uL (150-450); RED BLOOD COUNT 4.22 10^6/uL (4.30-6.10); WHITE BLOOD COUNT 7.2 10^3/uL (4.0-10.0)
[2021-11-24 17:12] LABS: ALBUMIN 3.3 GM/DL (3.2-5.2); BILIRUBIN,TOTAL 0.3 MG/DL (0.2-1.0); C REACTIVE PROTEIN QUANTITATIV 1.65 MG/DL (0.00-0.30); CALCIUM LEVEL 8.4 MG/DL (8.8-10.2); CREATININE FOR GFR 1.37 MG/DL (0.70-1.30); GLOMERULAR FILTRATION RATE 53.4 (>42); POTASSIUM SERUM 4.1 MEQ/L (3.5-5.1); TOTAL PROTEIN 7.7 GM/DL (6.4-8.2)
[2021-11-24 17:56] LABS: ERYTHROCYTE SEDIMENTATION RATE 62 mm/hr (0-20)
== END ==
LOC: M WUC 11:33
PROVIDERS: ATTEND Internal Medicine Rheumatology
DX: L40.50 Arthropathic psoriasis, unspecified (principal); Z79.899 Other long term (current) drug therapy

== ENCOUNTER → 2021-12-22 | Outpatient (CLI) | payer MEDICARE, BC, OTHER ==
[2021-12-22 10:22] LABS: BASO % 0.2 % (0.0-1.0); EOS # 0.3 10^3/uL (0.0-0.5); HEMATOCRIT 40.3 % (42.0-52.0); HEMOGLOBIN 12.7 g/dl (13.5-17.5); LYMPH # 1.9 10^3/uL (1.5-5.0); LYMPH % 24.2 % (24.0-44.0); MEAN CORPUSCULAR HGB CONC 31.5 g/dl (32.0-36.5); MEAN CORPUSCULAR VOLUME 95.3 fl (80.0-96.0); MONO # 0.6 10^3/uL (0.0-0.8); MONO % 7.5 % (2.0-8.0); NEUTROPHILS # 5.1 10^3/uL (1.5-8.5); NEUTROPHILS % 63.6 % (36.0-66.0); PLATELET COUNT, AUTOMATED 275 10^3/uL (150-450); RED BLOOD COUNT 4.23 10^6/uL (4.30-6.10)
[2021-12-22 10:45] LABS: ERYTHROCYTE SEDIMENTATION RATE 44 mm/hr (0-20)
[2021-12-22 10:46] LABS: ALBUMIN 3.6 GM/DL (3.2-5.2); BILIRUBIN,TOTAL 0.3 MG/DL (0.2-1.0); C REACTIVE PROTEIN QUANTITATIV 1.05 MG/DL (0.00-0.30); CALCIUM LEVEL 9.1 MG/DL (8.8-10.2); CREATININE FOR GFR 1.6 MG/DL (0.70-1.30); GLOMERULAR FILTRATION RATE 44.6 (>42); POTASSIUM SERUM 4.1 MEQ/L (3.5-5.1)
== END ==
LOC: M WUC 08:24
PROVIDERS: ATTEND Internal Medicine Rheumatology
DX: L40.50 Arthropathic psoriasis, unspecified (principal); Z79.899 Other long term (current) drug therapy

== ENCOUNTER → 2022-03-06 | Outpatient (REF) | payer MEDICARE, OTHER ==
[~2022-03-06] MED LIST changes: -CHLO25TA38 PO; +CHLO25TA88 PO
[2022-03-06 16:43] LABS: BASO % 0.2 % (0.0-1.0); EOS # 0.3 10^3/uL (0.0-0.5); EOS % 3.2 % (0.0-3.0); HEMATOCRIT 38.9 % (42.0-52.0); HEMOGLOBIN 12.4 g/dl (13.5-17.5); LYMPH # 2.2 10^3/uL (1.5-5.0); LYMPH % 22.3 % (24.0-44.0); MEAN CORPUSCULAR HEMOGLOBIN 30.5 pg (27.0-33.0); MEAN CORPUSCULAR HGB CONC 31.9 g/dl (32.0-36.5); MEAN CORPUSCULAR VOLUME 95.8 fl (80.0-96.0); MONO # 1.2 10^3/uL (0.0-0.8); MONO % 12.4 % (2.0-8.0); NEUTROPHILS % 61.4 % (36.0-66.0); PLATELET COUNT, AUTOMATED 355 10^3/uL (150-450); RED BLOOD COUNT 4.06 10^6/uL (4.30-6.10); WHITE BLOOD COUNT 9.8 10^3/uL (4.0-10.0)
[2022-03-06 17:35] LABS: ALBUMIN 3.5 GM/DL (3.2-5.2); BILIRUBIN,TOTAL 0.4 MG/DL (0.2-1.0); C REACTIVE PROTEIN QUANTITATIV 4.37 MG/DL (0.00-0.30); CALCIUM LEVEL 8.8 MG/DL (8.8-10.2); CREATININE FOR GFR 1.45 MG/DL (0.70-1.30); POTASSIUM SERUM 4.4 MEQ/L (3.5-5.1); TOTAL PROTEIN 8.1 GM/DL (6.4-8.2)
[2022-03-06 18:12] LABS: ERYTHROCYTE SEDIMENTATION RATE 61 mm/hr (0-20)
== END ==
LOC: M SFHCRHEU 13:59
PROVIDERS: ATTEND Internal Medicine Rheumatology
DX: L40.50 Arthropathic psoriasis, unspecified (principal); D50.9 Iron deficiency anemia, unspecified; Z79.899 Other long term (current) drug therapy; Z72.0 Tobacco use

== ENCOUNTER → 2022-05-03 | Outpatient (CLI) | payer MEDICARE, OTHER ==
[2022-05-03 11:02] LABS: BASO % 0.4 % (0.0-1.0); EOS # 0.3 10^3/uL (0.0-0.5); EOS % 3.4 % (0.0-3.0); HEMATOCRIT 41.6 % (42.0-52.0); HEMOGLOBIN 12.8 g/dl (13.5-17.5); LYMPH # 2.4 10^3/uL (1.5-5.0); LYMPH % 27.4 % (24.0-44.0); MEAN CORPUSCULAR HEMOGLOBIN 30.3 pg (27.0-33.0); MEAN CORPUSCULAR HGB CONC 30.8 g/dl (32.0-36.5); MEAN CORPUSCULAR VOLUME 98.6 fl (80.0-96.0); MONO # 0.9 10^3/uL (0.0-0.8); MONO % 10.2 % (2.0-8.0); NEUTROPHILS # 5.2 10^3/uL (1.5-8.5); NEUTROPHILS % 58.2 % (36.0-66.0); PLATELET COUNT, AUTOMATED 314 10^3/uL (150-450); RED BLOOD COUNT 4.22 10^6/uL (4.30-6.10); WHITE BLOOD COUNT 8.9 10^3/uL (4.0-10.0)
[2022-05-03 11:25] LABS: ERYTHROCYTE SEDIMENTATION RATE 43 mm/hr (0-20)
[2022-05-03 11:43] LABS: ALBUMIN 3.5 GM/DL (3.2-5.2); BILIRUBIN,TOTAL 0.2 MG/DL (0.2-1.0); C REACTIVE PROTEIN QUANTITATIV 0.58 MG/DL (0.00-0.30); CREATININE FOR GFR 1.45 MG/DL (0.70-1.30); TOTAL PROTEIN 7.8 GM/DL (6.4-8.2)
== END ==
LOC: M WUC 08:02
PROVIDERS: ATTEND Internal Medicine Rheumatology
DX: L40.50 Arthropathic psoriasis, unspecified (principal); L40.9 Psoriasis, unspecified; Z72.0 Tobacco use; D50.9 Iron deficiency anemia, unspecified

== ENCOUNTER → 2022-06-05 | Outpatient (CLI) | payer MEDICARE, OTHER | LOC: M RAD 09:18 | PROVIDERS: ATTEND Internal Medicine Critical Care Medicine | DX: Z87.891 Personal history of nicotine dependence (principal); F17.210 Nicotine dependence, cigarettes, uncomplicated ==

== ENCOUNTER → 2022-09-03 | Outpatient (CLI) | payer MEDICARE, OTHER ==
[2022-09-03 17:19] LABS: BASO # 0.1 10^3/uL (0.0-0.2); BASO % 0.7 % (0.0-1.0); EOS # 0.4 10^3/uL (0.0-0.5); EOS % 5.7 % (0.0-3.0); HEMATOCRIT 39.9 % (42.0-52.0); HEMOGLOBIN 12.5 g/dl (13.5-17.5); LYMPH # 2.4 10^3/uL (1.5-5.0); LYMPH % 31.4 % (24.0-44.0); MEAN CORPUSCULAR HEMOGLOBIN 30.3 pg (27.0-33.0); MEAN CORPUSCULAR HGB CONC 31.3 g/dl (32.0-36.5); MEAN CORPUSCULAR VOLUME 96.8 fl (80.0-96.0); MONO # 1.1 10^3/uL (0.0-0.8); MONO % 14.8 % (2.0-8.0); NEUTROPHILS # 3.5 10^3/uL (1.5-8.5); PLATELET COUNT, AUTOMATED 284 10^3/uL (150-450); RED BLOOD COUNT 4.12 10^6/uL (4.30-6.10); WHITE BLOOD COUNT 7.5 10^3/uL (4.0-10.0)
[2022-09-03 17:41] LABS: C REACTIVE PROTEIN QUANTITATIV < 0.40 MG/DL (<1.0)
[2022-09-03 17:42] LABS: ERYTHROCYTE SEDIMENTATION RATE 58 mm/hr (0-20)
[2022-09-03 17:43] LABS: ALBUMIN 3.4 G/DL (3.2-5.2); ALKALINE PHOSPHATASE 71 U/L (46-116); ALT/SGPT 26 U/L (7.0-40); AST/SGOT 38 U/L (<34); BILIRUBIN,TOTAL 0.2 MG/DL (0.3-1.2); BLOOD UREA NITROGEN 17 MG/DL (9-23); CALCIUM LEVEL 8.7 MG/DL (8.3-10.6); CARBON DIOXIDE LEVEL 28 MMOL/L (20-31); CHLORIDE LEVEL 107 MMOL/L (98-107); CREATININE FOR GFR 1.31 MG/DL (0.70-1.30); GLUCOSE, FASTING 85 MG/DL (74-106); SODIUM LEVEL 142 MMOL/L (136-145); TOTAL PROTEIN 7.6 G/DL (5.7-8.2)
== END ==
LOC: M WUC 13:16
PROVIDERS: ATTEND Internal Medicine Rheumatology
DX: L40.50 Arthropathic psoriasis, unspecified (principal); D50.9 Iron deficiency anemia, unspecified; Z79.899 Other long term (current) drug therapy; Z72.0 Tobacco use

== ENCOUNTER → 2022-09-24 | Outpatient (CLI) | payer MEDICARE, OTHER ==
[2022-09-24 12:45] LABS: ALBUMIN 3.3 G/DL (3.2-5.2); BILIRUBIN,DIRECT 0.1 MG/DL (<0.4); BILIRUBIN,TOTAL 0.3 MG/DL (0.3-1.2); TOTAL PROTEIN 7.5 G/DL (5.7-8.2)
== END ==
LOC: M WUC 08:57
PROVIDERS: ATTEND Internal Medicine Rheumatology
DX: Z72.0 Tobacco use (principal)

== ENCOUNTER → 2022-11-19 | Outpatient (CLI) | payer MEDICARE, OTHER ==
[2022-11-19 17:55] LABS: C REACTIVE PROTEIN QUANTITATIV < 0.40 MG/DL (<1.0)
[2022-11-19 17:57] LABS: BASO % 0.5 % (0.0-1.0); EOS # 0.5 10^3/uL (0.0-0.5); EOS % 5.9 % (0.0-3.0); HEMATOCRIT 39.1 % (42.0-52.0); HEMOGLOBIN 12.5 g/dl (13.5-17.5); LYMPH # 2.6 10^3/uL (1.5-5.0); LYMPH % 32.8 % (24.0-44.0); MEAN CORPUSCULAR HEMOGLOBIN 30.6 pg (27.0-33.0); MEAN CORPUSCULAR VOLUME 95.8 fl (80.0-96.0); MONO # 1.3 10^3/uL (0.0-0.8); MONO % 16.5 % (2.0-8.0); NEUTROPHILS # 3.5 10^3/uL (1.5-8.5); NEUTROPHILS % 43.9 % (36.0-66.0); PLATELET COUNT, AUTOMATED 263 10^3/uL (150-450); RED BLOOD COUNT 4.08 10^6/uL (4.30-6.10)
[2022-11-19 17:59] LABS: ALBUMIN 3.5 G/DL (3.2-5.2); ALKALINE PHOSPHATASE 69 U/L (46-116); ALT/SGPT 36 U/L (7.0-40); AST/SGOT 49 U/L (<34); BILIRUBIN,TOTAL 0.2 MG/DL (0.3-1.2); BLOOD UREA NITROGEN 16 MG/DL (9-23); CALCIUM LEVEL 8.1 MG/DL (8.3-10.6); CARBON DIOXIDE LEVEL 27 MMOL/L (20-31); CHLORIDE LEVEL 111 MMOL/L (98-107); GLOMERULAR FILTRATION RATE > 60.0 (>35); GLUCOSE, FASTING 83 MG/DL (74-106); POTASSIUM SERUM 4.3 MMOL/L (3.5-5.1); SODIUM LEVEL 143 MMOL/L (136-145); TOTAL PROTEIN 7.7 G/DL (5.7-8.2)
[2022-11-19 18:23] LABS: ERYTHROCYTE SEDIMENTATION RATE 72 mm/hr (0-20)
== END ==
LOC: M WUC 11:56
PROVIDERS: ATTEND Internal Medicine Rheumatology
DX: Z72.0 Tobacco use (principal)

== ENCOUNTER → 2023-03-15 | Outpatient (CLI) | payer MEDICARE, OTHER ==
[~2023-03-15] MED LIST changes: -HYDR200T3 PO; +HYDR200T46 PO
[2023-03-15 11:44] LABS: BASO % 0.3 % (0.0-1.0); EOS # 0.3 10^3/uL (0.0-0.5); EOS % 4.8 % (0.0-3.0); HEMATOCRIT 37.2 % (42.0-52.0); HEMOGLOBIN 11.8 g/dl (13.5-17.5); LYMPH # 1.9 10^3/uL (1.5-5.0); LYMPH % 27.7 % (24.0-44.0); MEAN CORPUSCULAR HEMOGLOBIN 30.4 pg (27.0-33.0); MEAN CORPUSCULAR HGB CONC 31.7 g/dl (32.0-36.5); MEAN CORPUSCULAR VOLUME 95.9 fl (80.0-96.0); MONO # 0.6 10^3/uL (0.0-0.8); MONO % 7.9 % (2.0-8.0); NEUTROPHILS # 4.1 10^3/uL (1.5-8.5); NEUTROPHILS % 58.9 % (36.0-66.0); PLATELET COUNT, AUTOMATED 264 10^3/uL (150-450); RED BLOOD COUNT 3.88 10^6/uL (4.30-6.10); WHITE BLOOD COUNT 6.9 10^3/uL (4.0-10.0)
[2023-03-15 12:04] LABS: ERYTHROCYTE SEDIMENTATION RATE 67 mm/hr (0-20)
[2023-03-15 12:11] LABS: ALBUMIN 3.6 G/DL (3.2-5.2); ALKALINE PHOSPHATASE 71 U/L (46-116); ALT/SGPT 26 U/L (7.0-40); AST/SGOT 29 U/L (<34); BILIRUBIN,TOTAL 0.3 MG/DL (0.3-1.2); BLOOD UREA NITROGEN 17 MG/DL (9-23); CALCIUM LEVEL 8.6 MG/DL (8.3-10.6); CARBON DIOXIDE LEVEL 27 MMOL/L (20-31); CHLORIDE LEVEL 110 MMOL/L (98-107); CREATININE FOR GFR 1.21 MG/DL (0.70-1.30); GLOMERULAR FILTRATION RATE > 60.0 (>35); GLUCOSE, FASTING 112 MG/DL (74-106); SODIUM LEVEL 144 MMOL/L (136-145); TOTAL PROTEIN 7.6 G/DL (5.7-8.2)
[2023-03-15 12:12] LABS: IMMUNOGLOBULIN G 1915 MG/DL (650-1600); IMMUNOGLOBULIN M 79.2 MG/DL (50-300)
== END ==
LOC: M WUC 09:33
PROVIDERS: ATTEND Internal Medicine Rheumatology
DX: L40.50 Arthropathic psoriasis, unspecified (principal); Z72.0 Tobacco use; R70.0 Elevated erythrocyte sedimentation rate; D50.9 Iron deficiency anemia, unspecified; Z79.899 Other long term (current) drug therapy; R79.89 Other specified abnormal findings of blood chemistry

== ENCOUNTER 2023-04-16 11:51 | Inpatient (IN) | payer MEDICARE, BC, OTHER ==
[~2023-04-16] VITALS: Ht 165.1 cm; Wt 68.2 kg
[2023-04-16 12:57] LABS: HEMATOCRIT 33.1 % (42.0-52.0); HEMOGLOBIN 10.9 g/dl (13.5-17.5); MEAN CORPUSCULAR HEMOGLOBIN 30.9 pg (27.0-33.0); MEAN CORPUSCULAR HGB CONC 32.9 g/dl (32.0-36.5); MEAN CORPUSCULAR VOLUME 93.8 fl (80.0-96.0); PLATELET COUNT, AUTOMATED 154 10^3/uL (150-450); RED BLOOD COUNT 3.53 10^6/uL (4.30-6.10); WHITE BLOOD COUNT 19.1 10^3/uL (4.0-10.0)
[2023-04-16 13:27] LABS: CALCIUM LEVEL 7.7 MG/DL (8.3-10.6); CREATININE FOR GFR 1.48 MG/DL (0.70-1.30); GLOMERULAR FILTRATION RATE 48.7 (>35); POTASSIUM SERUM 3.9 MMOL/L (3.5-5.1)
[2023-04-16 13:43] LABS: EOSINOPHILS 1 % (0-3); LYMPHOCYTES 5 % (16-44); MONOCYTES 6 % (0-5); NEUTROPHILS 87 % (28-66); PLATELET ESTIMATE NORMAL (NORMAL)
[2023-04-16] MEDS ORDERED: ISOVUE-370 76% 100ML VIAL As Ordered ONE (14:10)
[2023-04-16] MEDS ORDERED: ACETAMINOPHEN TAB 650MG DOSE (2X325MG) PO ONE (14:50)
[2023-04-16] MEDS ORDERED: DOXYCYCLINE HYCLATE 100MG TABLET PO ONE (16:00)
[2023-04-16] MEDS ORDERED: cefTRIAXone SOD 1 GM in D5W MINI-BAG PLUS 50 ML IV ONE (16:00)
[2023-04-16] MEDS ORDERED: NS 1,000 ML IV SCH (16:30)
[2023-04-16 17:37] LABS: PROCALCITONIN 5.27 ng/ml
[2023-04-16] MEDS ORDERED: MED REC IN PROGRESS XX SCH (18:10)
[2023-04-16] MEDS ORDERED: HUMI40IN2 SQ (18:23)
[2023-04-16] MEDS ORDERED: ROSU10TA6 PO (18:25)
[2023-04-16] MEDS ORDERED: HYDR-3713 PO (18:55)
[2023-04-16] MEDS ORDERED: FOLI1TAB11 PO (19:34)
[2023-04-16 20:20] VITALS: BP 152/76; TEMP 97.5; O2SAT 93
[2023-04-17] VITALS (7 sets, daily range): BP systolic 114–152; BP diastolic 57–62; TEMP 97.6–103.3; O2SAT 91–94
[2023-04-17] MEDS: ACETAMINOPHEN TAB 650MG DOSE (2X325MG) PO PRN ×2 (05:45→18:01)
[2023-04-17] MEDS: HEPARIN SOD (PORCINE) 5000UNITS/ML 1ML VIAL/SYRINGE SC SCH ×3 (06:00→20:16)
[2023-04-17 06:34] LABS: HEMOGLOBIN 9.9 g/dl (13.5-17.5); MEAN CORPUSCULAR HEMOGLOBIN 30.9 pg (27.0-33.0); MEAN CORPUSCULAR VOLUME 93.8 fl (80.0-96.0); PLATELET COUNT, AUTOMATED 150 10^3/uL (150-450); WHITE BLOOD COUNT 14.8 10^3/uL (4.0-10.0)
[2023-04-17 07:08] LABS: CALCIUM LEVEL 7.3 MG/DL (8.3-10.6); CREATININE FOR GFR 1.58 MG/DL (0.70-1.30); GLOMERULAR FILTRATION RATE 45.1 (>35); MAGNESIUM LEVEL 1.8 MG/DL (1.8-2.4); POTASSIUM SERUM 3.4 MMOL/L (3.5-5.1)
[2023-04-17] MEDS ORDERED: NORCO, ANEXSIA 5/325MG TABLET (HYDROcodone/ACETAMINOPHEN) PO PRN (07:25)
[2023-04-17] MEDS ORDERED: POTASSIUM CHLORIDE 10MEQ SR TABLET PO ONE (07:25)
[2023-04-17] MEDS ORDERED: OMEP40CA5 PO (07:32)
[2023-04-17 08:40] LABS: PROCALCITONIN 8.27 ng/ml
[2023-04-17] MEDS: DOXYCYCLINE HYCLATE 100MG TABLET PO SCH ×2 (09:39→20:19)
[2023-04-17] MEDS: FOLIC ACID 1MG TAB PO SCH (09:39)
[2023-04-17] MEDS: cefTRIAXone SOD 2 GM in D5W MINI-BAG PLUS 50 ML IV SCH (09:39)
[2023-04-17] MEDS: ASPIRIN 81MG ENTERIC TABLET PO SCH (20:19)
[2023-04-17] MEDS: ROSUVASTATIN 10 MG TAB (CRESTOR) PO SCH (20:19)
[2023-04-17] MEDS: ramipriL 5 MG CAP PO SCH (20:19)
[2023-04-17] MEDS: OMEPRAZOLE 20MG CAP PO SCH (20:19)
[2023-04-17] MEDS ORDERED: HYDROXYCHLOROQUINE 200 MG TAB PO SCH (21:00)
[2023-04-18] VITALS (8 sets, daily range): BP systolic 148–176; BP diastolic 66–81; TEMP 98.7–101.6; O2SAT 90–94
[2023-04-18] MEDS: RAMELTEON 8 MG TAB (ROZEREM) PO PRN ×2 (00:45→21:31)
[2023-04-18] MEDS: HEPARIN SOD (PORCINE) 5000UNITS/ML 1ML VIAL/SYRINGE SC SCH ×3 (05:24→21:35)
[2023-04-18] MEDS: ACETAMINOPHEN TAB 650MG DOSE (2X325MG) PO PRN ×3 (06:46→18:37)
[2023-04-18 07:27] LABS: BASO % 0.1 % (0.0-1.0); EOS % 0.1 % (0.0-3.0); HEMATOCRIT 31.8 % (42.0-52.0); HEMOGLOBIN 10.4 g/dl (13.5-17.5); LYMPH % 9.5 % (24.0-44.0); MEAN CORPUSCULAR HEMOGLOBIN 30.8 pg (27.0-33.0); MEAN CORPUSCULAR HGB CONC 32.7 g/dl (32.0-36.5); MEAN CORPUSCULAR VOLUME 94.1 fl (80.0-96.0); MONO # 0.7 10^3/uL (0.0-0.8); MONO % 7.1 % (2.0-8.0); NEUTROPHILS # 8.5 10^3/uL (1.5-8.5); NEUTROPHILS % 82.7 % (36.0-66.0); PLATELET COUNT, AUTOMATED 181 10^3/uL (150-450); RED BLOOD COUNT 3.38 10^6/uL (4.30-6.10); WHITE BLOOD COUNT 10.3 10^3/uL (4.0-10.0)
[2023-04-18 07:56] LABS: CALCIUM LEVEL 7.5 MG/DL (8.3-10.6); CREATININE FOR GFR 1.46 MG/DL (0.70-1.30); GLOMERULAR FILTRATION RATE 49.5 (>35); MAGNESIUM LEVEL 1.9 MG/DL (1.8-2.4); POTASSIUM SERUM 3.7 MMOL/L (3.5-5.1)
[2023-04-18 08:02] LABS: PROCALCITONIN 5.95 ng/ml
[2023-04-18] MEDS: FOLIC ACID 1MG TAB PO SCH (08:18)
[2023-04-18] MEDS: DOXYCYCLINE HYCLATE 100MG TABLET PO SCH ×2 (08:18→21:32)
[2023-04-18] MEDS: cefTRIAXone SOD 2 GM in D5W MINI-BAG PLUS 50 ML IV SCH (08:18)
[2023-04-18] MEDS: ramipriL 5 MG CAP PO SCH (21:31)
[2023-04-18] MEDS: ROSUVASTATIN 10 MG TAB (CRESTOR) PO SCH (21:32)
[2023-04-18] MEDS: ASPIRIN 81MG ENTERIC TABLET PO SCH (21:32)
[2023-04-18] MEDS: OMEPRAZOLE 20MG CAP PO SCH (21:32)
[2023-04-19] VITALS (8 sets, daily range): BP systolic 115–152; BP diastolic 57–70; TEMP 97.8–102; O2SAT 94–98
[2023-04-19] MEDS: ACETAMINOPHEN TAB 650MG DOSE (2X325MG) PO PRN ×2 (01:54→11:33)
[2023-04-19] MEDS: HEPARIN SOD (PORCINE) 5000UNITS/ML 1ML VIAL/SYRINGE SC SCH ×3 (06:03→21:22)
[2023-04-19 07:00] LABS: BASO % 0.3 % (0.0-1.0); EOS % 0.1 % (0.0-3.0); HEMATOCRIT 30.2 % (42.0-52.0); HEMOGLOBIN 10.1 g/dl (13.5-17.5); LYMPH # 1.2 10^3/uL (1.5-5.0); MEAN CORPUSCULAR HEMOGLOBIN 30.9 pg (27.0-33.0); MEAN CORPUSCULAR HGB CONC 33.4 g/dl (32.0-36.5); MEAN CORPUSCULAR VOLUME 92.4 fl (80.0-96.0); MONO # 0.9 10^3/uL (0.0-0.8); NEUTROPHILS # 7.8 10^3/uL (1.5-8.5); NEUTROPHILS % 77.4 % (36.0-66.0); PLATELET COUNT, AUTOMATED 207 10^3/uL (150-450); RED BLOOD COUNT 3.27 10^6/uL (4.30-6.10); WHITE BLOOD COUNT 10.1 10^3/uL (4.0-10.0)
[2023-04-19 07:32] LABS: CALCIUM LEVEL 7.7 MG/DL (8.3-10.6); CREATININE FOR GFR 1.35 MG/DL (0.70-1.30); GLOMERULAR FILTRATION RATE 54.1 (>35); POTASSIUM SERUM 3.9 MMOL/L (3.5-5.1)
[2023-04-19] MEDS: FOLIC ACID 1MG TAB PO SCH (08:27)
[2023-04-19] MEDS: DOXYCYCLINE HYCLATE 100MG TABLET PO SCH ×2 (08:27→20:39)
[2023-04-19] MEDS: cefTRIAXone SOD 2 GM in D5W MINI-BAG PLUS 50 ML IV SCH (08:27)
[2023-04-19] MEDS: guaiFENesin 200 MG TAB PO SCH ×2 (11:32→17:08)
[2023-04-19] MEDS ORDERED: IBUPROFEN 400MG TAB PO ONE (14:00)
[2023-04-19] MEDS: PIPERACILLIN/TAZOBACTAM SOD 4.5 GM in D5W MINI-BAG PLUS 50 ML IV SCH (19:39)
[2023-04-19] MEDS: ROSUVASTATIN 10 MG TAB (CRESTOR) PO SCH (20:39)
[2023-04-19] MEDS: ASPIRIN 81MG ENTERIC TABLET PO SCH (20:39)
[2023-04-19] MEDS: ramipriL 5 MG CAP PO SCH (20:39)
[2023-04-19] MEDS: OMEPRAZOLE 20MG CAP PO SCH (20:40)
[2023-04-20] VITALS (9 sets, daily range): BP systolic 137–169; BP diastolic 61–79; TEMP 98.2–102; O2SAT 96–98
[2023-04-20] MEDS: guaiFENesin 200 MG TAB PO SCH ×4 (00:22→17:25)
[2023-04-20] MEDS: ACETAMINOPHEN TAB 650MG DOSE (2X325MG) PO PRN ×2 (01:49→10:12)
[2023-04-20] MEDS: PIPERACILLIN/TAZOBACTAM SOD 4.5 GM in D5W MINI-BAG PLUS 50 ML IV SCH ×3 (03:52→20:13)
[2023-04-20] MEDS: HEPARIN SOD (PORCINE) 5000UNITS/ML 1ML VIAL/SYRINGE SC SCH ×3 (05:37→21:31)
[2023-04-20 07:35] LABS: BASO % 0.1 % (0.0-1.0); EOS % 0.2 % (0.0-3.0); HEMATOCRIT 29.5 % (42.0-52.0); HEMOGLOBIN 9.9 g/dl (13.5-17.5); LYMPH # 1.3 10^3/uL (1.5-5.0); LYMPH % 15.1 % (24.0-44.0); MEAN CORPUSCULAR HEMOGLOBIN 30.3 pg (27.0-33.0); MEAN CORPUSCULAR HGB CONC 33.6 g/dl (32.0-36.5); MEAN CORPUSCULAR VOLUME 90.2 fl (80.0-96.0); MONO # 0.9 10^3/uL (0.0-0.8); MONO % 10.8 % (2.0-8.0); NEUTROPHILS # 6.1 10^3/uL (1.5-8.5); NEUTROPHILS % 72.4 % (36.0-66.0); PLATELET COUNT, AUTOMATED 225 10^3/uL (150-450); RED BLOOD COUNT 3.27 10^6/uL (4.30-6.10); WHITE BLOOD COUNT 8.4 10^3/uL (4.0-10.0)
[2023-04-20 07:50] LABS: CALCIUM LEVEL 7.6 MG/DL (8.3-10.6); CREATININE FOR GFR 1.28 MG/DL (0.70-1.30); GLOMERULAR FILTRATION RATE 57.6 (>35); MAGNESIUM LEVEL 1.8 MG/DL (1.8-2.4); POTASSIUM SERUM 3.3 MMOL/L (3.5-5.1)
[2023-04-20] MEDS: DOXYCYCLINE HYCLATE 100MG TABLET PO SCH ×2 (08:42→20:15)
[2023-04-20] MEDS: FOLIC ACID 1MG TAB PO SCH (08:42)
[2023-04-20] MEDS ORDERED: POTASSIUM CHLORIDE 10MEQ SR TABLET PO ONE (09:00)
[2023-04-20] MEDS: OMEPRAZOLE 20MG CAP PO SCH (20:14)
[2023-04-20] MEDS: ramipriL 5 MG CAP PO SCH (20:15)
[2023-04-20] MEDS: ROSUVASTATIN 10 MG TAB (CRESTOR) PO SCH (20:15)
[2023-04-20] MEDS: ASPIRIN 81MG ENTERIC TABLET PO SCH (20:15)
[2023-04-21] MEDS: guaiFENesin 200 MG TAB PO SCH ×4 (00:48→17:56)
[2023-04-21] MEDS: PIPERACILLIN/TAZOBACTAM SOD 4.5 GM in D5W MINI-BAG PLUS 50 ML IV SCH ×3 (03:56→20:44)
[2023-04-21] MEDS: HEPARIN SOD (PORCINE) 5000UNITS/ML 1ML VIAL/SYRINGE SC SCH ×3 (05:27→21:42)
[2023-04-21 05:29] VITALS: BP 157/73; TEMP 97.5; O2SAT 97
[2023-04-21 07:39] LABS: HEMATOCRIT 28.5 % (42.0-52.0); HEMOGLOBIN 9.6 g/dl (13.5-17.5); MEAN CORPUSCULAR HEMOGLOBIN 30.2 pg (27.0-33.0); MEAN CORPUSCULAR HGB CONC 33.7 g/dl (32.0-36.5); MEAN CORPUSCULAR VOLUME 89.6 fl (80.0-96.0); PLATELET COUNT, AUTOMATED 300 10^3/uL (150-450); RED BLOOD COUNT 3.18 10^6/uL (4.30-6.10); WHITE BLOOD COUNT 8.3 10^3/uL (4.0-10.0)
[2023-04-21] MEDS ORDERED: propofoL 200 MG/20 ML VIAL As Ordered ONE (07:47)
[2023-04-21] MEDS ORDERED: LIDOCAINE 2% 100MG/5ML SDV (FOR ANES.) As Ordered ONE (07:47)
[2023-04-21] MEDS ORDERED: fentaNYL 100 MCG/2 ML INJECTION As Ordered ONE (07:47)
[2023-04-21] MEDS ORDERED: ROCURONIUM BROMIDE 50MG/5ML VIAL As Ordered ONE (07:48)
[2023-04-21] MEDS ORDERED: ONDANSETRON 4MG 2ML VIAL As Ordered ONE ×2 (07:48→08:43)
[2023-04-21 08:01] LABS: CALCIUM LEVEL 7.6 MG/DL (8.3-10.6); CREATININE FOR GFR 1.24 MG/DL (0.70-1.30); GLOMERULAR FILTRATION RATE 59.7 (>35); MAGNESIUM LEVEL 1.7 MG/DL (1.8-2.4); POTASSIUM SERUM 3.5 MMOL/L (3.5-5.1)
[2023-04-21] MEDS ORDERED: THROMBIN 5,000 UNITS VIAL As Ordered ONE (08:29)
[2023-04-21] MEDS ORDERED: LIDOCAINE 1% SDV 30ML VIAL As Ordered ONE (08:30)
[2023-04-21] MEDS ORDERED: LIDOCAINE 4% TOPICAL SOLN 50 ML BTL As Ordered ONE (08:30)
[2023-04-21] MEDS ORDERED: CETACAINE SPRAY 5GM As Ordered ONE (08:30)
[2023-04-21] MEDS ORDERED: EPINEPHrine 1MG/10ML SYRINGE 1.5IN As Ordered ONE (08:30)
[2023-04-21 08:32] LABS: BASOPHILS 1 % (0-1); EOSINOPHILS 2 % (0-3); LYMPHOCYTES 22 % (16-44); MONOCYTES 15 % (0-5); NEUTROPHILS 60 % (28-66)
[2023-04-21 08:33] LABS: ANISOCYTOSIS 1+; PLATELET ESTIMATE NORMAL (NORMAL)
[2023-04-21 08:34] LABS: POIKILOCYTOSIS 1+
[2023-04-21] MEDS ORDERED: MAGNESIUM OXIDE 400MG TAB (MAG-OX) PO ONE (10:00)
[2023-04-21] MEDS: FOLIC ACID 1MG TAB PO SCH (10:09)
[2023-04-21] MEDS: DOXYCYCLINE HYCLATE 100MG TABLET PO SCH ×2 (10:09→20:45)
[2023-04-21 14:00] VITALS: BP 147/66; TEMP 98
[2023-04-21 20:45] VITALS: BP 147/66
[2023-04-21] MEDS: ramipriL 5 MG CAP PO SCH (20:45)
[2023-04-21] MEDS: OMEPRAZOLE 20MG CAP PO SCH (20:45)
[2023-04-21] MEDS: ASPIRIN 81MG ENTERIC TABLET PO SCH (20:45)
[2023-04-21] MEDS: ROSUVASTATIN 10 MG TAB (CRESTOR) PO SCH (20:45)
[2023-04-21 22:00] VITALS: BP 160/67; TEMP 98.2; O2SAT 96
[2023-04-22] MEDS: guaiFENesin 200 MG TAB PO SCH ×4 (00:16→18:52)
[2023-04-22 00:19] VITALS: TEMP 98.4
[2023-04-22] MEDS: PIPERACILLIN/TAZOBACTAM SOD 4.5 GM in D5W MINI-BAG PLUS 50 ML IV SCH ×2 (04:07→12:25)
[2023-04-22] MEDS: HEPARIN SOD (PORCINE) 5000UNITS/ML 1ML VIAL/SYRINGE SC SCH ×3 (05:11→20:56)
[2023-04-22 06:00] VITALS: BP 162/70; TEMP 97.4; O2SAT 94
[2023-04-22 06:38] LABS: HEMATOCRIT 28.7 % (42.0-52.0); HEMOGLOBIN 9.7 g/dl (13.5-17.5); MEAN CORPUSCULAR HEMOGLOBIN 30.5 pg (27.0-33.0); MEAN CORPUSCULAR HGB CONC 33.8 g/dl (32.0-36.5); MEAN CORPUSCULAR VOLUME 90.3 fl (80.0-96.0); PLATELET COUNT, AUTOMATED 368 10^3/uL (150-450); RED BLOOD COUNT 3.18 10^6/uL (4.30-6.10); WHITE BLOOD COUNT 9.5 10^3/uL (4.0-10.0)
[2023-04-22 07:02] LABS: BLOOD UREA NITROGEN 17 MG/DL (9-23); CALCIUM LEVEL 7.9 MG/DL (8.3-10.6); CARBON DIOXIDE LEVEL 20 MMOL/L (20-31); CHLORIDE LEVEL 113 MMOL/L (98-107); CREATININE FOR GFR 1.17 MG/DL (0.70-1.30); GLOMERULAR FILTRATION RATE > 60.0 (>35); GLUCOSE, FASTING 92 MG/DL (74-106); MAGNESIUM LEVEL 1.9 MG/DL (1.8-2.4); POTASSIUM SERUM 3.9 MMOL/L (3.5-5.1); SODIUM LEVEL 143 MMOL/L (136-145)
[2023-04-22 07:29] LABS: ATYPICAL LYMPH 7 % (0-5); EOSINOPHILS 7 % (0-3); LYMPHOCYTES 11 % (16-44); METAMYELOCYTES 1 % (0-0); MONOCYTES 5 % (0-5); NEUTROPHILS 69 % (28-66); PLATELET ESTIMATE NORMAL (NORMAL)
[2023-04-22 08:02] LABS: ERYTHROCYTE SEDIMENTATION RATE 66 mm/hr (0-20)
[2023-04-22 08:27] LABS: PROCALCITONIN 0.68 ng/ml
[2023-04-22] MEDS: DOXYCYCLINE HYCLATE 100MG TABLET PO SCH (09:16)
[2023-04-22] MEDS: FOLIC ACID 1MG TAB PO SCH (09:16)
[2023-04-22 14:00] VITALS: BP 125/58; TEMP 98.5; O2SAT 95
[2023-04-22] MEDS ORDERED: LevoFLOXacin 500 MG TABLET PO SCH (18:00)
[2023-04-22] MEDS: ASPIRIN 81MG ENTERIC TABLET PO SCH (20:55)
[2023-04-22] MEDS: ROSUVASTATIN 10 MG TAB (CRESTOR) PO SCH (20:56)
[2023-04-22] MEDS: OMEPRAZOLE 20MG CAP PO SCH (20:56)
[2023-04-22] MEDS: ramipriL 5 MG CAP PO SCH (20:56)
[2023-04-22 21:10] VITALS: BP 170/80; TEMP 98.1; O2SAT 94
[2023-04-23 06:24] VITALS: BP 145/85; TEMP 97.9; O2SAT 94
[2023-04-23 06:29] LABS: HEMATOCRIT 30.3 % (42.0-52.0); HEMOGLOBIN 10.2 g/dl (13.5-17.5); MEAN CORPUSCULAR HEMOGLOBIN 30.9 pg (27.0-33.0); MEAN CORPUSCULAR HGB CONC 33.7 g/dl (32.0-36.5); MEAN CORPUSCULAR VOLUME 91.8 fl (80.0-96.0); WHITE BLOOD COUNT 10.2 10^3/uL (4.0-10.0)
[2023-04-23] MEDS: guaiFENesin 200 MG TAB PO SCH ×3 (06:40→12:05)
[2023-04-23] MEDS: HEPARIN SOD (PORCINE) 5000UNITS/ML 1ML VIAL/SYRINGE SC SCH (06:40)
[2023-04-23 06:48] LABS: PLATELET COUNT, AUTOMATED 471 10^3/uL (150-450)
[2023-04-23 06:52] LABS: BLOOD UREA NITROGEN 19 MG/DL (9-23); CALCIUM LEVEL 8.1 MG/DL (8.3-10.6); CARBON DIOXIDE LEVEL 21 MMOL/L (20-31); CHLORIDE LEVEL 113 MMOL/L (98-107); CREATININE FOR GFR 1.15 MG/DL (0.70-1.30); GLOMERULAR FILTRATION RATE > 60.0 (>35); GLUCOSE, FASTING 106 MG/DL (74-106); MAGNESIUM LEVEL 1.6 MG/DL (1.8-2.4); POTASSIUM SERUM 3.9 MMOL/L (3.5-5.1); SODIUM LEVEL 144 MMOL/L (136-145)
[2023-04-23] MEDS ORDERED: BACI1CAP PO (07:04)
[2023-04-23] MEDS ORDERED: LEVO1TAB39 PO (07:04)
[2023-04-23] MEDS: FOLIC ACID 1MG TAB PO SCH (07:43)
[2023-04-23] MEDS ORDERED: MAGNESIUM OXIDE 400MG TAB (MAG-OX) PO ONE (08:00)
[2023-04-23] MEDS ORDERED: MAG SULF 1GM/100ML (MAG RUN) 1 GM in IV 1 EA IV ONE (08:00)
[2023-04-23 08:09] LABS: ANISOCYTOSIS 1+; ATYPICAL LYMPH 5 % (0-5); BASOPHILS 1 % (0-1); EOSINOPHILS 7 % (0-3); LYMPHOCYTES 29 % (16-44); MONOCYTES 6 % (0-5); NEUTROPHILS 52 % (28-66); PLATELET ESTIMATE INCREASED (NORMAL)
[2023-04-23 08:10] LABS: HELMET CELLS 1+; OVALOCYTES 1+
[2023-04-23 13:07] LABS: BODY FLUID CULTURE Not indicated. (.); ORGANISM ID Not indicated. (.); SPECIMEN SOURCE Urine (.); URINE STREP PNEUMONIAE ANTIGEN Negative (Negative)
[2023-04-23 13:30] VITALS: BP 140/84; TEMP 97.9; O2SAT 94
[2023-04-23 20:07] LABS: LEGIONELLA ANTIGEN URINE Positive (Negative)
[2023-04-24 23:07] LABS: BODY FLUID CULTURE Not indicated. (.); LEGIONELLA ANTIGEN URINE Positive (Negative); ORGANISM ID Not indicated. (.); SPECIMEN SOURCE Urine (.); URINE STREP PNEUMONIAE ANTIGEN Negative (Negative)
== END 2023-04-23 14:10 | disposition home or self-care (01) | DRG 178 ==
LOC: EDBD 11:51 → M ED 11:51 → M ED INP 11:52 → M MS4PR 20:15 → OBSVTOIN 04-17 09:50 → M MS5PR 04-22 17:20
PROVIDERS: ADMIT Family Medicine; ATTEND General Practice
DX: J15.6 Pneumonia due to other Gram-negative bacteria (principal); D84.821 Immunodeficiency due to drugs; J43.9 Emphysema, unspecified; K52.9 Noninfective gastroenteritis and colitis, unspecified; F17.200 Nicotine dependence, unspecified, uncomplicated; I10 Essential (primary) hypertension; E78.5 Hyperlipidemia, unspecified; K21.9 Gastro-esophageal reflux disease without esophagitis; T39.4X5A Adverse effect of antirheumatics, not elsewhere classified, initial encounter; L40.50 Arthropathic psoriasis, unspecified; Z66 Do not resuscitate; Z79.82 Long term (current) use of aspirin; Z79.899 Other long term (current) drug therapy; Z88.2 Allergy status to sulfonamides

== ENCOUNTER → 2023-05-13 | Outpatient (CLI) | payer MEDICARE, BC, OTHER ==
[~2023-05-13] MED LIST changes: +BACI1CAP PO; +HUMI40IN2 SQ; +HYDR-3713 PO; +LEVO1TAB39 PO; +OMEP40CA5 PO; +ROSU10TA6 PO
== END ==
LOC: M WUC 09:42
PROVIDERS: ATTEND Family Medicine
DX: J18.9 Pneumonia, unspecified organism (principal)

== ENCOUNTER → 2023-06-19 | Outpatient (CLI) | payer MEDICARE, BC, OTHER | LOC: M WUC 10:40 | PROVIDERS: ATTEND Family Medicine | DX: J18.9 Pneumonia, unspecified organism (principal) ==

== ENCOUNTER → 2023-10-16 | Outpatient (CLI) | payer MEDICARE, BC, OTHER ==
[2023-10-16 12:11] LABS: BASO % 0.4 % (0.0-1.0); EOS # 0.5 10^3/uL (0.0-0.5); EOS % 7.1 % (0.0-3.0); HEMATOCRIT 34.3 % (42.0-52.0); HEMOGLOBIN 10.7 g/dl (13.5-17.5); LYMPH # 2.2 10^3/uL (1.5-5.0); LYMPH % 31.4 % (24.0-44.0); MEAN CORPUSCULAR HEMOGLOBIN 28.3 pg (27.0-33.0); MEAN CORPUSCULAR HGB CONC 31.2 g/dl (32.0-36.5); MEAN CORPUSCULAR VOLUME 90.7 fl (80.0-96.0); MONO % 14.3 % (2.0-8.0); NEUTROPHILS # 3.2 10^3/uL (1.5-8.5); NEUTROPHILS % 46.5 % (36.0-66.0); PLATELET COUNT, AUTOMATED 306 10^3/uL (150-450); RED BLOOD COUNT 3.78 10^6/uL (4.30-6.10); WHITE BLOOD COUNT 6.9 10^3/uL (4.0-10.0)
[2023-10-16 12:18] LABS: ERYTHROCYTE SEDIMENTATION RATE 68 mm/hr (0-20)
[2023-10-16 12:41] LABS: ALBUMIN 3.4 G/DL (3.2-5.2); ALKALINE PHOSPHATASE 66 U/L (46-116); ALT/SGPT 27 U/L (7.0-40); AST/SGOT 31 U/L (<34); BILIRUBIN,TOTAL 0.2 MG/DL (0.3-1.2); BLOOD UREA NITROGEN 21 MG/DL (9-23); CALCIUM LEVEL 8.3 MG/DL (8.3-10.6); CARBON DIOXIDE LEVEL 27 MMOL/L (20-31); CHLORIDE LEVEL 109 MMOL/L (98-107); CREATININE FOR GFR 1.19 MG/DL (0.70-1.30); GLOMERULAR FILTRATION RATE > 60.0 (>35); GLUCOSE, FASTING 135 MG/DL (74-106); POTASSIUM SERUM 4.3 MMOL/L (3.5-5.1); SODIUM LEVEL 140 MMOL/L (136-145); TOTAL PROTEIN 7.8 G/DL (5.7-8.2)
== END ==
LOC: M WUC 10:02
PROVIDERS: ATTEND Internal Medicine Rheumatology
DX: L40.50 Arthropathic psoriasis, unspecified (principal); D50.9 Iron deficiency anemia, unspecified; Z79.899 Other long term (current) drug therapy; Z72.0 Tobacco use; R79.89 Other specified abnormal findings of blood chemistry

== ENCOUNTER → 2023-11-21 | Outpatient (CLI) | payer MEDICARE, BC | LOC: M PLAIMG 08:49 | PROVIDERS: ATTEND Internal Medicine Critical Care Medicine | DX: R94.2 Abnormal results of pulmonary function studies (principal) ==

== ENCOUNTER → 2024-02-10 | Outpatient (REF) | payer MEDICARE, BC ==
[~2024-02-10] MED LIST changes: +RAMI10CA64 PO; -RAMI1CAP26 PO; -ROSU10TA6 PO; +ROSU10TA61 PO
[2024-02-10 13:45] LABS: C REACTIVE PROTEIN QUANTITATIV 0.5 MG/DL (<1.0)
[2024-02-10 13:47] LABS: ALBUMIN 3.7 G/DL (3.2-5.2); BILIRUBIN,TOTAL 0.2 MG/DL (0.3-1.2); CALCIUM LEVEL 8.7 MG/DL (8.3-10.6); CREATININE FOR GFR 1.36 MG/DL (0.70-1.30); GLOMERULAR FILTRATION RATE 53.5 (>35); POTASSIUM SERUM 4.4 MMOL/L (3.5-5.1)
[2024-02-10 13:48] LABS: BASO % 0.4 % (0.0-1.0); EOS # 0.3 10^3/uL (0.0-0.5); EOS % 4.3 % (0.0-3.0); HEMATOCRIT 31.7 % (42.0-52.0); HEMOGLOBIN 9.7 g/dl (13.5-17.5); LYMPH # 1.7 10^3/uL (1.5-5.0); LYMPH % 21.7 % (24.0-44.0); MEAN CORPUSCULAR HGB CONC 30.6 g/dl (32.0-36.5); MEAN CORPUSCULAR VOLUME 91.4 fl (80.0-96.0); MONO % 12.8 % (2.0-8.0); NEUTROPHILS # 4.8 10^3/uL (1.5-8.5); NEUTROPHILS % 60.3 % (36.0-66.0); PLATELET COUNT, AUTOMATED 333 10^3/uL (150-450); RED BLOOD COUNT 3.47 10^6/uL (4.30-6.10)
[2024-02-10 13:53] LABS: ERYTHROCYTE SEDIMENTATION RATE 114 mm/hr (0-20)
== END ==
LOC: M SFHCRHEU 09:16
PROVIDERS: ATTEND Internal Medicine Rheumatology
DX: L40.50 Arthropathic psoriasis, unspecified (principal)

== ENCOUNTER → 2024-02-17 | Outpatient (CLI) | payer MEDICARE, BC ==
[2024-02-17 12:10] LABS: HEMATOCRIT 29.8 % (42.0-52.0); MEAN CORPUSCULAR HEMOGLOBIN 27.4 pg (27.0-33.0); MEAN CORPUSCULAR HGB CONC 30.2 g/dl (32.0-36.5); MEAN CORPUSCULAR VOLUME 90.9 fl (80.0-96.0); PLATELET COUNT, AUTOMATED 314 10^3/uL (150-450); RED BLOOD COUNT 3.28 10^6/uL (4.30-6.10); WHITE BLOOD COUNT 10.2 10^3/uL (4.0-10.0)
[2024-02-17 12:18] LABS: ERYTHROCYTE SEDIMENTATION RATE 64 mm/hr (0-20)
[2024-02-17 12:41] LABS: C REACTIVE PROTEIN QUANTITATIV < 0.40 MG/DL (<1.0)
[2024-02-17 12:43] LABS: ALBUMIN 3.5 G/DL (3.2-5.2); ALKALINE PHOSPHATASE 64 U/L (46-116); ALT/SGPT 23 U/L (7.0-40); AST/SGOT 20 U/L (<34); BILIRUBIN,TOTAL 0.2 MG/DL (0.3-1.2); BLOOD UREA NITROGEN 20 MG/DL (9-23); CALCIUM LEVEL 8.6 MG/DL (8.3-10.6); CARBON DIOXIDE LEVEL 25 MMOL/L (20-31); CHLORIDE LEVEL 112 MMOL/L (98-107); CREATININE FOR GFR 1.25 MG/DL (0.70-1.30); GLUCOSE, FASTING 118 MG/DL (74-106); POTASSIUM SERUM 4.1 MMOL/L (3.5-5.1); SODIUM LEVEL 142 MMOL/L (136-145); TOTAL PROTEIN 7.2 G/DL (5.7-8.2)
== END ==
LOC: M WUC 08:29
PROVIDERS: ATTEND Internal Medicine Rheumatology
DX: L40.50 Arthropathic psoriasis, unspecified (principal)

== ENCOUNTER → 2024-02-27 | Outpatient (CLI) | payer MEDICARE, BC ==
[2024-02-27 18:47] LABS: BASO % 0.2 % (0.0-1.0); EOS % 0.3 % (0.0-3.0); HEMATOCRIT 31.4 % (42.0-52.0); HEMOGLOBIN 9.5 g/dl (13.5-17.5); LYMPH # 1.1 10^3/uL (1.5-5.0); MEAN CORPUSCULAR HEMOGLOBIN 27.5 pg (27.0-33.0); MEAN CORPUSCULAR HGB CONC 30.3 g/dl (32.0-36.5); MONO # 0.5 10^3/uL (0.0-0.8); NEUTROPHILS # 10.7 10^3/uL (1.5-8.5); NEUTROPHILS % 86.1 % (36.0-66.0); PLATELET COUNT, AUTOMATED 310 10^3/uL (150-450); RED BLOOD COUNT 3.45 10^6/uL (4.30-6.10); WHITE BLOOD COUNT 12.4 10^3/uL (4.0-10.0)
[2024-02-27 19:14] LABS: HEMOGLOBIN A1c 5.9 % (4.0-6.0)
[2024-02-27 19:17] LABS: FERRITIN 11.4 NG/ML (10.5-307.3); TOTAL IRON BINDING CAPACITY 411 UG/DL (250-425)
[2024-02-27 19:19] LABS: FOLATE > 24.0 NG/ML (>5.4); IRON (FE) 43 UG/DL (65-175); PERCENT SATURATION 10.5 % (19.7-50.0); VITAMIN B12 LEVEL 251 PG/ML (211-911)
== END ==
LOC: M WUC 12:22
PROVIDERS: ATTEND Family Medicine
DX: D64.9 Anemia, unspecified (principal); R73.9 Hyperglycemia, unspecified

== ENCOUNTER → 2024-05-28 | Outpatient (CLI) | payer MEDICARE, BC ==
[~2024-05-28] MED LIST changes: +PRED10TA2 PO
== END ==
LOC: M RAD 10:45
PROVIDERS: ATTEND Internal Medicine Critical Care Medicine
DX: J43.9 Emphysema, unspecified (principal)

== ENCOUNTER → 2024-06-02 | Outpatient (CLI) | payer MEDICARE, BC ==
[2024-06-02 13:06] LABS: HEMATOCRIT 28.8 % (42.0-52.0); HEMOGLOBIN 8.6 g/dl (13.5-17.5); MEAN CORPUSCULAR HEMOGLOBIN 26.5 pg (27.0-33.0); MEAN CORPUSCULAR HGB CONC 29.9 g/dl (32.0-36.5); MEAN CORPUSCULAR VOLUME 88.6 fl (80.0-96.0); PLATELET COUNT, AUTOMATED 318 10^3/uL (150-450); RED BLOOD COUNT 3.25 10^6/uL (4.30-6.10); WHITE BLOOD COUNT 7.2 10^3/uL (4.0-10.0)
[2024-06-02 13:24] LABS: ERYTHROCYTE SEDIMENTATION RATE 76 mm/hr (0-20)
[2024-06-02 13:28] LABS: C REACTIVE PROTEIN QUANTITATIV < 0.40 MG/DL (<1.0)
[2024-06-02 13:29] LABS: ALBUMIN 3.5 G/DL (3.2-5.2); ALKALINE PHOSPHATASE 61 U/L (40-129); ALT/SGPT 20 U/L (7.0-40); AST/SGOT 30 U/L (<34); BILIRUBIN,TOTAL 0.2 MG/DL (0.3-1.2); BLOOD UREA NITROGEN 18 MG/DL (9-23); CARBON DIOXIDE LEVEL 25 MMOL/L (20-31); CHLORIDE LEVEL 114 MMOL/L (98-107); CREATININE FOR GFR 1.27 MG/DL (0.70-1.30); GLOMERULAR FILTRATION RATE 57.9 (>35); GLUCOSE, FASTING 75 MG/DL (74-106); POTASSIUM SERUM 3.6 MMOL/L (3.5-5.1); SODIUM LEVEL 146 MMOL/L (136-145); TOTAL PROTEIN 7.8 G/DL (5.7-8.2)
== END ==
LOC: M WUC 10:01
PROVIDERS: ATTEND Internal Medicine Rheumatology
DX: L40.50 Arthropathic psoriasis, unspecified (principal)

== ENCOUNTER 2024-06-10 11:46 | Day surgery (SDC) | payer MEDICARE, BC ==
[~2024-06-10] VITALS: Ht 165.1 cm; Wt 65.3 kg
[~2024-06-10 11:46] MED LIST changes: +NS 250 ML IV ONE; +propofoL 500 MG/50 ML VIAL As Ordered ONE
[2024-06-10 13:21] VITALS: TEMP 98
[2024-06-10 13:40] VITALS: BP 131/69; O2SAT 97
== END 2024-06-10 13:48 | disposition home or self-care (01) ==
LOC: M OPP 11:46
PROVIDERS: ATTEND Internal Medicine Gastroenterology
DX: D50.9 Iron deficiency anemia, unspecified (principal); K51.40 Inflammatory polyps of colon without complications; K64.0 First degree hemorrhoids; K57.30 Diverticulosis of large intestine without perforation or abscess without bleeding; K55.20 Angiodysplasia of colon without hemorrhage; K44.9 Diaphragmatic hernia without obstruction or gangrene; K21.9 Gastro-esophageal reflux disease without esophagitis; I10 Essential (primary) hypertension; E78.00 Pure hypercholesterolemia, unspecified; J45.909 Unspecified asthma, uncomplicated; M06.9 Rheumatoid arthritis, unspecified; Z79.82 Long term (current) use of aspirin; Z79.899 Other long term (current) drug therapy; Z79.631 Long term (current) use of antimetabolite agent; Z88.2 Allergy status to sulfonamides

== ENCOUNTER → 2024-09-16 | Outpatient (CLI) | payer MEDICARE, BC ==
[~2024-09-16] MED LIST changes: -NS 250 ML IV ONE; -propofoL 500 MG/50 ML VIAL As Ordered ONE
[2024-09-16 15:58] LABS: BASO % 0.3 % (0.0-1.0); EOS # 0.4 10^3/uL (0.0-0.5); EOS % 4.9 % (0.0-3.0); HEMATOCRIT 26.5 % (42.0-52.0); HEMOGLOBIN 7.8 g/dl (13.5-17.5); LYMPH # 2.6 10^3/uL (1.5-5.0); LYMPH % 29.3 % (24.0-44.0); MEAN CORPUSCULAR HEMOGLOBIN 24.4 pg (27.0-33.0); MEAN CORPUSCULAR HGB CONC 29.4 g/dl (32.0-36.5); MEAN CORPUSCULAR VOLUME 82.8 fl (80.0-96.0); MONO # 1.1 10^3/uL (0.0-0.8); MONO % 12.4 % (2.0-8.0); NEUTROPHILS # 4.7 10^3/uL (1.5-8.5); NEUTROPHILS % 52.5 % (36.0-66.0); PLATELET COUNT, AUTOMATED 452 10^3/uL (150-450); WHITE BLOOD COUNT 8.9 10^3/uL (4.0-10.0)
[2024-09-16 16:03] LABS: ALBUMIN 3.1 G/DL (3.2-5.2); ALKALINE PHOSPHATASE 64 U/L (40-129); ALT/SGPT 11 U/L (7.0-40); AST/SGOT 19 U/L (<34); BILIRUBIN,TOTAL < 0.2 MG/DL (0.3-1.2); BLOOD UREA NITROGEN 14 MG/DL (9-23); CALCIUM LEVEL 8.3 MG/DL (8.3-10.6); CARBON DIOXIDE LEVEL 24 MMOL/L (20-31); CHLORIDE LEVEL 109 MMOL/L (98-107); CREATININE FOR GFR 1.16 MG/DL (0.70-1.30); GLOMERULAR FILTRATION RATE > 60.0 (>35); GLUCOSE, FASTING 118 MG/DL (74-106); POTASSIUM SERUM 4.2 MMOL/L (3.5-5.1); SODIUM LEVEL 144 MMOL/L (136-145); TOTAL PROTEIN 8.3 G/DL (5.7-8.2)
[2024-09-16 16:18] LABS: ERYTHROCYTE SEDIMENTATION RATE 98 mm/hr (0-20)
== END ==
LOC: M WUC 09:33
PROVIDERS: ATTEND Internal Medicine Rheumatology
DX: L40.50 Arthropathic psoriasis, unspecified (principal); Z79.899 Other long term (current) drug therapy

== ENCOUNTER → 2024-10-23 | Outpatient (REF) | payer MEDICARE, BC ==
[2024-10-23 15:40] LABS: ALBUMIN 3.3 G/DL (3.2-5.2); BILIRUBIN,TOTAL 0.2 MG/DL (0.3-1.2); CALCIUM LEVEL 8.4 MG/DL (8.3-10.6); CREATININE FOR GFR 1.3 MG/DL (0.70-1.30); GLOMERULAR FILTRATION RATE 56.3 (>35); POTASSIUM SERUM 4.1 MMOL/L (3.5-5.1); TOTAL PROTEIN 8.1 G/DL (5.7-8.2)
[2024-10-23 15:41] LABS: C REACTIVE PROTEIN QUANTITATIV 1.17 MG/DL (<1.0)
[2024-10-23 15:57] LABS: BASO % 0.2 % (0.0-1.0); EOS # 0.2 10^3/uL (0.0-0.5); EOS % 3.2 % (0.0-3.0); HEMATOCRIT 25.5 % (42.0-52.0); HEMOGLOBIN 7.5 g/dl (13.5-17.5); LYMPH # 1.4 10^3/uL (1.5-5.0); LYMPH % 22.8 % (24.0-44.0); MEAN CORPUSCULAR HEMOGLOBIN 23.7 pg (27.0-33.0); MEAN CORPUSCULAR HGB CONC 29.4 g/dl (32.0-36.5); MEAN CORPUSCULAR VOLUME 80.7 fl (80.0-96.0); MONO # 0.4 10^3/uL (0.0-0.8); MONO % 5.9 % (2.0-8.0); NEUTROPHILS # 4.3 10^3/uL (1.5-8.5); NEUTROPHILS % 67.7 % (36.0-66.0); PLATELET COUNT, AUTOMATED 331 10^3/uL (150-450); RED BLOOD COUNT 3.16 10^6/uL (4.30-6.10); WHITE BLOOD COUNT 6.3 10^3/uL (4.0-10.0)
[2024-10-23 16:10] LABS: ERYTHROCYTE SEDIMENTATION RATE 90 mm/hr (0-20)
== END ==
LOC: M SFHCRHEU 08:58
PROVIDERS: ATTEND Internal Medicine Rheumatology
DX: L40.50 Arthropathic psoriasis, unspecified (principal)

== ENCOUNTER → 2024-10-26 | Outpatient (CLI) | payer MEDICARE, BC ==
[2024-10-26 12:58] LABS: BASO % 0.4 % (0.0-1.0); EOS # 0.4 10^3/uL (0.0-0.5); EOS % 4.4 % (0.0-3.0); HEMOGLOBIN 7.8 g/dl (13.5-17.5); LYMPH % 24.5 % (24.0-44.0); MEAN CORPUSCULAR HEMOGLOBIN 23.6 pg (27.0-33.0); MEAN CORPUSCULAR HGB CONC 28.9 g/dl (32.0-36.5); MEAN CORPUSCULAR VOLUME 81.8 fl (80.0-96.0); MONO # 0.9 10^3/uL (0.0-0.8); MONO % 10.9 % (2.0-8.0); NEUTROPHILS # 4.9 10^3/uL (1.5-8.5); NEUTROPHILS % 59.3 % (36.0-66.0); PLATELET COUNT, AUTOMATED 346 10^3/uL (150-450); WHITE BLOOD COUNT 8.2 10^3/uL (4.0-10.0)
[2024-10-26 13:27] LABS: FOLATE > 24.0 NG/ML (>5.4); VITAMIN B12 LEVEL 232 PG/ML (211-911)
[2024-10-26 13:30] LABS: IRON (FE) 13 UG/DL (65-175); PERCENT SATURATION 3.4 % (19.7-50.0); TOTAL IRON BINDING CAPACITY 378 UG/DL (250-425)
[2024-10-26 13:34] LABS: PLATELET ESTIMATE NORMAL (NORMAL)
[2024-10-26 13:35] LABS: ANISOCYTOSIS 2+; MICROCYTOSIS 1+; POIKILOCYTOSIS 1+; POLYCHROMASIA 1+
== END ==
LOC: M WUC 08:54
PROVIDERS: ATTEND Family Medicine
DX: D64.9 Anemia, unspecified (principal)

== ENCOUNTER → 2024-11-09 | Outpatient (CLI) | payer MEDICARE, BC ==
[2024-11-09 13:27] LABS: IRON (FE) 81 UG/DL (65-175); PERCENT SATURATION 21.3 % (19.7-50.0); TOTAL IRON BINDING CAPACITY 381 UG/DL (250-425)
[2024-11-09 13:28] LABS: VITAMIN B12 LEVEL 302 PG/ML (211-911)
[2024-11-09 13:29] LABS: FERRITIN 24.7 NG/ML (10.5-307.3); FOLATE > 24.00 NG/ML (>5.4)
== END ==
LOC: M WUC 10:23
PROVIDERS: ATTEND Internal Medicine Rheumatology
DX: D50.9 Iron deficiency anemia, unspecified (principal)

== ENCOUNTER → 2025-02-12 | Outpatient (REF) | payer MEDICARE, BC ==
[~2025-02-12] MED LIST changes: +ALBU8.5H PO; +ENTR1TAB PO; +FARX1TAB3 PO; +FURO20TA2 PO; +METO1TAB32 PO; +PHOS1TAB3 PO; -RABE1TAB4 PO; +RABE1TAB5 PO; +STIO1AER PO
[2025-02-12 12:26] LABS: PLATELET COUNT, AUTOMATED 252 10^3/uL (150-450)
[2025-02-12 13:19] LABS: CALCIUM LEVEL 8.0 MG/DL (8.3-10.6); CARBON DIOXIDE LEVEL 24.0 MMOL/L (20-31); CHLORIDE LEVEL 110.0 MMOL/L (98-107); CREATININE FOR GFR 1.32 MG/DL (0.70-1.30); GLOMERULAR FILTRATION RATE 53.9 (>35); POTASSIUM SERUM 4.2 MMOL/L (3.5-5.1); SODIUM LEVEL 145.0 MMOL/L (136-145)
== END ==
LOC: M LAB REF 11:16
PROVIDERS: ATTEND Internal Medicine Cardiovascular Disease
DX: I50.20 Unspecified systolic (congestive) heart failure (principal)

== ENCOUNTER → 2025-03-29 | Outpatient (CLI) | payer MEDICARE, BC ==
[~2025-03-29] MED LIST changes: +ISOVUE-370 76% 100 ML VIAL As Ordered ONE
== END ==
LOC: M RAD 07:51
PROVIDERS: ATTEND Thoracic Surgery (Cardiothoracic Vascular Surgery)
DX: I65.23 Occlusion and stenosis of bilateral carotid arteries (principal)
CPT/HCPCS: 70450; 70496; 70498; Q9967

== ENCOUNTER 2025-04-28 21:12 | Emergency (ER) | payer MEDICARE, BC ==
[~2025-04-28] VITALS: Ht 165.1 cm; Wt 60.8 kg
[~2025-04-28 21:12] MED LIST changes: -ISOVUE-370 76% 100 ML VIAL As Ordered ONE
[2025-04-28 21:13] VITALS: TEMP 99
[2025-04-28 22:35] LABS: BASO # 0.0 10^3/uL (0.0-0.2); BASO % 0.4 % (0.0-1.0); EOS # 0.6 10^3/uL (0.0-0.5); EOS % 6.5 % (0.0-3.0); LYMPH # 1.5 10^3/uL (1.5-5.0); LYMPH % 17.2 % (24.0-44.0); MONO # 1.1 10^3/uL (0.0-0.8); MONO % 13.1 % (2.0-8.0); NEUTROPHILS # 5.3 10^3/uL (1.5-8.5); NEUTROPHILS % 62.3 % (36.0-66.0); PLATELET COUNT, AUTOMATED 197 10^3/uL (150-450)
[2025-04-28 22:58] LABS: CALCIUM LEVEL 8.2 MG/DL (8.3-10.6); CARBON DIOXIDE LEVEL 26.0 MMOL/L (20-31); CHLORIDE LEVEL 105.0 MMOL/L (98-107); CREATININE FOR GFR 1.73 MG/DL (0.70-1.30); GLOMERULAR FILTRATION RATE 38.9 (>35); MAGNESIUM LEVEL 2.2 MG/DL (1.8-2.4); POTASSIUM SERUM 4.5 MMOL/L (3.5-5.1); SODIUM LEVEL 137.0 MMOL/L (136-145)
[2025-04-28] MEDS: PANTOPRAZOLE 40MG TAB PO ONE (23:48)
[2025-04-28] MEDS: ASPIRIN 81 MG CHEWABLE TABLET PO ONE (23:48)
[2025-04-28] MEDS: ENTRESTO 24-26 MG TABLET (SACUBITRIL/VALSARTAN) PO STA (23:48)
[2025-04-28] MEDS: DAPAGLIFLOZIN PROPANEDIOL 10 MG TABLET PO STA (23:48)
[2025-04-29 00:45] VITALS: BP 127/77; O2SAT 93
[2025-04-29] MEDS ORDERED: DAPAGLIFLOZIN PROPANEDIOL 10 MG TABLET PO SCH (09:00)
== END 2025-04-29 00:46 | disposition home or self-care (01) ==
LOC: M ED 21:12
DX: T50.991A Poisoning by other drugs, medicaments and biological substances, accidental (unintentional), initial encounter (principal); I25.119 Atherosclerotic heart disease of native coronary artery with unspecified angina pectoris; I50.22 Chronic systolic (congestive) heart failure; I25.2 Old myocardial infarction; E11.9 Type 2 diabetes mellitus without complications; E78.5 Hyperlipidemia, unspecified; I11.0 Hypertensive heart disease with heart failure; J45.909 Unspecified asthma, uncomplicated; K21.9 Gastro-esophageal reflux disease without esophagitis; Z88.2 Allergy status to sulfonamides; Z79.1 Long term (current) use of non-steroidal anti-inflammatories (NSAID); Z79.51 Long term (current) use of inhaled steroids; Z79.899 Other long term (current) drug therapy

== ENCOUNTER → 2025-05-06 | Outpatient (CLI) | payer MEDICARE, BC ==
[2025-05-06 14:07] LABS: ALT/SGPT 32.0 U/L (7.0-40); AST/SGOT 31.0 U/L (<34); CALCIUM LEVEL 8.9 MG/DL (8.3-10.6); CARBON DIOXIDE LEVEL 24.0 MMOL/L (20-31); CHLORIDE LEVEL 107.0 MMOL/L (98-107); CREATININE FOR GFR 1.65 MG/DL (0.70-1.30); GLOMERULAR FILTRATION RATE 41.2 (>35); POTASSIUM SERUM 4.5 MMOL/L (3.5-5.1); SODIUM LEVEL 135.0 MMOL/L (136-145)
== END ==
LOC: M WUC 12:00
PROVIDERS: ATTEND Internal Medicine Cardiovascular Disease
DX: I50.20 Unspecified systolic (congestive) heart failure (principal)

== ENCOUNTER → 2025-05-06 | Outpatient (CLI) | payer MEDICARE, BC ==
[2025-05-06 14:06] LABS: BASO # 0.0 10^3/uL (0.0-0.2); BASO % 0.4 % (0.0-1.0); EOS # 0.5 10^3/uL (0.0-0.5); EOS % 5.2 % (0.0-3.0); LYMPH # 1.1 10^3/uL (1.5-5.0); LYMPH % 12.4 % (24.0-44.0); MONO # 1.1 10^3/uL (0.0-0.8); MONO % 11.8 % (2.0-8.0); NEUTROPHILS # 6.4 10^3/uL (1.5-8.5); NEUTROPHILS % 69.7 % (36.0-66.0); PLATELET COUNT, AUTOMATED 306 10^3/uL (150-450)
[2025-05-06 14:11] LABS: IRON (FE) 17.0 UG/DL (65-175); PERCENT SATURATION 8.1 % (19.7-50.0)
== END ==
LOC: M WUC 11:59
PROVIDERS: ATTEND Family Medicine
DX: D64.9 Anemia, unspecified (principal); I50.20 Unspecified systolic (congestive) heart failure

== ENCOUNTER → 2025-05-20 | Outpatient (CLI) | payer MEDICARE, BC ==
[2025-05-20 18:57] LABS: BASO # 0.0 10^3/uL (0.0-0.2); BASO % 0.4 % (0.0-1.0); EOS # 0.7 10^3/uL (0.0-0.5); EOS % 8.5 % (0.0-3.0); LYMPH # 1.0 10^3/uL (1.5-5.0); LYMPH % 12.8 % (24.0-44.0); MONO # 0.9 10^3/uL (0.0-0.8); MONO % 10.8 % (2.0-8.0); NEUTROPHILS # 5.4 10^3/uL (1.5-8.5); NEUTROPHILS % 66.5 % (36.0-66.0); PLATELET COUNT, AUTOMATED 365 10^3/uL (150-450)
[2025-05-20 19:30] LABS: IRON (FE) 23.0 UG/DL (65-175); PERCENT SATURATION 9.0 % (19.7-50.0)
== END ==
LOC: M WUC 13:55
PROVIDERS: ATTEND Family Medicine
DX: D64.9 Anemia, unspecified (principal)

== ENCOUNTER → 2025-05-26 | Outpatient (CLI) | payer MEDICARE, BC ==
[2025-05-26 18:09] LABS: BASO # 0.0 10^3/uL (0.0-0.2); BASO % 0.4 % (0.0-1.0); EOS # 0.6 10^3/uL (0.0-0.5); EOS % 7.8 % (0.0-3.0); LYMPH # 1.0 10^3/uL (1.5-5.0); LYMPH % 14.3 % (24.0-44.0); MONO # 1.0 10^3/uL (0.0-0.8); MONO % 13.2 % (2.0-8.0); NEUTROPHILS # 4.6 10^3/uL (1.5-8.5); NEUTROPHILS % 63.5 % (36.0-66.0); PLATELET COUNT, AUTOMATED 357 10^3/uL (150-450)
[2025-05-26 18:17] LABS: C REACTIVE PROTEIN QUANTITATIV 5.18 MG/DL (<1.0)
[2025-05-26 18:21] LABS: ALT/SGPT 29 U/L (7.0-40); AST/SGOT 26 U/L (<34); CALCIUM LEVEL 9.7 MG/DL (8.3-10.6); CARBON DIOXIDE LEVEL 23 MMOL/L (20-31); CHLORIDE LEVEL 106 MMOL/L (98-107); CREATININE FOR GFR 1.32 MG/DL (0.70-1.30); GLOMERULAR FILTRATION RATE 53.9 (>35); POTASSIUM SERUM 4.6 MMOL/L (3.5-5.1); SODIUM LEVEL 142 MMOL/L (136-145)
== END ==
LOC: M WUC 15:28
PROVIDERS: ATTEND Internal Medicine Rheumatology
DX: L40.50 Arthropathic psoriasis, unspecified (principal)